=== PATIENT | female | born 1985 | race Caucasian/White ===

== ENCOUNTER 2016-11-16 08:45 | Outpatient (CLI) | payer OTHER | END 2016-11-16 08:46 | disposition home or self-care (01) | DX: Z36 Encounter for antenatal screening of mother (principal) ==

== ENCOUNTER 2016-11-22 14:40 | Outpatient (CLI) | payer OTHER | END 2016-11-22 15:15 | disposition home or self-care (01) | DX: Z34.83 Encounter for supervision of other normal pregnancy, third trimester (principal) ==

== ENCOUNTER 2016-12-05 23:06 | Outpatient (CLI) | payer OTHER ==
[2016-12-05] MEDS ORDERED: NIFEdipine 10 MG CAPSULE PO PRN (23:59)
[2016-12-06] MEDS ORDERED: LACTATED RINGERS 1,000 ML IV ONE (00:34)
[2016-12-06] MEDS ORDERED: SODIUM CHLORIDE FLUSH 0.9% 10 ML SYRINGE IVP ONE (00:57)
[2016-12-06] MEDS ORDERED: ACETAMINOPHEN 325 MG TABLET PO SCH ×2 (03:00→07:00)
[2016-12-06] MEDS ORDERED: LACTATED RINGERS 1,000 ML IV SCH (03:00)
[2016-12-06] MEDS ORDERED: ACETAMINOPHEN 325 MG TABLET PO ONE (07:00)
[2016-12-06] MEDS ORDERED: BETAMETHASONE 30 MG/5 ML VIAL IM ONE (07:30)
[2016-12-06] MEDS ORDERED: BETAMETHASONE 30 MG/5 ML VIAL ONE (08:46)
== END 2016-12-06 09:15 | disposition home or self-care (01) ==
DX: O60.03 Preterm labor without delivery, third trimester (principal); Z3A.31 31 weeks gestation of pregnancy; O34.219 Maternal care for unspecified type scar from previous cesarean delivery; N85.8 Other specified noninflammatory disorders of uterus; Z87.891 Personal history of nicotine dependence
CPT/HCPCS: 76816; 81001; 82731; 96372; 99214; A9270; J7120

== ENCOUNTER 2016-12-07 09:34 | Outpatient (CLI) | payer OTHER ==
[2016-12-07] MEDS ORDERED: BETAMETHASONE 30 MG/5 ML VIAL IM ONE (10:00)
== END 2016-12-07 10:00 | disposition home or self-care (01) ==
DX: O60.03 Preterm labor without delivery, third trimester (principal); Z3A.31 31 weeks gestation of pregnancy

== ENCOUNTER 2016-12-08 13:34 | Outpatient (CLI) | payer OTHER ==
[2016-12-08] MEDS ORDERED: NITROFURANTOIN MACRO 100 MG CAPSULE PO SCH (15:00)
[2016-12-08] MEDS ORDERED: NIFEdipine ER 90 MG TABLET PO SCH (15:00)
== END 2016-12-08 15:09 | disposition home or self-care (01) ==
DX: O23.13 Infections of bladder in pregnancy, third trimester (principal); O34.219 Maternal care for unspecified type scar from previous cesarean delivery; N85.8 Other specified noninflammatory disorders of uterus; Z3A.31 31 weeks gestation of pregnancy
CPT/HCPCS: 81001; 99213; A9270

== ENCOUNTER 2016-12-22 19:10 | Outpatient (CLI) | payer OTHER ==
[2016-12-22] MEDS ORDERED: TERBUTALINE 1 MG/ML VIAL SUBQ ONE (19:55)
[2016-12-22] MEDS ORDERED: TERBUTALINE 1 MG/ML VIAL SUBQ SCH (22:00)
[2016-12-22] MEDS ORDERED: TERBUTALINE 2.5 MG TABLET PO SCH (23:00)
== END 2016-12-22 23:28 | disposition home or self-care (01) ==
DX: O47.03 False labor before 37 completed weeks of gestation, third trimester (principal); Z3A.33 33 weeks gestation of pregnancy
CPT/HCPCS: 76817; 81001; 82731; 87081; 96372; 99214; A9270

== ENCOUNTER 2017-01-05 22:23 | Observation (INO) | payer OTHER ==
[2017-01-05] MEDS ORDERED: TERBUTALINE 1 MG/ML VIAL SUBQ ONE ×2 (22:41→22:45)
[2017-01-05] MEDS: AMOXICILLIN 250 MG CAPSULE PO SCH (23:51)
[2017-01-06] MEDS: TERBUTALINE 2.5 MG TABLET PO SCH ×2 (00:38→06:29)
[2017-01-06] MEDS: AMOXICILLIN 250 MG CAPSULE PO SCH (08:20)
== END 2017-01-06 08:25 | disposition home or self-care (01) ==
DX: O47.1 False labor at or after 37 completed weeks of gestation (principal); O23.93 Unspecified genitourinary tract infection in pregnancy, third trimester; B95.0 Streptococcus, group A, as the cause of diseases classified elsewhere; O34.219 Maternal care for unspecified type scar from previous cesarean delivery; N85.8 Other specified noninflammatory disorders of uterus; Z3A.37 37 weeks gestation of pregnancy
CPT/HCPCS: 81001; 96372; 99212; A9270

== ENCOUNTER 2017-01-30 11:17 | Outpatient (CLI) | payer OTHER | END 2017-01-30 11:18 | disposition home or self-care (01) | DX: Z01.818 Encounter for other preprocedural examination (principal); O34.219 Maternal care for unspecified type scar from previous cesarean delivery ==

== ENCOUNTER 2017-02-01 06:48 | Inpatient (IN) | payer OTHER ==
[~2017-02-01 06:48] MED LIST: LACTATED RINGERS 1,000 ML IV ONE
[2017-02-01] MEDS ORDERED: ceFAZolin 2 GM/50 ML 50 ML IV ONE (09:15)
[2017-02-01] MEDS ORDERED: CITRIC ACID/SODIUM CITRATE 15 ML UDC PO ONE (09:16)
[2017-02-01] MEDS ORDERED: LACTATED RINGERS 1,000 ML IV ONE ×2 (09:33→10:42)
[2017-02-01] MEDS ORDERED: MORPHINE PF 5 MG/10 ML AMP EP ONE (10:20)
[2017-02-01] MEDS ORDERED: ePHEDrine 50 MG/ML AMP IVP ONE (10:20)
[2017-02-01] MEDS ORDERED: ONDANSETRON 4 MG/2 ML VIAL IVP ONE (10:20)
[2017-02-01] MEDS ORDERED: fentaNYL 100 MCG/2 ML VIAL IVP ONE (10:20)
[2017-02-01] MEDS ORDERED: OXYTOCIN 10 UNIT/ML VIAL IV ONE (10:20)
[2017-02-01] MEDS ORDERED: diphenhydrAMINE INJ 50 MG/ML VIAL IVP ONE (10:20)
[2017-02-01] MEDS ORDERED: ACETAMINOPHEN 1,000 MG/100 ML VIAL IV ONE (10:20)
[2017-02-01] MEDS ORDERED: KETOROLAC 30 MG/ML VIAL IVP ONE (10:20)
[2017-02-01] MEDS ORDERED: METOCLOPRAMIDE 10 MG/2 ML VIAL IVP ONE (10:20)
[2017-02-01] MEDS ORDERED: ONDANSETRON 4 MG/2 ML VIAL IVP PRN (11:00)
[2017-02-01] MEDS ORDERED: diphenhydrAMINE 25 MG CAPSULE PO PRN (11:00)
[2017-02-01] MEDS ORDERED: OXYTOCIN/LACTATED RINGERS 250 ML IV ONE ×2 (11:00→22:10)
[2017-02-01] MEDS ORDERED: oxyCOD/ACETAMIN 5 MG/325 MG TABLET PO PRN (11:00)
[2017-02-01] MEDS: KETOROLAC 30 MG/ML VIAL IV SCH ×3 (17:03→23:55)
[2017-02-01] MEDS ORDERED: NALBUPHINE 20 MG/ML AMP IVP PRN (17:12)
[2017-02-01] MEDS: ACETAMINOPHEN 500 MG TABLET PO SCH (18:56)
[2017-02-01] MEDS: SIMETHICONE CHEW 80 MG TABLET PO SCH ×2 (18:56→22:16)
[2017-02-01] MEDS: DOCUSATE SODIUM 100 MG CAPSULE PO SCH (21:16)
[2017-02-01] MEDS ORDERED: SODIUM CHLORIDE FLUSH 0.9% 10 ML SYRINGE IVP ONE (23:16)
[2017-02-01] MEDS: LACTATED RINGERS 1,000 ML IV SCH (23:57)
[2017-02-02] MEDS: ACETAMINOPHEN 500 MG TABLET PO SCH ×4 (00:03→20:10)
[2017-02-02] MEDS: LACTATED RINGERS 1,000 ML IV SCH ×2 (00:04→03:34)
[2017-02-02] MEDS: IBUPROFEN 800 MG TABLET PO SCH ×5 (00:05→16:32)
[2017-02-02] MEDS ORDERED: SODIUM CHLORIDE FLUSH 0.9% 10 ML SYRINGE IVP ONE ×2 (01:54→10:30)
[2017-02-02] MEDS: oxyCODONE 5 MG TABLET PO PRN ×2 (04:21→15:49)
[2017-02-02] MEDS: KETOROLAC 30 MG/ML VIAL IV SCH (05:15)
[2017-02-02] MEDS: SIMETHICONE CHEW 80 MG TABLET PO SCH ×2 (05:30→16:32)
[2017-02-02] MEDS ORDERED: LEVOTHYROXINE 100 MCG TABLET PO SCH (09:00)
[2017-02-02] MEDS: SYNTHROID 150 MCG PO SCH (09:24)
[2017-02-02] MEDS: DOCUSATE SODIUM 100 MG CAPSULE PO SCH ×2 (09:25→20:10)
[2017-02-03] MEDS: SIMETHICONE CHEW 80 MG TABLET PO SCH ×2 (00:20→06:04)
[2017-02-03] MEDS: IBUPROFEN 800 MG TABLET PO SCH ×3 (00:21→12:36)
[2017-02-03] MEDS: oxyCODONE 5 MG TABLET PO PRN ×3 (00:30→12:36)
[2017-02-03] MEDS: ACETAMINOPHEN 500 MG TABLET PO SCH ×2 (03:24→12:36)
[2017-02-03] MEDS: SYNTHROID 150 MCG PO SCH (06:58)
[2017-02-03] MEDS: DOCUSATE SODIUM 100 MG CAPSULE PO SCH (08:33)
== END 2017-02-03 13:00 | disposition home or self-care (01) | DRG 766 ==
PROC: 10D00Z1 Extraction of Products of Conception, Low, Open Approach (ICD-10-PCS; principal; 2017-02-01 09:00)
DX: O34.211 Maternal care for low transverse scar from previous cesarean delivery (principal); N85.8 Other specified noninflammatory disorders of uterus; O99.284 Endocrine, nutritional and metabolic diseases complicating childbirth; E03.9 Hypothyroidism, unspecified; Z3A.38 38 weeks gestation of pregnancy; Z37.0 Single live birth

== ENCOUNTER 2017-02-14 10:39 | Outpatient (CLI) | payer OTHER | END 2017-02-14 10:40 | disposition home or self-care (01) | DX: R00.2 Palpitations (principal) ==

== ENCOUNTER 2017-05-01 08:00 | Outpatient (CLI) | payer OTHER | END 2017-05-01 08:01 | disposition home or self-care (01) | LOC: LAB.R 08:00 | PROVIDERS: ATTEND Obstetrics & Gynecology | DX: Z30.431 Encounter for routine checking of intrauterine contraceptive device (principal) | CPT/HCPCS: 87491; 87591 ==

== ENCOUNTER 2017-06-19 14:31 | Emergency (ER) | payer OTHER ==
[2017-06-19 15:35] LABS: BILIRUBIN,URINE NEGATIVE (NEGATIVE); PH,URINE 7.5 PH (5.0-7.5)
[2017-06-19 15:36] LABS: UA CHARGE (STRIP ONLY) YES; UR CULTURE IF IND NOT INDICATED
[2017-06-19 15:37] LABS: HCG UR QUAL NEGATIVE
[2017-06-19] MEDS ORDERED: HYDROmorphone 1 MG/ML SYRINGE IVP STA ×2 (15:53→19:39)
[2017-06-19] MEDS ORDERED: ONDANSETRON 4 MG/2 ML VIAL IVP STA ×2 (15:53→21:30)
--- NOTE | 2017-06-19 15:55 | ED Physician Documentation ---
PD HPI ABD PAIN - Stated complaint Stated Complaint: ABD PX - Chief complaint Chief Complaint: Abd Pain - History obtained from History obtained from: Patient, Family - History of Present Illness Timing - onset: Other (31-year-old woman, 4 months , had a , IUD in place with persistent bleeding. Starting around 9 AM developed relatively sudden onset right pelvic/right lower quadrant pain with nausea and vomiting but no urinary complaints or changes in bowel movements. No fevers.) Review of Systems Ten Systems: 10 systems reviewed and negative Constitutional: denies: Fever, Chills Throat: denies: Sore throat Cardiac: denies: Chest pain / pressure, Palpitations Respiratory: denies: Dyspnea PD PAST MEDICAL HISTORY - Past Medical History Neuro: Headache/migraine CHILD CAREGIVER: Ovarian cysts - Past Surgical History Past Surgical History: Yes /CHILD CAREGIVER: section - Present Medications Home Medications: Ambulatory Orders Medication Instructions Recorded Confirmed Levothyroxine Sodium [Synthroid] 150 mcg ORAL DAILY 06/19/17 06/19/17 - Allergies Allergies/Adverse Reactions: Allergies Allergy/AdvReac Type Severity Reaction Status Date / Time No Known Drug Allergies Allergy Verified 06/19/17 17:47 - Social History Does the pt smoke?: No Smoking Status: Never smoker Does the pt drink ETOH?: No Does the pt have substance abuse?: No - Family History Family history: reports: Non contributory - Immunizations Immunizations are current?: Yes - POLST Patient has POLST: No PD ED PE NORMAL - Vitals Vital signs reviewed: Yes - General General: Alert and oriented X 3, Other (Uncomfortable) - HEENT HEENT: PERRL, EOMI - Neck Neck: Supple, no meningeal sign, No bony TTP - Cardiac Cardiac: RRR, No murmur - Respiratory Respiratory: No respiratory distress, Clear bilaterally - Abdomen Abdomen: Other (Focally tender inferior to McBurney's point with positive Rovsing sign.) - Back Back: No CVA TTP, No spinal TTP - Derm Derm: Normal color, Warm and dry - Extremities Extremities: No edema, No calf tenderness / cord - Neuro Neuro: Alert and oriented X 3, Normal speech - Psych Psych: Normal mood, Normal affect Results - Vitals Vitals: Vital Signs - 24 hr 06/19/17 06/19/17 06/19/17 14:38 17:03 20:35 Temperature 36.0 C L 36.7 C Heart Rate 63 52 L 62 Respiratory 20 16 17 Rate Blood Pressure 122/73 119/69 124/70 O2 Saturation 98 99 94 Oxygen O2 Source Room air - Labs Labs: Laboratory Tests 06/19/17 06/19/17 06/19/17 15:30 15:30 16:57 WBC 7.8 RBC 5.18 Hgb 13.0 Hct 40.2 MCV 77.7 L MCH 25.1 L MCHC 32.3 RDW 14.3 Plt Count 305 MPV 7.9 Neut # 5.1 Lymph # 2.2 [place] # 0.5 Eos # 0.0 Baso # 0.0 Absolute Nucleated RBC 0.00 Nucleated RBCs 0.0 Sodium Potassium Chloride Carbon Dioxide Anion Gap BUN Creatinine Estimated GFR (MDRD) Glucose Calcium Total Bilirubin AST ALT Alkaline Phosphatase Total Protein Albumin Globulin Albumin/Globulin Ratio Lipase Urine Color YELLOW Urine Clarity CLEAR Urine pH 7.5 Ur Specific [place] 1.015 1.015 Urine Protein NEGATIVE Urine Glucose (UA) NEGATIVE Urine Ketones NEGATIVE Urine Occult Blood NEGATIVE Urine Nitrite NEGATIVE Urine Bilirubin NEGATIVE Urine Urobilinogen 0.2 (NORMAL) Ur Leukocyte Esterase NEGATIVE Ur Microscopic Review NOT INDICATED Urine Culture Comments NOT INDICATED Urine HCG, Qual NEGATIVE 06/19/17 16:57 WBC RBC Hgb Hct MCV MCH MCHC RDW Plt Count MPV Neut # Lymph # [place] # Eos # Baso # Absolute Nucleated RBC Nucleated RBCs Sodium 140 Potassium 4.0 Chloride 106 Carbon Dioxide 25 Anion Gap 9.0 BUN 13 Creatinine 0.7 Estimated GFR (MDRD) 97 Glucose 102 H Calcium 8.9 Total Bilirubin 0.3 AST 24 ALT 35 Alkaline Phosphatase 115 Total Protein 6.8 Albumin 4.1 Globulin 2.7 Albumin/Globulin Ratio 1.5 Lipase 31 Urine Color Urine Clarity Urine pH Ur Specific [place] Urine Protein Urine Glucose (UA) Urine Ketones Urine Occult Blood Urine Nitrite Urine Bilirubin Urine Urobilinogen Ur Leukocyte Esterase Ur Microscopic Review Urine Culture Comments Urine HCG, Qual - Rads (name of study) Pelvic sono Radiology: Prelim report reviewed (Normal, no ovarian cyst, IUD in position.) ct a/p Radiology: EMP read contemporaneously (Diverticulosis without diverticulitis) PD MEDICAL DECISION MAKING - ED course ED course: 31-year-old woman with acute right lower quadrant pain, seems like a history more consistent with ovarian pathology then appendix and her blood work was without leukocytosis or left shift so an ultrasound was initially pursued without any significant findings. Given persistent severe pain this was followed by CT. CT was without acute findings, she does have incidental diverticulosis which was discussed with her. Her pain was somewhat better at that point and she was given appendicitis/close follow-up precautions. Departure - Departure Disposition: Home, Self Care Clinical Impression: Abdominal pain Qualifiers: Abdominal location: right lower quadrant Qualified Code(s): R10.31 - Right lower quadrant pain Condition: Good Record reviewed to determine appropriate education?: Yes Instructions: ED Abdominal Pain Unkn Cause Comments: As discussed based on the workup and imaging there is no clear cause for your abdominal pain tonight. Return anytime if worse or if new symptoms develop, or in 12-24 hours if pain is not gone.
[2017-06-19] MEDS ORDERED: HYDROmorphone 1 MG/ML SYRINGE ONE ×2 (16:12→20:02)
[2017-06-19] MEDS ORDERED: ONDANSETRON 4 MG/2 ML VIAL ONE ×2 (16:12→21:32)
[2017-06-19 17:03] LABS: BASOPHILS % (AUTO) 0.5 %; EOSINOPHILS % (AUTO) 0.5 %; HCT - HEMATOCRIT 40.2 % (37.0-47.0); LYMPHOCYTES # (AUTO) 2.2 10^3/uL (1.5-3.5); LYMPHOCYTES % (AUTO) 27.7 %; MEAN CORPUSCULAR HEMOGLOBIN 25.1 pg (27.0-31.0); MEAN CORPUSCULAR HGB CONC 32.3 g/dL (32.0-36.0); MEAN CORPUSCULAR VOLUME 77.7 fL (81.0-99.0); MEAN PLATELET VOLUME 7.9 fL (7.9-10.8); MONOCYTES # (AUTO) 0.5 10^3/uL (0.0-1.0); MONOCYTES % (AUTO) 6.4 %; NEUTROPHILS # (AUTO) 5.1 10^3/uL (1.5-6.6); NEUTROPHILS % (AUTO) 64.9 %; RED BLOOD COUNT 5.18 10^6/uL (4.20-5.40); RED CELL DISTRIBUTION WIDTH 14.3 % (12.0-15.0); UNCORRECTED WHITE BLOOD COUNT 7.8 x10^3/uL; WHITE BLOOD COUNT 7.8 x10^3/uL (4.8-10.8)
[2017-06-19 17:13] LABS: ALBUMIN/GLOBULIN RATIO 1.5 (1.0-2.2); BILIRUBIN,TOTAL 0.3 mg/dL (0.2-1.0); CALCIUM 8.9 mg/dL (8.5-10.3); CREATININE 0.7 mg/dL (0.4-1.0); TOTAL PROTEIN 6.8 g/dL (6.7-8.2)
[2017-06-19] MEDS ORDERED: KETOROLAC 60 MG/2 ML VIAL IVP STA (17:42)
[2017-06-19] MEDS ORDERED: KETOROLAC 30 MG/ML VIAL ONE (18:05)
--- NOTE | 2017-06-19 19:45 | Ultrasound Preliminary Report ---
Exam: US Pelvic Complete - Non OB IMPRESSION: Normal study. IUD in place. [facility] SITE ID: [id number]
--- NOTE | 2017-06-19 19:47 | Ultrasound Report ---
REVISED: THIS REPORT WAS ORIGINALLY SIGNED ON 06/19/2017 @ 1947. ORDERS LINKED ON 06/22/2017. EXAM: PELVIC ULTRASOUND EXAM DATE: 06/19/2017 07:14 PM. CLINICAL HISTORY: R pelvic pain. COMPARISON: None. TECHNIQUE: Realtime transabdominal pelvic scan performed to identify the uterus and adnexa and as an overview of other pelvic structures, followed by transvaginal scan to provide greater detail of the uterus and adnexa, with static image documentation. FINDINGS: Uterus: 9.2 x 4.1 x 5.5 cm, volume 108 cc. Anteverted position. Normal overall size and echotexture. Masses: None. Endometrium: 5.[address] Cervix: Small nabothian cysts. Right Ovary: 3.5 x 2.1 x 3.3 cm, volume 12.6 cc. Normal echotexture and blood flow. Left Ovary: 3.5 x 1.9 x 2.2 cm, volume 7.6 cc. Normal echotexture and blood flow. Free Fluid: None. Other: None. IMPRESSION: Normal study. IUD in place. [facility] Referring Provider Line: [phone] SITE ID: [id number]
[2017-06-19] MEDS ORDERED: IOPAMIDOL-300 100 ML VIAL IVP ONE (21:27)
--- NOTE | 2017-06-19 22:06 | CT Preliminary Report ---
Exam: CT Abdomen/Pelvis W/ IMPRESSION: 1. Diverticulosis. No active inflammation. 2. IUD noted in the uterus. 3. Normal appendix. [facility] SITE ID: [id number]
--- NOTE | 2017-06-19 22:18 | CT Report ---
EXAM: CT ABDOMEN AND PELVIS EXAM DATE: 06/19/2017 09:31 PM. CLINICAL HISTORY: IV only, right lower quadrant pain. COMPARISONS: 06/19/2017. TECHNIQUE: Routine helical CT imaging was performed through the abdomen and pelvis. IV contrast: 100 mL of Isovue-300. Enteric contrast: No. Reconstructions: Coronal and sagittal. In accordance with CT protocol optimization, one or more of the following dose reduction techniques w ere utilized for this exam: automated exposure control, adjustment of mA and/or KV based on patient s ize, or use of iterative reconstructive technique. FINDINGS: Lung Bases: Unremarkable. Liver: Normal. No masses. Gallbladder/Bile Ducts: Unremarkable. Spleen: Normal. Pancreas: Normal. Adrenal Glands: Normal. Kidneys: Normal. No masses or hydronephrosis. 1.8 cm anterior left renal cyst. Peritoneal Cavity/Bowel: Normal. No free fluid, free air or adenopathy. No masses or acute inflammato ry process. The appendix is well visualized and normal. There are multiple diverticula seen which mos t severely affect the sigmoid colon. No wall thickening or adjacent inflammation seen. No obstructi on noted. Pelvic Organs: IUD is noted in the uterus. The bladder and visualized pelvic organs are within normal limits. Vasculature: No aneurysms or other significant abnormality. Bones: No significant abnormality. Other: Small umbilical hernia noted. No incarcerated bowel. IMPRESSION: 1. Diverticulosis. No active inflammation. 2. IUD noted in the uterus. 3. Normal appendix. [facility] Referring Provider Line: [phone] SITE ID: [id number]
[2017-06-19] MEDS ORDERED: ONDANSETRON ODT 4 MG Prepack 2 TL PRN (22:21)
[2017-06-19] MEDS ORDERED: HYDROcod/ACET 5/325 Prepack 6 PO STA (22:21)
[2017-06-19] MEDS ORDERED: HYDROcod/ACET 5/325 Prepack 6 PO ONE (22:28)
[2017-06-19] MEDS ORDERED: ONDANSETRON ODT 4 MG Prepack 2 TL ONE (22:28)
[2017-06-19 22:31] VITALS: BP 115/74
== END 2017-06-19 22:43 | disposition home or self-care (01) ==
LOC: ED 14:31
DX: R10.2 Pelvic and perineal pain (principal); R10.31 Right lower quadrant pain; Z97.5 Presence of (intrauterine) contraceptive device
CPT/HCPCS: 36415; 74177; 76830; 76856; 80053; 81003; 81025; 83690; 85025; 96374; 96375; 96376; 99283; 99284; J1170; Q9967; 81001; 87086

== ENCOUNTER 2017-06-20 17:19 | Emergency (ER) | payer OTHER ==
[2017-06-20] MEDS ORDERED: HYDROmorphone 1 MG/ML SYRINGE IVP STA (17:39)
[2017-06-20] MEDS ORDERED: ONDANSETRON 4 MG/2 ML VIAL IVP STA (17:39)
--- NOTE | 2017-06-20 17:43 | ED Physician Documentation ---
PD HPI ABD PAIN - Stated complaint Stated Complaint: LOW ABD PX/NAUSEA - Chief complaint Chief Complaint: Abd Pain - History obtained from History obtained from: Patient - History of Present Illness Timing - onset: Other (31-year-old woman, 4 months after , repeat . With IUD in place, with persistent bleeding from the IUD. She was seen last night with abrupt onset right lower quadrant pain. Labs were unremarkable. She had an ultrasound which was normal followed by a CT showing only diverticula. Discharged with instructions to return if not better. Today she has persistent pain, now across the pelvis and down into her groin a little bit but still worse on the right than the left with persistent bleeding, but not increased and nausea but no vomiting. 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 - Past Surgical History Past Surgical History: Yes /CUSTOM STUDIO COORDINATOR: section - Present Medications Home Medications: Ambulatory Orders Medication Instructions Recorded Confirmed Levothyroxine Sodium [Synthroid] 150 mcg ORAL DAILY 06/19/17 06/20/17 - Allergies Allergies/Adverse Reactions: Allergies Allergy/AdvReac Type Severity Reaction Status Date / Time No Known Drug Allergies Allergy Verified 06/19/17 17:47 - Social History Does the pt smoke?: No Smoking Status: Never smoker Does the pt drink ETOH?: No Does the pt have substance abuse?: No - Family History Family history: reports: Non contributory - Immunizations Immunizations are current?: Yes - POLST Patient has POLST: No PD ED PE NORMAL - Vitals Vital signs reviewed: Yes - General General: Alert and oriented X 3, Other (Uncomfortable) - HEENT HEENT: Moist mucous membranes, Pharynx benign - Neck Neck: Supple, no meningeal sign, No bony TTP - Cardiac Cardiac: RRR, No murmur - Respiratory Respiratory: No respiratory distress, Clear bilaterally - Abdomen Abdomen: Other (Tender in the pelvic area, right greater than left without surgical signs) - Female Female : Radiologic Technician present (Jayla CRAIG), Other (Moderate old appearing blood with low riding IUD which was removed with her wishes. No CMT, Mild L adnexal TTP.) - Back Back: No CVA TTP, No spinal TTP - Derm Derm: Normal color, Warm and dry - Extremities Extremities: No edema, No calf tenderness / cord - Neuro Neuro: Alert and oriented X 3, Normal speech - Psych Psych: Normal mood, Normal affect Results - Vitals Vitals: Vital Signs - 24 hr 06/20/17 06/20/17 06/20/17 17:24 18:38 19:25 Temperature 36.3 C L 36.8 C Heart Rate 61 52 L 56 L Respiratory 17 16 15 Rate Blood Pressure 132/84 H 126/75 111/67 O2 Saturation 98 95 96 06/20/17 21:15 Temperature 36.3 C L Heart Rate 57 L Respiratory 16 Rate Blood Pressure 118/65 O2 Saturation 99 Oxygen O2 Source Room air - Labs Labs: Laboratory Tests 06/20/17 06/20/17 18:04 18:04 WBC 6.8 RBC 5.19 Hgb 13.1 Hct 40.7 MCV 78.5 L MCH 25.3 L MCHC 32.3 RDW 14.6 Plt Count 306 MPV 8.0 Neut # 3.5 Lymph # 2.7 [place] # 0.5 Eos # 0.0 Baso # 0.1 Absolute Nucleated RBC 0.00 Nucleated RBCs 0.0 Sodium 140 Potassium 3.5 Chloride 108 Carbon Dioxide 25 Anion Gap 7.0 BUN 13 Creatinine 0.9 Estimated GFR (MDRD) 73 L Glucose 128 H Calcium 8.7 Total Bilirubin 0.6 AST 25 ALT 32 Alkaline Phosphatase 104 Total Protein 6.1 L Albumin 3.9 Globulin 2.2 Albumin/Globulin Ratio 1.8 Lipase 25 PD MEDICAL DECISION MAKING - ED course ED course: 31-year-old woman with now about 30 hours of lower abdominal pain, moving across the bottom. Imaging, both sonogram and a CT was negative yesterday except for diverticula. Pelvic exam was done today with really no pelvic tenderness, per her request the IUD was removed and then we waited about an hour to see if her pain was getting better which was not, it was worsening. At that point I called the on-call surgeon, Dr. Yon Doherty who will come and consult. See his note, but briefly he felt that maybe she had some right sided constipation, but there was no surgical or other urgent need given her negative findings. Recommended trialing some mag citrate and outpatient follow-up. Departure - Departure Disposition: 01 Home, Self Care Clinical Impression: Abdominal pain, Pelvic pain Condition: Good Record reviewed to determine appropriate education?: Yes Instructions: Abdominal Pain Follow-Up: Yon Doherty MD [Provider Admit Priv/Credential] - Within 1 week Comments: Return anytime if worsening or for new symptoms, especially fever. Discharge Date/Time: 06/20/17 21:17
[2017-06-20] MEDS ORDERED: ONDANSETRON 4 MG/2 ML VIAL ONE (17:54)
[2017-06-20] MEDS ORDERED: HYDROmorphone 1 MG/ML SYRINGE ONE (17:54)
[2017-06-20] MEDS ORDERED: SODIUM CHLORIDE FLUSH 0.9% 10 ML SYRINGE IVP ONE (17:55)
[2017-06-20 18:12] LABS: BASOPHILS # (AUTO) 0.1 10^3/uL (0.0-0.1); BASOPHILS % (AUTO) 0.8 %; EOSINOPHILS % (AUTO) 0.7 %; HCT - HEMATOCRIT 40.7 % (37.0-47.0); HGB - HEMOGLOBIN 13.1 g/dL (12.0-16.0); LYMPHOCYTES # (AUTO) 2.7 10^3/uL (1.5-3.5); LYMPHOCYTES % (AUTO) 39.9 %; MEAN CORPUSCULAR HEMOGLOBIN 25.3 pg (27.0-31.0); MEAN CORPUSCULAR HGB CONC 32.3 g/dL (32.0-36.0); MEAN CORPUSCULAR VOLUME 78.5 fL (81.0-99.0); MONOCYTES # (AUTO) 0.5 10^3/uL (0.0-1.0); MONOCYTES % (AUTO) 6.8 %; NEUTROPHILS # (AUTO) 3.5 10^3/uL (1.5-6.6); NEUTROPHILS % (AUTO) 51.8 %; RED BLOOD COUNT 5.19 10^6/uL (4.20-5.40); RED CELL DISTRIBUTION WIDTH 14.6 % (12.0-15.0); UNCORRECTED WHITE BLOOD COUNT 6.8 x10^3/uL; WHITE BLOOD COUNT 6.8 x10^3/uL (4.8-10.8)
[2017-06-20 18:25] LABS: ALBUMIN/GLOBULIN RATIO 1.8 (1.0-2.2); BILIRUBIN,TOTAL 0.6 mg/dL (0.2-1.0); CALCIUM 8.7 mg/dL (8.5-10.3); CREATININE 0.9 mg/dL (0.4-1.0); POTASSIUM 3.5 mmol/L (3.5-5.0); TOTAL PROTEIN 6.1 g/dL (6.7-8.2)
[2017-06-20] MEDS ORDERED: PROMETHAZINE INJ 12.5 MG in SODIUM CHLORIDE 0.9% 50 ML IV STA (19:00)
[2017-06-20] MEDS ORDERED: PROMETHAZINE 25 MG/1 ML VIAL ONE (19:28)
[2017-06-20] MEDS ORDERED: oxyCODONE/ACET 5/325 Prepack 4 PO STA (21:02)
[2017-06-20] MEDS ORDERED: MAGNESIUM CITRATE 296 ML BOTTLE PO STA (21:02)
[2017-06-20] MEDS ORDERED: oxyCODONE/ACET 5/325 Prepack 4 PO ONE (21:11)
[2017-06-20] MEDS ORDERED: MAGNESIUM CITRATE 296 ML BOTTLE ONE (21:12)
[2017-06-20 21:17] VITALS: BP 118/65
== END 2017-06-20 21:17 | disposition home or self-care (01) ==
LOC: ED 17:19
DX: R10.2 Pelvic and perineal pain (principal); Z30.432 Encounter for removal of intrauterine contraceptive device
CPT/HCPCS: 36415; 80053; 83690; 85025; 87491; 87591; 96365; 96375; 99283; 99284; A9270; J1170; J7040

== ENCOUNTER 2017-10-31 22:35 | Emergency (ER) | payer OTHER ==
--- NOTE | 2017-10-31 22:46 | ED Physician Documentation ---
PD HPI ABD PAIN - Stated complaint Stated Complaint: ABD PX - Chief complaint Chief Complaint: Abd Pain - History obtained from History obtained from: Patient - History of Present Illness Timing - onset: Enter time (17:00), Today Timing - duration: Hours Timing - details: Abrupt onset, Waxing and waning Pain level now: 6 Quality: Sharp, Pain Location: RLQ Radiation: Other (pain does not radiate) Improved by: Laying still, Position Worsened by: Moving, Position Associated symptoms: No: Fever, Nausea, Vomiting, Diarrhea, Constipation Similar symptoms before: Has not had sx before Recently seen: Not recently seen - Additional information Additional information: c/o right lower quadrant pain, sharp, since 5 PM , waxing and waning. Review of Systems Constitutional: denies: Fever, Chills, Sweats Cardiac: reports: Reviewed and negative Respiratory: reports: Reviewed and negative GI: reports: Abdominal Pain. denies: Nausea, Vomiting, Constipation, Diarrhea : reports: LMP (yesterday (4-5 days late)). 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 - Past Surgical History Past Surgical History: Yes /NURSERY ATTENDANT: section - Present Medications Home Medications: Ambulatory Orders Medication Instructions Recorded Confirmed Levothyroxine Sodium [Synthroid] 150 mcg ORAL DAILY 06/19/17 10/31/17 oxyCODONE/ACET 5/325 [Percocet 5 1 - 2 each PO Q6H PRN #10 tablet 11/01/17 mg/325 mg] - Allergies Allergies/Adverse Reactions: Allergies Allergy/AdvReac Type Severity Reaction Status Date / Time No Known Drug Allergies Allergy Verified 10/31/17 22:40 - Social History Does the pt smoke?: No Smoking Status: Never smoker Does the pt drink ETOH?: No Does the pt have substance abuse?: No - Immunizations Immunizations are current?: Yes - POLST Patient has POLST: No PD ED PE NORMAL - Vitals Vital signs reviewed: Yes - General General: Alert and oriented X 3, Well developed/nourished, Other (appears to be in waxing and waning degree of pain during H+P) - HEENT HEENT: Moist mucous membranes - Neck Neck: Supple, no meningeal sign - Cardiac Cardiac: RRR, No murmur - Respiratory Respiratory: No respiratory distress, Clear bilaterally - Abdomen Abdomen: Soft, Non distended - Back Back: No CVA TTP - Derm Derm: Normal color, Warm and dry - Extremities Extremities: No edema - Neuro Neuro: Alert and oriented X 3 PD ED PE EXPANDED - Abdomen Abdomen: Tender to palpation (RLQ), Other ((+) Rovsing's sign (with palpation LLQ)). No: Rebound, Guarding Results - Vitals Vitals: Vital Signs - 24 hr 10/31/17 10/31/17 10/31/17 22:38 23:36 23:55 Temperature 36.7 C Heart Rate 82 60 64 Respiratory 18 14 16 Rate Blood Pressure 156/110 H 142/95 H 142/95 H O2 Saturation 98 97 98 11/01/17 01:10 Temperature 36.4 C L Heart Rate 68 Respiratory 16 Rate Blood Pressure 142/90 H O2 Saturation 100 Oxygen O2 Source Room air - Labs Labs: Laboratory Tests 10/31/17 10/31/17 10/31/17 22:45 22:47 22:47 WBC 14.8 H RBC 5.93 H Hgb 14.7 Hct 45.6 MCV 77.0 L MCH 24.9 L MCHC 32.3 RDW 14.2 Plt Count 363 MPV 7.7 L Neut # 8.5 H Lymph # 5.2 H [place] # 0.9 Eos # 0.1 Baso # 0.1 Absolute Nucleated RBC 0.00 Band Neuts % (Manual) Not Reportable Abnorm Lymph % (Manual) Not Reportable Nucleated RBC % 0.0 Neutrophils # (Manual) Not Reportable Lymphocytes # (Manual) Not Reportable Monocytes # (Manual) Not Reportable Eosinophils # (Manual) Not Reportable Basophils # (Manual) Not Reportable Differential Comment MANUAL=AUTO DIFF Manual Slide Review Indicated Platelet Estimate NORMAL (130-450,000) RBC Morph Micro Appear NORMAL APPEARANCE Sodium 137 Potassium 3.7 Chloride 103 Carbon Dioxide 19 L Anion Gap 15.0 H BUN 14 Creatinine 0.8 Estimated GFR (MDRD) 83 L Glucose 100 Calcium 9.9 Total Bilirubin 0.3 AST 26 ALT 35 Alkaline Phosphatase 101 Total Protein 8.0 Albumin 4.7 Globulin 3.3 Albumin/Globulin Ratio 1.4 Lipase 45 Urine Color YELLOW Urine Clarity CLEAR Urine pH 6.0 Ur Specific [place] 1.025 Urine Protein NEGATIVE Urine Glucose (UA) NEGATIVE Urine Ketones NEGATIVE Urine Occult Blood SMALL H Urine Nitrite NEGATIVE Urine Bilirubin NEGATIVE Urine Urobilinogen 0.2 (NORMAL) Ur Leukocyte Esterase NEGATIVE Urine RBC 0-5 Urine WBC 0-3 Ur Squamous Epith Cells MANY Squamous H Urine Bacteria None Seen Ur Microscopic Review INDICATED Urine Culture Comments NOT INDICATED Urine HCG, Qual NEGATIVE - Rads (name of study) CT A/P Radiology: Prelim report reviewed, See rad report PD MEDICAL DECISION MAKING - ED course Complexity details: reviewed old records, reviewed results, re-evaluated patient , considered differential, d/w patient Departure - Departure Disposition: Home, Self Care Clinical Impression: Abdominal pain Condition: Good Instructions: ED Abdominal Pain Unkn Cause Follow-Up: ZELDA Moy [Provider Group] Prescriptions: oxyCODONE/ACET 5/325 [Percocet 5 mg/325 mg] 1 - 2 each PO Q6H PRN #10 tablet PRN Reason: Pain Discharge Date/Time: 11/01/17 01:12
[2017-10-31 22:53] LABS: BILIRUBIN,URINE NEGATIVE (NEGATIVE); GLUCOSE, URINE (UA) NEGATIVE (NEGATIVE); KETONES,URINE (UA) NEGATIVE (NEGATIVE); LEUKOCYTE ESTERASE, URINE NEGATIVE (NEGATIVE); NITRITE,URINE NEGATIVE (NEGATIVE); OCCULT BLOOD,URINE SMALL (NEGATIVE); PROTEIN,URINE NEGATIVE (NEGATIVE); UROBILINOGEN,URINE 0.2 (NORMAL) E.U./dL (NORMAL)
[2017-10-31 22:54] LABS: BASOPHILS # (AUTO) 0.1 10^3/uL (0.0-0.1); BASOPHILS % (AUTO) 0.8 %; EOSINOPHILS # (AUTO) 0.1 10^3/uL (0.0-0.7); EOSINOPHILS % (AUTO) 0.8 %; HGB - HEMOGLOBIN 14.7 g/dL (12.0-16.0); LYMPHOCYTES # (AUTO) 5.2 10^3/uL (1.5-3.5); MEAN CORPUSCULAR HEMOGLOBIN 24.9 pg (27.0-31.0); MEAN CORPUSCULAR HGB CONC 32.3 g/dL (32.0-36.0); MEAN PLATELET VOLUME 7.7 fL (7.9-10.8); MONOCYTES # (AUTO) 0.9 10^3/uL (0.0-1.0); MONOCYTES % (AUTO) 6.1 %; NEUTROPHILS # (AUTO) 8.5 10^3/uL (1.5-6.6); NEUTROPHILS % (AUTO) 57.3 %; PLT - PLATELET COUNT 363 10^3/uL (130-450); RED BLOOD COUNT 5.93 10^6/uL (4.20-5.40); RED CELL DISTRIBUTION WIDTH 14.2 % (12.0-15.0); WHITE BLOOD COUNT 14.8 x10^3/uL (4.8-10.8)
[2017-10-31 22:54] LABS: CLARITY,URINE CLEAR (CLEAR)
[2017-10-31 22:55] LABS: HCG UR QUAL NEGATIVE
[2017-10-31 23:02] LABS: RBC,URINE 0-5 /HPF (0-5)
[2017-10-31] MEDS ORDERED: SODIUM CHLORIDE 0.9% 1,000 ML IV STA (23:02)
[2017-10-31] MEDS ORDERED: MORPHINE 2 MG/ML SYRINGE IVP STA (23:02)
[2017-10-31 23:03] LABS: BACTERIA,URINE None Seen /HPF (None Seen); SQUAMOUS EPITHELIAL CELL,UR MANY Squamous (<= Few)
[2017-10-31 23:05] LABS: ALBUMIN 4.7 g/dL (3.2-5.5); ALBUMIN/GLOBULIN RATIO 1.4 (1.0-2.2); BILIRUBIN,TOTAL 0.3 mg/dL (0.2-1.0); CALCIUM 9.9 mg/dL (8.5-10.3); CREATININE 0.8 mg/dL (0.4-1.0)
[2017-10-31] MEDS ORDERED: IOPAMIDOL-300 100 ML VIAL ONE (23:18)
[2017-10-31 23:37] LABS: DIFFERENTIAL COMMENT MANUAL=AUTO DIFF; PLATELET ESTIMATE, MANUAL NORMAL (130-450,000) (NORMAL); RBC MORPHOLOGY (MULTIPLE) NORMAL APPEARANCE (NORMAL)
[2017-10-31] MEDS ORDERED: IOPAMIDOL-300 100 ML VIAL IVP ONE (23:38)
--- NOTE | 2017-11-01 00:03 | CT Report ---
EXAM: CT ABDOMEN AND PELVIS EXAM DATE: 10/31/2017 11:42 PM. CLINICAL HISTORY: RLQ pain, tenderness. COMPARISONS: 06/19/2017. TECHNIQUE: Routine helical CT imaging was performed through the abdomen and pelvis. IV contrast: 100M L ISOVUE 300. Enteric contrast: No. Reconstructions: Coronal and sagittal. In accordance with CT protocol optimization, one or more of the following dose reduction techniques w ere utilized for this exam: automated exposure control, adjustment of mA and/or KV based on patient s ize, or use of iterative reconstructive technique. FINDINGS: Lung Bases: Unremarkable. Liver: No focal lesion identified. Gallbladder/Bile Ducts: Unremarkable. Spleen: Mildly enlarged at 13.2 cm. Pancreas: Normal. Adrenal Glands: Normal. Kidneys: Left renal cyst is unchanged. No masses or hydronephrosis. Peritoneal Cavity/Bowel: No bowel obstruction seen. No diverticulitis. Normal-sized mesenteric lymph nodes. No free air or free fluid. Appendix appears normal. Pelvic Organs: Normal. The bladder and visualized pelvic organs are within normal limits. Vasculature: No aneurysms or other significant abnormality. Bones: No significant abnormality. Other: Small umbilical and periumbilical hernias containing fat. IMPRESSION: 1. Appendix appears normal. 2. Mild splenomegaly. 3. No acute abnormality seen. [facility] Referring Provider Line: [phone] SITE ID: [id number]
--- NOTE | 2017-11-01 00:03 | CT Preliminary Report ---
Exam: CT ABDOMEN/PELVIS W/ IMPRESSION: 1. Appendix appears normal. 2. Mild splenomegaly. 3. No acute abnormality seen. [facility] SITE ID: [id number]
[2017-11-01] MEDS ORDERED: KETOROLAC 60 MG/2 ML VIAL IVP STA (00:44)
[2017-11-01] MEDS ORDERED: oxyCODONE/ACET 5/325 Prepack 4 PO STA (00:44)
[2017-11-01 01:12] VITALS: BP 142/90
== END 2017-11-01 01:12 | disposition home or self-care (01) ==
LOC: ED 22:35
DX: R10.31 Right lower quadrant pain (principal); R10.32 Left lower quadrant pain
CPT/HCPCS: 36415; 74177; 80053; 81001; 81025; 83690; 85025; 96361; 96374; 96375; 99284; J2270; Q9967; 81003; 87086

== ENCOUNTER 2018-03-04 10:29 | Emergency (ER) | payer OTHER ==
[2018-03-04 11:03] LABS: BILIRUBIN,URINE NEGATIVE (NEGATIVE); GLUCOSE, URINE (UA) NEGATIVE (NEGATIVE); KETONES,URINE (UA) NEGATIVE (NEGATIVE); LEUKOCYTE ESTERASE, URINE NEGATIVE (NEGATIVE); NITRITE,URINE NEGATIVE (NEGATIVE); OCCULT BLOOD,URINE TRACE-LYSE (NEGATIVE); PROTEIN,URINE NEGATIVE (NEGATIVE); UROBILINOGEN,URINE 0.2 (NORMAL) E.U./dL (NORMAL)
[2018-03-04 11:04] LABS: BASOPHILS # (AUTO) 0.1 10^3/uL (0.0-0.1); BASOPHILS % (AUTO) 0.7 %; EOSINOPHILS % (AUTO) 0.3 %; HGB - HEMOGLOBIN 14.7 g/dL (12.0-16.0); LYMPHOCYTES # (AUTO) 2.4 10^3/uL (1.5-3.5); LYMPHOCYTES % (AUTO) 19.9 %; MEAN CORPUSCULAR HEMOGLOBIN 25.4 pg (27.0-31.0); MEAN CORPUSCULAR HGB CONC 32.9 g/dL (32.0-36.0); MEAN CORPUSCULAR VOLUME 77.3 fL (81.0-99.0); MEAN PLATELET VOLUME 8.2 fL (7.9-10.8); MONOCYTES # (AUTO) 0.5 10^3/uL (0.0-1.0); NEUTROPHILS # (AUTO) 9.1 10^3/uL (1.5-6.6); NEUTROPHILS % (AUTO) 75.1 %; PLT - PLATELET COUNT 288 10^3/uL (130-450); RED BLOOD COUNT 5.78 10^6/uL (4.20-5.40); RED CELL DISTRIBUTION WIDTH 14.2 % (12.0-15.0); WHITE BLOOD COUNT 12.1 x10^3/uL (4.8-10.8)
[2018-03-04 11:06] LABS: CLARITY,URINE SL. CLOUDY (CLEAR)
[2018-03-04 11:18] LABS: ALBUMIN 3.8 g/dL (3.2-5.5); ALBUMIN/GLOBULIN RATIO 1.2 (1.0-2.2); BILIRUBIN,TOTAL 0.6 mg/dL (0.2-1.0); CALCIUM 9.4 mg/dL (8.5-10.3); CREATININE 0.6 mg/dL (0.4-1.0); TOTAL PROTEIN 7.1 g/dL (6.7-8.2)
[2018-03-04 11:25] LABS: AMORPHOUS SEDIMENT,UR Moderate /LPF; BACTERIA,URINE Moderate /HPF (None Seen); SQUAMOUS EPITHELIAL CELL,UR MOD Squamous (<= Few)
--- NOTE | 2018-03-04 11:29 | ED Physician Documentation ---
PD HPI HEADACHE - Stated complaint Stated Complaint: HERNÁNDEZ/CRAMPING FEMALE / 9 WKS PREG - Chief complaint Chief Complaint: Abd Pain - History obtained from History obtained from: Patient, Family - History of Present Illness Timing - onset: How many days ago (3) Timing - onset during: Rest Timing - duration: Days (3) Timing - details: Gradual onset, Still present Worst headache ever?: No: Worst headache ever? Location: Front Quality: Throbbing Associated symptoms: Nausea, Vomiting. No: Fever, Stiff neck, Weakness, Numbness, Syncope, Seizure, Eye pain, Vision changes Improved by: Rest, Dark room, Quiet Worsened by: Light, Noise, Moving Contributing factors: No: Anticoagulated Similar symptoms before: Diagnosis (migraine) Recently seen: Other - Additional information Additional information: 32-year-old female with a history of migraine headaches has recently gone through in vitro fertilization and is with twins. She is approximately 9 weeks along. She has a history of migraines and is usually treated with Botox. She had her last Botox treatment 3 months ago and now she has a frontal headache. This is similar to what she usually gets with her headaches and she has had luck in the past with use of ibuprofen and Excedrin migraine. She has had some vomiting with this she has some nausea now and her headache is typical for her migraines. Review of Systems Constitutional: denies: Fever Eyes: reports: Photophobia. denies: Decreased vision Ears: denies: Ear pain Nose: denies: Rhinorrhea / runny nose, Congestion Throat: denies: Sore throat Cardiac: denies: Chest pain / pressure, Palpitations Respiratory: denies: Dyspnea, Cough GI: reports: Nausea, Vomiting. denies: Abdominal Pain : denies: Dysuria, Frequency Skin: denies: Rash Musculoskeletal: denies: Neck pain, Back pain, Extremity pain Neurologic: reports: Headache. denies: Generalized weakness, Focal weakness, Numbness, Head injury, LOC PD PAST MEDICAL HISTORY - Past Medical History Endocrine/Autoimmune: HyPOthyroidism COPY READER: Ovarian cysts - Past Surgical History Past Surgical History: Yes /COPY READER: section - Present Medications Home Medications: Ambulatory Orders Medication Instructions Recorded Confirmed Levothyroxine Sodium [Synthroid] 175 mcg ORAL DAILY 06/19/17 10/31/17 Progesterone,Micronized 100 mg PO BID 03/04/18 03/04/18 [Progesterone] - Allergies Allergies/Adverse Reactions: Allergies Allergy/AdvReac Type Severity Reaction Status Date / Time No Known Drug Allergies Allergy Verified 03/04/18 10:35 - Social History Does the pt smoke?: No Smoking Status: Never smoker Does the pt drink ETOH?: No Does the pt have substance abuse?: No - Immunizations Immunizations are current?: Yes - POLST Patient has POLST: No PD ED PE NORMAL - Vitals Vital signs reviewed: Yes (hypertensive ) - General General: Alert and oriented X 3, No acute distress, Well developed/nourished - HEENT HEENT: Atraumatic, PERRL, EOMI, Ears normal, Moist mucous membranes, Pharynx benign, Dentition benign - Neck Neck: Supple, no meningeal sign, No bony TTP, No JVD - Cardiac Cardiac: RRR, No murmur - Respiratory Respiratory: No respiratory distress, Clear bilaterally - Abdomen Abdomen: Soft, Non tender - Back Back: No CVA TTP, No spinal TTP - Derm Derm: Normal color, Warm and dry, No rash - Extremities Extremities: No deformity, No edema - Neuro Neuro: No motor deficit, No sensory deficit Eye Opening: Spontaneous Motor: Obeys Commands Verbal: Oriented GCS Score: 15 - Psych Psych: Normal mood, Normal affect Results - Vitals Vitals: Vital Signs - 24 hr 03/04/18 03/04/18 10:32 12:57 Temperature 36.7 C Heart Rate 75 62 Respiratory 18 14 Rate Blood Pressure 135/77 H 107/64 O2 Saturation 98 97 Oxygen O2 Source Room air - Labs Labs: Laboratory Tests 03/04/18 03/04/18 03/04/18 10:53 10:53 10:53 WBC 12.1 H RBC 5.78 H Hgb 14.7 Hct 44.6 MCV 77.3 L MCH 25.4 L MCHC 32.9 RDW 14.2 Plt Count 288 MPV 8.2 Neut # 9.1 H Lymph # 2.4 Spink # 0.5 Eos # 0.0 Baso # 0.1 Absolute Nucleated RBC 0.00 Nucleated RBC % 0.0 Sodium 135 Potassium 3.5 Chloride 104 Carbon Dioxide 22 Anion Gap 9.0 BUN 8 Creatinine 0.6 Estimated GFR (MDRD) 115 Glucose 115 H Calcium 9.4 Total Bilirubin 0.6 AST 20 ALT 28 Alkaline Phosphatase 71 Total Protein 7.1 Albumin 3.8 Globulin 3.3 Albumin/Globulin Ratio 1.2 Lipase 31 HCG, Quant 539746.00 Urine Color Urine Clarity Urine pH Ur Specific [place] Urine Protein Urine Glucose (UA) Urine Ketones Urine Occult Blood Urine Nitrite Urine Bilirubin Urine Urobilinogen Ur Leukocyte Esterase Urine RBC Urine WBC Ur Squamous Epith Cells Amorphous Sediment Urine Bacteria Ur Microscopic Review Urine Culture Comments 03/04/18 10:53 WBC RBC Hgb Hct MCV MCH MCHC RDW Plt Count MPV Neut # Lymph # Spink # Eos # Baso # Absolute Nucleated RBC Nucleated RBC % Sodium Potassium Chloride Carbon Dioxide Anion Gap BUN Creatinine Estimated GFR (MDRD) Glucose Calcium Total Bilirubin AST ALT Alkaline Phosphatase Total Protein Albumin Globulin Albumin/Globulin Ratio Lipase HCG, Quant Urine Color YELLOW Urine Clarity SL. CLOUDY Urine pH 6.0 Ur Specific [place] >=1.030 H Urine Protein NEGATIVE Urine Glucose (UA) NEGATIVE Urine Ketones NEGATIVE Urine Occult Blood TRACE-LYSE Urine Nitrite NEGATIVE Urine Bilirubin NEGATIVE Urine Urobilinogen 0.2 (NORMAL) Ur Leukocyte Esterase NEGATIVE Urine RBC 6-10 H Urine WBC 0-3 Ur Squamous Epith Cells MOD Squamous H Amorphous Sediment Moderate Urine Bacteria Moderate H Ur Microscopic Review INDICATED Urine Culture Comments NOT INDICATED Procedures - Bedside sono Bedside sono by EMP: With use of bedside ultrasound the pelvis is imaged demonstrating 2 separate fetuses with 2 separate sacs both of these fetuses have flickering heart tones. - IVC sono (time) 1140 Bedside IVC sono: IVC measures (cm) (1.51), Euvolemia PD MEDICAL DECISION MAKING - ED course Complexity details: reviewed old records, reviewed results, re-evaluated patient , considered differential, d/w patient, d/w family ED course: 32-year-old female with twins has developed a headache and her twins appear viable today she does not appear to be significantly dehydrated and she has a history of migraines. Her migraines are typically treated with ibuprofen migraine or Excedrin Migraine. Here in the emergency department she is given Toradol intravenously as well as Zofran. She has resolution of the nausea and only mild improvement in the headache and she is given fentanyl 100micrograms IV. Departure - Departure Disposition: 01 Home, Self Care Clinical Impression: Migraine Qualifiers: Migraine type: without aura Status migrainosus presence: without status migrainosus Intractability: not intractable Qualified Code(s): G43.009 - Migraine without aura, not intractable, without status migrainosus Condition: Stable Instructions: ED Headache Migraine Follow-Up: WILLIAM POTTER [Primary Care Provider] -
[2018-03-04] MEDS ORDERED: KETOROLAC 60 MG/2 ML VIAL IVP STA (11:43)
[2018-03-04] MEDS ORDERED: ONDANSETRON 4 MG/2 ML VIAL IVP STA (11:43)
[2018-03-04] MEDS ORDERED: fentaNYL 100 MCG/2 ML VIAL IVP STA (13:26)
[2018-03-04 14:07] VITALS: BP 110/67
== END 2018-03-04 14:09 | disposition home or self-care (01) ==
LOC: ED 10:29
DX: O99.351 Diseases of the nervous system complicating pregnancy, first trimester (principal); G43.009 Migraine without aura, not intractable, without status migrainosus; O30.091 Twin pregnancy, unable to determine number of placenta and number of amniotic sacs, first trimester; O99.281 Endocrine, nutritional and metabolic diseases complicating pregnancy, first trimester; E03.9 Hypothyroidism, unspecified; Z3A.09 9 weeks gestation of pregnancy
CPT/HCPCS: 36415; 80053; 81001; 81003; 83690; 84702; 85025; 86900; 86901; 87086; 96374; 96375; 99283; 99284

== ENCOUNTER 2018-04-07 14:48 | Emergency (ER) | payer OTHER ==
[2018-04-07 15:00] VITALS: BP 136/84
[2018-04-07] MEDS ORDERED: SODIUM CHLORIDE 0.9% 1,000 ML IV ONE ×2 (15:07→15:35)
[2018-04-07 15:20] LABS: BASOPHILS % (AUTO) 0.3 %; EOSINOPHILS # (AUTO) 0.1 10^3/uL (0.0-0.7); EOSINOPHILS % (AUTO) 1.1 %; HGB - HEMOGLOBIN 13.8 g/dL (12.0-16.0); LYMPHOCYTES # (AUTO) 2.3 10^3/uL (1.5-3.5); LYMPHOCYTES % (AUTO) 22.6 %; MEAN CORPUSCULAR HEMOGLOBIN 26.1 pg (27.0-31.0); MEAN CORPUSCULAR HGB CONC 33.3 g/dL (32.0-36.0); MEAN CORPUSCULAR VOLUME 78.6 fL (81.0-99.0); MEAN PLATELET VOLUME 7.9 fL (7.9-10.8); MONOCYTES # (AUTO) 0.6 10^3/uL (0.0-1.0); MONOCYTES % (AUTO) 6.3 %; NEUTROPHILS # (AUTO) 7.2 10^3/uL (1.5-6.6); NEUTROPHILS % (AUTO) 69.7 %; PLT - PLATELET COUNT 267 10^3/uL (130-450); RED BLOOD COUNT 5.29 10^6/uL (4.20-5.40); WHITE BLOOD COUNT 10.3 x10^3/uL (4.8-10.8)
[2018-04-07 15:33] LABS: ALBUMIN 3.2 g/dL (3.2-5.5); ALBUMIN/GLOBULIN RATIO 0.8 (1.0-2.2); BILIRUBIN,TOTAL 0.4 mg/dL (0.2-1.0); CALCIUM 8.9 mg/dL (8.5-10.3); CREATININE 0.5 mg/dL (0.4-1.0)
[2018-04-07] MEDS ORDERED: MECLIZINE 12.5 MG TABLET PO STA (15:35)
--- NOTE | 2018-04-07 15:39 | ED Physician Documentation ---
History of Present Illness - Stated complaint Stated Complaint: BLACKOUT/LIGHTHEADED 14 WEEKS - Chief complaint Chief Complaint: Neuro - Additonal information Additional information: hx from pt 32 f now 14 weeks with twins this has been complicated by vag bleeding - now resolved - she has had sono documenting IUPs she has been ill recently with a productive cough, no fever, no leg swelling, no travel today she lay down to rest and felt severe vertigo and like she was going to black out multiple time cj when she laid on her back felt overheated but no fever no abd pain or bleeding now has not had much fluids today nauseated 2/2 vertigo has tinnitus but that is not new Review of Systems Constitutional: denies: Fever, Chills, Sweats Respiratory: reports: Cough GI: reports: Nausea. denies: Abdominal Pain : reports: Now EGA Neurologic: reports: Generalized weakness, Other (vertigo). 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 - Past Surgical History Past Surgical History: Yes /FUNERAL ATTENDANT: section - Present Medications Home Medications: Ambulatory Orders Medication Instructions Recorded Confirmed Levothyroxine Sodium [Synthroid] 175 mcg ORAL DAILY 06/19/17 10/31/17 Meclizine [Antivert] 25 mg PO Q6H PRN #20 tablet 04/07/18 - Allergies Allergies/Adverse Reactions: Allergies Allergy/AdvReac Type Severity Reaction Status Date / Time No Known Drug Allergies Allergy Verified 03/04/18 10:35 - Social History Does the pt smoke?: No Smoking Status: Never smoker Does the pt drink ETOH?: No Does the pt have substance abuse?: No - Immunizations Immunizations are current?: Yes - POLST Patient has POLST: No PD ED PE NORMAL - Vitals Vital signs reviewed: Yes - General General: Alert and oriented X 3 - HEENT HEENT: PERRL, EOMI, Ears normal - Neck Neck: Supple, no meningeal sign - Cardiac Cardiac: RRR - Respiratory Respiratory: No respiratory distress, Clear bilaterally, Other (no rales on ronchi) - Abdomen Abdomen: Soft, Non tender - Derm Derm: Normal color - Extremities Extremities: No edema, No calf tenderness / cord - Neuro Neuro: Alert and oriented X 3 Results - Vitals Vitals: Vital Signs - 24 hr 04/07/18 14:55 Temperature 36.0 C L Heart Rate 67 Respiratory 17 Rate Blood Pressure 136/84 H O2 Saturation 98 Oxygen O2 Source Room air - EKG (time done) 1523 Rate: Rate (enter#) Rhythm: NSR [place]: Normal Intervals: Normal [place] Ischemia: Normal ST segments - Labs Labs: Laboratory Tests 04/07/18 04/07/18 04/07/18 15:16 15:16 16:23 WBC 10.3 RBC 5.29 Hgb 13.8 Hct 41.5 MCV 78.6 L MCH 26.1 L MCHC 33.3 RDW 14.0 Plt Count 267 MPV 7.9 Neut # (Auto) 7.2 H Lymph # (Auto) 2.3 [place] # (Auto) 0.6 Eos # (Auto) 0.1 Baso # (Auto) 0.0 Absolute Nucleated RBC 0.00 Nucleated RBC % 0.0 Sodium 135 Potassium 3.9 Chloride 105 Carbon Dioxide 24 Anion Gap 6.0 BUN 8 Creatinine 0.5 Estimated GFR (MDRD) 142 Glucose 89 Calcium 8.9 Total Bilirubin 0.4 AST 15 ALT 18 Alkaline Phosphatase 83 Total Protein 7.0 Albumin 3.2 Globulin 3.8 Albumin/Globulin Ratio 0.8 L Lipase 35 Urine Color YELLOW Urine Clarity CLEAR Urine pH 6.5 Ur Specific [place] 1.015 Urine Protein NEGATIVE Urine Glucose (UA) NEGATIVE Urine Ketones 15 H Urine Occult Blood NEGATIVE Urine Nitrite NEGATIVE Urine Bilirubin NEGATIVE Urine Urobilinogen 1 (NORMAL) Ur Leukocyte Esterase NEGATIVE Ur Microscopic Review NOT INDICATED Urine Culture Comments NOT INDICATED PD MEDICAL DECISION MAKING - ED course ED course: pt feeling much better after IVF and meclizine dizziness resolved no nausea ambulated to bathroom s assistance - Sepsis Event Vital Signs: Vital Signs - 24 hr 04/07/18 14:55 Temperature 36.0 C L Heart Rate 67 Respiratory 17 Rate Blood Pressure 136/84 H O2 Saturation 98 Oxygen O2 Source Room air Departure - Departure Disposition: 01 Home, Self Care Clinical Impression: Vertigo, URI, acute, Dehydration, and not yet delivered in second trimester Condition: Good Instructions: ED Dehydration, ED Near Syncope Unkn, ED Vertigo Unspecified Follow-Up: Ángel Monk MD [Provider Admit Priv/Credential] - Prescriptions: Meclizine [Antivert] 25 mg PO Q6H PRN #20 tablet PRN Reason: Dizziness Forms: Activity restrictions
[2018-04-07 16:40] LABS: BILIRUBIN,URINE NEGATIVE (NEGATIVE); GLUCOSE, URINE (UA) NEGATIVE (NEGATIVE); KETONES,URINE (UA) 15 mg/dL (NEGATIVE); LEUKOCYTE ESTERASE, URINE NEGATIVE (NEGATIVE); NITRITE,URINE NEGATIVE (NEGATIVE); OCCULT BLOOD,URINE NEGATIVE (NEGATIVE); PH,URINE 6.5 PH (5.0-7.5); PROTEIN,URINE NEGATIVE (NEGATIVE); UROBILINOGEN,URINE 1 (NORMAL) E.U./dL (NORMAL)
[2018-04-07 16:42] LABS: CLARITY,URINE CLEAR (CLEAR)
== END 2018-04-07 17:21 | disposition home or self-care (01) ==
LOC: ED 14:48
DX: O30.002 Twin pregnancy, unspecified number of placenta and unspecified number of amniotic sacs, second trimester (principal); R42 Dizziness and giddiness; J06.9 Acute upper respiratory infection, unspecified; E86.0 Dehydration
CPT/HCPCS: 36415; 80053; 81003; 83690; 85025; 93005; 96360; 96361; 99283; 99284; A9270; 81001; 87086

== ENCOUNTER 2018-04-10 16:32 | Outpatient (CLI) | payer OTHER ==
[2018-04-10 18:19] LABS: MUDS CUTOFF CONCENTRATIONS CUTOFF CONC BELOW:
[2018-04-10 19:08] LABS: AMPHETAMINE SCREEN,URINE NEGATIVE (NEGATIVE); BENZODIAZEPINES SCREEN, URINE NEGATIVE (NEGATIVE); COCAINE SCREEN URINE NEGATIVE (NEGATIVE); METHADONE SCREEN, URINE NEGATIVE (NEGATIVE); METHAMPHETAMINES SCREEN, URINE NEGATIVE (NEGATIVE); OPIATE SCREEN, URINE NEGATIVE (NEGATIVE); OXYCODONE SCREEN, URINE NEGATIVE (NEGATIVE); PROPOXYPHENE SCREEN, URINE NEGATIVE (NEGATIVE); TRICYCLIC ANTIDEPRESSANT,URINE NEGATIVE (NEGATIVE)
== END 2018-04-10 16:33 | disposition home or self-care (01) ==
LOC: LAB.R 16:32
PROVIDERS: ATTEND Obstetrics & Gynecology
DX: Z36.9 Encounter for antenatal screening, unspecified (principal); Z11.3 Encounter for screening for infections with a predominantly sexual mode of transmission
CPT/HCPCS: 80306; 87491; 87591

== ENCOUNTER 2018-05-08 14:52 | Outpatient (CLI) | payer OTHER ==
[2018-05-08 15:30] LABS: T4 (THYROXINE) 11.77 ug/dL (6.09-12.23)
[2018-05-08 15:34] LABS: THYROID STIMULATING HORMONE 0.46 uIU/mL (0.34-5.60)
[2018-05-08 15:36] LABS: FREE T4 (FREE THYROXINE) 0.79 ng/dL (0.58-1.64)
== END 2018-05-08 14:53 | disposition home or self-care (01) ==
LOC: LAB 14:52
PROVIDERS: ATTEND Obstetrics & Gynecology
DX: Z13.29 Encounter for screening for other suspected endocrine disorder (principal)
CPT/HCPCS: 36415; 84436; 84439; 84443

== ENCOUNTER 2018-05-26 17:52 | Outpatient (CLI) | payer OTHER ==
[2018-05-26 19:02] VITALS: BP 126/84
--- NOTE | 2018-05-26 20:07 | PROVIDER PROGRESS NOTE ---
Subjective - Prog Note Date Prog Note Date: 05/26/18 Prog Note Time: 20:00 - Subjective Subjective: Deja Moyer is a 32-year-old 3 para 2001 woman who achieved w IVF and has started her care at the [facility] women[facility] clinic t 16 weeks gestation. Her current ultrasound EDC is 10/03/2018, thereby, yielding a estimated gestational age of 21 weeks 4 days.She is a known twin (dichorionic/diamniotic) and is scheduled for an M evaluation on 19 June. Earlier in this she was noted to have spotting and bleeding episodes. Initial ultrasound confirmed placenta previa. Last week she was on a family vacation to [place] and noted increasing pelvic pain that has steadily progressed during her week at home. In [place] she used a wheelchair to minimize walking. Today she notes grade 3/10 aching pain in the mid pelvis constantly and grade 8/10 sharp pain on walking. She notes no contractions, leakage of fluid, or bloody show. She does report pelvic pressure. Additionally she notes that the left fetus has not moved as much as the right fetus today. She has no fevers chills dysuria or malaise. She denies recent illness or infectious exposure. She reports no lower leg cramps or calf pain. Objective - Vital Signs/Intake & Output Vital Signs: Vital Signs x48h Temp Pulse Resp BP 05/26/18 18:32 98.2 F 87 16 126/84 H Physical Exam - Physical Exam General: positive: Anxious, Alert HEENT: positive: Moist mucous membranes Neck: positive: Supple w/out meningeal sx Abdomen: positive: Normal Bowel sounds, Other (No organomegaly or abdominal tenderness; no flank tenderness) Female : positive: Normal external (Internal examination not performed due to known placenta previa; no blood or discharge on gualberto-pad), Enlarged uterus ( Uterus appropriate size approximately 24 cm, normal resting tone and no tenderness. No palpable contractions. Ultrasound reveals a dye amniotic with normal full movement and heart tones in fetus A and B) Extremities: positive: Non tender (No calf tenderness or Homans sign), Other ( Marked tenderness along the entire suprapubic symphysis. No palpable hernia) Neurologic: positive: Alert and Oriented X 3, Normal motor/no weakness, Normal reflexes, Normal Sensation, Normal Speech, Other (Able to tall toe walk but difficulty heel walking; straight leg raise negative bilaterally) Assessment/Plan - Assessment/Plan Assessment: Mrs. thorne is a 29-year-old woman with a known dichorionic diamniotic and placenta previa. She is at increased risk by virtue of being IVF . Her must she reports pelvic pain that seems to be mostly muscular skeletal. The pain is in the symphysis pubis and is fairly debilitating. Cannot determine if the symphysis pubis is without an MRI. There is no clinical symptoms of disk disease. Patient will require physical training and rehabilitation to remedy this pain. Tylenol is safe at this point for analgesia. Would like MFM evaluation prior to using any other nonsteroidals. Studies have shown narcotics are not effective for this type of pain. Essentially labor is been ruled out and the risk is very low given her cervical length of 4.6 cm. Plan: Patient to remain at pelvic rest due to placenta previa. Explained the nature of her muscular skeletal pain, its origins and current treatment. If the pain continues MRI of the symphysis and pelvic girdle would be useful. Tylenol will be used for pain relief. Patient is encouraged to walk on a limited basis and to back down on activity if pain, contractions or pelvic pressure occur. Patient should be seen in 1 week at our clinic for follow-up. 40 minutes was spent in direct patient contact most of which was counseling and education.
--- NOTE | 2018-05-26 22:29 | Ultrasound Report ---
Procedure Date: 05/26/2018 Accession Number: [id number] / [id number] Procedure: US - OB Limited CPT Code: FULL RESULT: EXAM: OB LIMITED EXAM DATE: 05/26/2018 08:02 PM. CLINICAL HISTORY: 21 week gestation, vaginal pain, placenta previa, decreased movements. COMPARISON: None. TECHNIQUE: Transabdominal sonographic evaluation performed. Static images obtained and reviewed. FINDINGS: Twin established gestational age 21 weeks, 3 days with JUSTINA 10/03/2018. Twin A is in variable position with heart rate 148 bpm. The placenta is posterior and extends over the internal cervical os. Amniotic fluid MVP 4.9 cm. Twin B is in variable position with heart rate 142 bpm. The placenta is anterior also extending to the internal cervical os. Amniotic fluid MVP 4.6 cm. The maternal cervix measures 4.6 cm in length and is closed. IMPRESSION: 1. 21 week 3 day twin gestation with UJSTINA 10/03/2018 based on established dates. 2. Both placentas extend inferiorly to and cover the internal cervical os. 3. The maternal cervix is long and closed measuring 4.6 cm in length. RADIA
== END 2018-05-26 20:30 | disposition home or self-care (01) ==
LOC: WFO 17:52 → FBP 17:55 → WFO 20:30
PROVIDERS: ATTEND Obstetrics & Gynecology
DX: O36.8120 Decreased fetal movements, second trimester, not applicable or unspecified (principal); O30.042 Twin pregnancy, dichorionic/diamniotic, second trimester; Z3A.21 21 weeks gestation of pregnancy; O09.812 Supervision of pregnancy resulting from assisted reproductive technology, second trimester; O44.02 Complete placenta previa NOS or without hemorrhage, second trimester; O99.89 Other specified diseases and conditions complicating pregnancy, childbirth and the puerperium; R10.2 Pelvic and perineal pain; M79.1 Myalgia
CPT/HCPCS: 76815; 99213

== ENCOUNTER 2018-06-19 10:51 | Outpatient (CLI) | payer OTHER | END 2018-06-19 10:52 | disposition home or self-care (01) | LOC: LAB 10:51 | PROVIDERS: ATTEND Obstetrics & Gynecology | DX: Z36.9 Encounter for antenatal screening, unspecified (principal) | CPT/HCPCS: 36415; 82950; 85018; 86850 ==

== ENCOUNTER 2018-06-26 12:02 | Outpatient (CLI) | payer OTHER ==
[2018-06-26 13:15] LABS: THYROID STIMULATING HORMONE 0.53 uIU/mL (0.34-5.60)
[2018-06-26 13:18] LABS: FREE T4 (FREE THYROXINE) 0.7 ng/dL (0.58-1.64)
== END 2018-06-26 12:03 | disposition home or self-care (01) ==
LOC: LAB 12:02
PROVIDERS: ATTEND Obstetrics & Gynecology
DX: E03.9 Hypothyroidism, unspecified (principal)
CPT/HCPCS: 36415; 84439; 84443; 84481

== ENCOUNTER 2018-06-30 20:47 | Outpatient (CLI) | payer OTHER ==
[2018-06-30 21:26] LABS: BILIRUBIN,URINE NEGATIVE (NEGATIVE); GLUCOSE, URINE (UA) NEGATIVE (NEGATIVE); KETONES,URINE (UA) NEGATIVE (NEGATIVE); LEUKOCYTE ESTERASE, URINE NEGATIVE (NEGATIVE); NITRITE,URINE NEGATIVE (NEGATIVE); OCCULT BLOOD,URINE NEGATIVE (NEGATIVE); PROTEIN,URINE NEGATIVE (NEGATIVE); UROBILINOGEN,URINE 0.2 (NORMAL) E.U./dL (NORMAL)
[2018-06-30 21:31] VITALS: BP 120/59
[2018-06-30 21:31] LABS: CLARITY,URINE CLEAR (CLEAR)
[2018-06-30] MEDS ORDERED: SODIUM CHLORIDE FLUSH 0.9% 10 ML SYRINGE ONE (21:42)
--- NOTE | 2018-06-30 23:57 | Ultrasound Report ---
Reason: Vaginal spotting Procedure Date: 06/30/2018 Accession Number: [id number] / [id number] Procedure: US - OB Transvaginal CPT Code: FULL RESULT: EXAM: OB TRANSVAGINAL, LIMITED EXAM DATE: 06/30/2018 11:13 PM. CLINICAL HISTORY: Vaginal spotting. Twin gestation. History of previa. Evaluate cervical length, previa. COMPARISONS: OB TRANSVAGINAL 12/22/2016. TECHNIQUE: Transvaginal ultrasound examination with static image documentation. IMPRESSION: 1. Cervix closed at 5.5 cm transvaginally. 2. No placenta previa seen. RADIA
== END 2018-07-01 00:09 | disposition home or self-care (01) ==
LOC: WFO 20:47 → FBP 20:51 → WFO 07-01 00:09
PROVIDERS: ATTEND Obstetrics & Gynecology
DX: O46.92 Antepartum hemorrhage, unspecified, second trimester (principal); O47.02 False labor before 37 completed weeks of gestation, second trimester; O30.002 Twin pregnancy, unspecified number of placenta and unspecified number of amniotic sacs, second trimester; Z3A.26 26 weeks gestation of pregnancy
CPT/HCPCS: 76817; 81001; 81003; 82731; 87086; 87210; 87491; 87591; 99214

== ENCOUNTER 2018-07-23 16:18 | Outpatient (CLI) | payer OTHER ==
[2018-07-23 17:19] LABS: HGB - HEMOGLOBIN 11.9 g/dL (12.0-16.0); MEAN CORPUSCULAR HEMOGLOBIN 24.9 pg (27.0-31.0); MEAN CORPUSCULAR HGB CONC 33.1 g/dL (32.0-36.0); MEAN CORPUSCULAR VOLUME 75.1 fL (81.0-99.0); MEAN PLATELET VOLUME 8.4 fL (7.9-10.8); RED BLOOD COUNT 4.76 10^6/uL (4.20-5.40); RED CELL DISTRIBUTION WIDTH 14.1 % (12.0-15.0); WHITE BLOOD COUNT 10.5 x10^3/uL (4.8-10.8)
[2018-07-23 17:29] LABS: ALBUMIN 2.8 g/dL (3.2-5.5); ALBUMIN/GLOBULIN RATIO 0.8 (1.0-2.2); BILIRUBIN,TOTAL 0.7 mg/dL (0.2-1.0); CALCIUM 8.8 mg/dL (8.5-10.3); CREATININE 0.5 mg/dL (0.4-1.0); TOTAL PROTEIN 6.4 g/dL (6.7-8.2); URIC ACID 4.8 mg/dL (2.6-7.2)
[2018-07-23 18:39] LABS: THYROID STIMULATING HORMONE 0.48 uIU/mL (0.34-5.60)
[2018-07-23 18:41] LABS: FREE T4 (FREE THYROXINE) 0.58 ng/dL (0.58-1.64)
== END 2018-07-23 16:19 | disposition home or self-care (01) ==
LOC: LAB 16:18
PROVIDERS: ATTEND Obstetrics & Gynecology
DX: Z34.90 Encounter for supervision of normal pregnancy, unspecified, unspecified trimester (principal); E03.9 Hypothyroidism, unspecified
CPT/HCPCS: 36415; 80053; 83615; 84439; 84443; 84481; 84550; 85027; 86850

== ENCOUNTER 2018-08-01 11:04 | Outpatient (CLI) | payer OTHER ==
[2018-08-01 12:00] LABS: BILIRUBIN,URINE NEGATIVE (NEGATIVE); GLUCOSE, URINE (UA) NEGATIVE (NEGATIVE); KETONES,URINE (UA) NEGATIVE (NEGATIVE); LEUKOCYTE ESTERASE, URINE NEGATIVE (NEGATIVE); NITRITE,URINE NEGATIVE (NEGATIVE); OCCULT BLOOD,URINE NEGATIVE (NEGATIVE); PROTEIN,URINE NEGATIVE (NEGATIVE); UROBILINOGEN,URINE 0.2 (NORMAL) E.U./dL (NORMAL)
[2018-08-01 12:01] LABS: CLARITY,URINE CLEAR (CLEAR)
[2018-08-01 12:09] LABS: BACTERIA,URINE Rare /HPF (None Seen); RBC,URINE 0-5 /HPF (0-5); SQUAMOUS EPITHELIAL CELL,UR FEW Squamous (<= Few)
[2018-08-01 12:18] LABS: RUPTURE OF MEMBRANES PLUS NEGATIVE (NEGATIVE)
[2018-08-01 12:19] VITALS: BP 136/84
--- NOTE | 2018-08-01 16:00 | PROVIDER PROGRESS NOTE ---
Subjective - Prog Note Date Prog Note Date: 08/01/18 Prog Note Time: 13:00 - Subjective Subjective: Suspected leaking fluid Di Di twins Placenta previa IVF Deaj keller is a 32-year-old 3 para 2002 woman at 30 weeks and 0 days by early ultrasound who reports leakage of clear fluid from the vagina. She is uncertain of the source because of irregular bouts of urinary incontinence. The fluid has no foul smell or blood. She does not report any contractions. She is a known placenta previa and is currently been referred to maternal for medicine and is under the care of Dr. Colvin. She has 2 prior sections. Currently she has no abdominal pain, nausea vomiting, diarrhea, fever or dysuria. Does admit to a mild URI with post nasal drip and sinus pressure. Objective - Vital Signs/Intake & Output Vital Signs: Vital Signs x48h Temp Pulse Resp BP Pulse Ox 08/01/18 12:12 98.1 F 99 18 136/84 H 98 08/01/18 11:24 98.1 F 109 H 20 134/86 H 98 - Lab Results Other Labs: Lab Results x24hrs 08/01/18 08/01/18 Range/Units 11:40 11:40 Urine Color YELLOW Urine Clarity CLEAR (CLEAR) Urine pH 6.0 (5.0-7.5) PH Ur Specific [place] 1.010 (1.002-1.030) Urine Protein NEGATIVE (NEGATIVE) mg/dL Urine Glucose (UA) NEGATIVE (NEGATIVE) mg/dL Urine Ketones NEGATIVE (NEGATIVE) mg/dL Urine Occult Blood NEGATIVE (NEGATIVE) Urine Nitrite NEGATIVE (NEGATIVE) Urine Bilirubin NEGATIVE (NEGATIVE) Urine Urobilinogen 0.2 (NORMAL) (NORMAL) E.U./dL Ur Leukocyte Esterase NEGATIVE (NEGATIVE) Urine RBC 0-5 (0-5) /HPF Urine WBC 0-3 (0-5) /HPF Ur Squamous Epith Cells FEW Squamous (<= Few) Urine Bacteria Rare (None Seen) /HPF Urine Culture Comments NOT INDICATED Membranes Rupture NEGATIVE (NEGATIVE) Exam - Exam Vital Signs: Vital Signs (72 hours) 08/01/18 08/01/18 11:24 12:12 Temperature 98.1 F 98.1 F Heart Rate [ 109 H 99 Apical] Respiratory 20 18 Rate Blood Pressure 134/86 H 136/84 H [Left Brachial artery] O2 Saturation 98 98 General: Alert, Oriented x3, No acute distress HEENT: Mucous membr. moist/pink Lungs: Clear to auscultation Cardiovascular: Regular rate, Normal S1, Normal S2, No murmurs Abdomen: Normal bowel sounds, No tenderness, No hepatospenomegaly, Other (Pelvic exam not done due to history of previa. Our OM plus swab taken from the lower portion of the vagina. Uterus accontractile, flaccid normal resting tone) Extremities: No edema Assessment/Plan - Assessment/Plan Assessment: This is a 31-week di-di-twin with known placental previa but no symptoms of labor or bleeding. Physical examination and NST showed no significant uterine activity. Our OM plus shows no evidence of leaking. Reviewed the results with the patient and gave her reassurance. Also gave her instructions to report back and to call Dr. Colvin's office ([facility]) if she begins to leak again or notes contractions. Plan: Patient discharged home with warning sign and callback instructions for labor or vaginal bleeding. She will see Dr. Colvin at the [facility] clinic in [place] on the .
== END 2018-08-01 12:27 | disposition home or self-care (01) ==
LOC: WFO 11:04 → FBP 11:07 → WFO 12:27
PROVIDERS: ATTEND Obstetrics & Gynecology
DX: O30.043 Twin pregnancy, dichorionic/diamniotic, third trimester (principal); O44.03 Complete placenta previa NOS or without hemorrhage, third trimester; O09.813 Supervision of pregnancy resulting from assisted reproductive technology, third trimester; Z3A.30 30 weeks gestation of pregnancy; O34.219 Maternal care for unspecified type scar from previous cesarean delivery
CPT/HCPCS: 81001; 84112; 87086; 99213

== ENCOUNTER 2019-04-07 01:50 | Emergency (ER) | payer OTHER ==
[2019-04-07 01:59] VITALS: BP 146/108
--- NOTE | 2019-04-07 02:44 | ED Physician Documentation ---
PD HPI URI - Stated complaint Stated Complaint: SORE THROAT/BILAT EAR PX - Chief complaint Chief Complaint: Heent - History obtained from History obtained from: Patient - History of Present Illness Timing - onset: How many days ago (2-3) Timing duration: Days Timing details: Gradual onset Pain level now: 6 Associated symptoms: Ear pain, Sore throat. 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 Other Past Medical History: ZAKIA'S - Past Surgical History Past Surgical History: Yes /RAILWAY YARD ASSISTANT: section - Present Medications Home Medications: Ambulatory Orders Medication Instructions Recorded Confirmed Levothyroxine Sodium [Synthroid] 175 mcg ORAL DAILY 06/19/17 10/31/17 Meclizine [Antivert] 25 mg PO Q6H PRN #20 tablet 04/07/18 oxyCODONE [Roxicodone] 5 - 10 mg PO Q6H PRN #14 tablet 04/07/19 - Allergies Allergies/Adverse Reactions: Allergies Allergy/AdvReac Type Severity Reaction Status Date / Time No Known Drug Allergies Allergy Verified 03/04/18 10:35 - Social History Does the pt smoke?: No Smoking Status: Never smoker Does the pt drink ETOH?: No Does the pt have substance abuse?: No - Immunizations Immunizations are current?: Yes - POLST Patient has POLST: No PD ED PE NORMAL - Vitals Vital signs reviewed: Yes - General General: Alert and oriented X 3, No acute distress, Well developed/nourished - HEENT HEENT: Ears normal, Moist mucous membranes, Pharynx benign - Neck Neck: Supple, no meningeal sign - Respiratory Respiratory: No respiratory distress, Clear bilaterally Results - Vitals Vitals: Vital Signs - 24 hr 04/07/19 01:56 Temperature 37.1 C Heart Rate 73 Respiratory 20 Rate Blood Pressure 146/108 H O2 Saturation 97 Oxygen O2 Source Room air - Labs Labs: Microbiology 04/07/19 02:00 Group A Strep Throat Culture - Preliminary Throat CULTURE IN PROGRESS. RESULTS TO FOLLOW. Laboratory Tests 04/07/19 02:00 Group A Strep Rapid Negative PD MEDICAL DECISION MAKING - ED course Complexity details: reviewed results, considered differential, d/w patient Departure - Departure Disposition: 01 Home, Self Care Clinical Impression: Pharyngitis Qualifiers: Pharyngitis/tonsillitis etiology: unspecified etiology Qualified Code(s): J02.9 - Acute pharyngitis, unspecified Condition: Good Instructions: ED Pharyngitis Viral Report Pending Follow-Up: WILLIAM POTTER [Primary Care Provider] - Prescriptions: oxyCODONE [Roxicodone] 5 - 10 mg PO Q6H PRN #14 tablet PRN Reason: Pain Discharge Date/Time: 04/07/19 03:24
[2019-04-07] MEDS ORDERED: oxyCODONE 5 MG TABLET PO STA (03:15)
[2019-04-07] MEDS ORDERED: IBUPROFEN 600 MG TABLET PO STA (03:15)
== END 2019-04-07 03:24 | disposition home or self-care (01) ==
LOC: ED 01:50
DX: J02.9 Acute pharyngitis, unspecified (principal)
CPT/HCPCS: 87070; 87430; 99283; A9270

== ENCOUNTER 2019-07-21 14:02 | Emergency (ER) | payer OTHER ==
--- NOTE | 2019-07-21 14:16 | ED Physician Documentation ---
PD HPI HEADACHE - Stated complaint Stated Complaint: MIGRAINE/CHEST AND ARM PX - Chief complaint Chief Complaint: Neuro - History obtained from History obtained from: Patient - History of Present Illness Timing - onset: Yesterday Timing - details: Abrupt onset (Symptoms at onset felt consistent with her typical migraine. She took Imitrex which usually works but it did not respond well to it. She has since continued with typical migraine type symptoms associated with some nausea and some vomiting. Prior to that for a day she had been having some intermittent upper abdominal to chest pain radiating to her mid back and some to the lower abdomen. She still has that symptoms.), Still present Worst headache ever?: No: Worst headache ever? (Similar to other migraines) Location: Front, Right Quality: Throbbing, Aching Associated symptoms: Nausea, Other (chest to upper/mid abd pain, radiating to mid back). No: Fever, Stiff neck, Vomiting, Weakness, Numbness Improved by: No: Meds (tried Imitrex without improvement) Worsened by: Light, Noise Contributing factors: Other (chest and abd pain for a day, with some nausea prior to headache onset). 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 denies: Loss of vision Nose: denies: Rhinorrhea / runny nose, Congestion Throat: denies: Sore throat Cardiac: reports: Chest pain / pressure Respiratory: denies: Cough GI: reports: Abdominal Pain, Nausea, Vomiting. denies: Constipation, Diarrhea : denies: Dysuria, Frequency Neurologic: reports: Headache. denies: Focal weakness, Numbness, Near syncope Endocrine: denies: Easy bruising / bleeding Immunocompromised: denies: Immunocompromised PD PAST MEDICAL HISTORY - Past Medical History Neuro: Migraines Endocrine/Autoimmune: HyPOthyroidism GI: None TEAROOM HOST/HOSTESS: Ovarian cysts - Past Surgical History Past Surgical History: Yes /TEAROOM HOST/HOSTESS: section - Present Medications Home Medications: Ambulatory Orders Medication Instructions Recorded Confirmed Levothyroxine Sodium [Synthroid] 175 mcg ORAL DAILY 06/19/17 10/31/17 Oxycodone HCl/Acetaminophen 1 - 2 each PO Q6H PRN #14 tablet 07/21/19 [Percocet 5-325 mg Tablet] Promethazine [Phenergan] 25 mg PO Q6H PRN #15 tab 07/21/19 dexAMETHasone [Decadron] 4 mg PO DAILY #5 tablet 07/21/19 - Allergies Allergies/Adverse Reactions: Allergies Allergy/AdvReac Type Severity Reaction Status Date / Time No Known Drug Allergies Allergy Verified 03/04/18 10:35 - Social History Does the pt smoke?: No Smoking Status: Never smoker Does the pt drink ETOH?: No Does the pt have substance abuse?: No - Family History Family history: reports: CAD, Sudden - Immunizations Immunizations are current?: Yes - POLST Patient has POLST: No PD ED PE NORMAL - Vitals Vital signs reviewed: Yes - General General: Alert and oriented X 3, Well developed/nourished, Other (Appears uncomfortable related to the headache and prefers a dark room.) - HEENT HEENT: Atraumatic, Moist mucous membranes, Pharynx benign - Neck Neck: Supple, no meningeal sign, No adenopathy - Cardiac Cardiac: RRR, No murmur - Respiratory Respiratory: Clear bilaterally - Abdomen Abdomen: Normal bowel sounds, Soft, Non distended (there is an umbilical hernia felt which is soft and reducible. ), No organomegaly, Other (There is some t enderness actually in the right lower quadrant and periumbilical area. Upper abdomen is not tender. There is no chest wall tenderness.) - Back Back: No CVA TTP - Derm Derm: Normal color, Warm and dry - Extremities Extremities: No tenderness to palpate, Normal ROM s pain, No edema, No calf tenderness / cord - Neuro Neuro: Alert and oriented X 3, water manager 2-12 intact, No motor deficit, No sensory deficit, Normal speech, Other Eye Opening: Spontaneous Motor: Obeys Commands Verbal: Oriented GCS Score: 15 Results - Vitals Vitals: Vital Signs - 24 hr 07/21/19 07/21/19 07/21/19 14:05 14:09 15:21 Temperature 36.3 C L 36.6 C Heart Rate 70 64 63 Respiratory 18 6 L 16 Rate Blood Pressure 144/91 H 134/92 H 146/106 H O2 Saturation 97 96 100 07/21/19 07/21/19 07/21/19 16:08 16:15 17:30 Temperature Heart Rate 49 L 65 62 Respiratory 16 16 16 Rate Blood Pressure 121/77 128/83 H 140/96 H O2 Saturation 100 99 98 07/21/19 07/21/19 18:09 19:03 Temperature 36.1 C L Heart Rate 67 56 L Respiratory 18 16 Rate Blood Pressure 137/95 H 146/85 H O2 Saturation 97 100 Oxygen O2 Source Room air - Labs Labs: Laboratory Tests 07/21/19 07/21/19 07/21/19 14:50 16:00 16:00 WBC 5.7 RBC 4.80 Hgb 12.2 Hct 38.5 MCV 80.2 L MCH 25.4 L MCHC 31.7 L RDW 14.4 Plt Count 230 MPV 10.0 Neut # (Auto) 4.1 Lymph # (Auto) 1.2 L [place] # (Auto) 0.4 Eos # (Auto) 0.0 Baso # (Auto) 0.0 Absolute Nucleated RBC 0.00 Nucleated RBC % 0.0 D-Dimer < 200.0 L Sodium Potassium Chloride Carbon Dioxide Anion Gap BUN Creatinine Estimated GFR (MDRD) Glucose Calcium Total Bilirubin AST ALT Alkaline Phosphatase Troponin I High Sens Total Protein Albumin Globulin Albumin/Globulin Ratio Lipase Urine Color YELLOW Urine Clarity CLEAR Urine pH 5.5 Ur Specific [place] 1.025 Urine Protein NEGATIVE Urine Glucose (UA) NEGATIVE Urine Ketones NEGATIVE Urine Occult Blood TRACE-LYSE Urine Nitrite NEGATIVE Urine Bilirubin NEGATIVE Urine Urobilinogen 0.2 (NORMAL) Ur Leukocyte Esterase NEGATIVE Ur Microscopic Review NOT INDICATED Urine Culture Comments NOT INDICATED Urine HCG, Qual NEGATIVE 07/21/19 07/21/19 16:15 16:15 WBC RBC Hgb Hct MCV MCH MCHC RDW Plt Count MPV Neut # (Auto) Lymph # (Auto) [place] # (Auto) Eos # (Auto) Baso # (Auto) Absolute Nucleated RBC Nucleated RBC % D-Dimer Sodium 139 Potassium 3.7 Chloride 107 Carbon Dioxide 27 Anion Gap 5.0 L BUN 6 Creatinine 0.8 Estimated GFR (MDRD) 82 L Glucose 111 H Calcium 8.0 L Total Bilirubin 0.5 AST 18 ALT 31 Alkaline Phosphatase 80 Troponin I High Sens < 2.3 L Total Protein 6.1 L Albumin 3.3 Globulin 2.8 Albumin/Globulin Ratio 1.2 Lipase 29 Urine Color Urine Clarity Urine pH Ur Specific [place] Urine Protein Urine Glucose (UA) Urine Ketones Urine Occult Blood Urine Nitrite Urine Bilirubin Urine Urobilinogen Ur Leukocyte Esterase Ur Microscopic Review Urine Culture Comments Urine HCG, Qual - Rads (name of study) head CT Radiology: Prelim report reviewed, See rad report (no acute process) chest/abd/pelvis CT Radiology: Prelim report reviewed (no acute process. Umbilical hernia with some dark fat - correlate clinically for incarceration (it is not tender and is easily reducible on exam). ), See rad report PD MEDICAL DECISION MAKING - ED course Complexity details: reviewed old records, re-evaluated patient, considered differential (The patient does not have recurrent visits for migraine. She states this is not unusual for her to have a loss as long not respond to the Imitrex. There is no focal neurologic deficits or red flags such as fever or injury. She has had some chest and belly pain to without much tenderness except in the lower abdomen. She was given IV fluids and the typical medicines for migraine with only slight improvement in the headache. She was then given doses of pain medicine along with other antiemetic with improvement in the headache. However did start coming back a bit an hour or so later. She is given some haloperidol along with hydromorphone with reasonable improvement of the headache but still had some. Reevaluation after the CT scan showed still some moderate headache. We will give her another dose of Reglan and hydromorphone and have her go home and rest. Presume it will be improved after that time we will give some starter doses for home of Percocet and Zofran. She should follow-up if not improved into tomorrow and return if needs.), d/w patient Departure - Departure Disposition: 01 Home, Self Care Clinical Impression: Chest pain at rest Migraine Qualifiers: Migraine type: without aura Status migrainosus presence: with status migrainosus Intractability: not intractable Qualified Code(s): G43.001 - Migraine without aura, not intractable, with status migrainosus Condition: Stable Record reviewed to determine appropriate education?: Yes Instructions: ED Chest Pain Atypical Unkn Cause, ED Headache Migraine Follow-Up: WILLIAM POTTER [Primary Care Provider] - Prescriptions: dexAMETHasone [Decadron] 4 mg PO DAILY #5 tablet Oxycodone HCl/Acetaminophen [Percocet 5-325 mg Tablet] 1 - 2 each PO Q6H PRN #14 tablet PRN Reason: pain Promethazine [Phenergan] 25 mg PO Q6H PRN #15 tab PRN Reason: Nausea / Vomiting Comments: Stay well-hydrated and rest at home. Use the ondansetron if needed for nausea and oxycodone if needed for headache. We did give some steroid Decadron which commonly will also help decrease migraine over several hours and into tomorrow. Recheck if not improved well into tomorrow with the headache gone. Return if needed. Your CT of the head did not show any acute structural problems. Therefore it does sound like just an intractable migraine and presume the above medications will help. I would presume your Imitrex will help with the next headache as it usually has. Your CT scan of the chest and belly did not show any acute process to account for the chest/abdomen/back pain. It may be musculoskeletal. It could be some pain in the stomach itself which may not show up on the CT scan. You could use an acid reducing medicine for the next week or so. You do have a small umbilical hernia which is not part of the problem right now. You do have a small ovarian cyst about [address] scan which I do not think is part of your problem right now either. Discharge Date/Time: 07/21/19 19:30
[2019-07-21] MEDS ORDERED: diphenhydrAMINE INJ 50 MG/ML VIAL IVP STA (14:34)
[2019-07-21] MEDS ORDERED: SODIUM CHLORIDE 0.9% 1,000 ML IV ONE (14:34)
[2019-07-21] MEDS ORDERED: KETOROLAC 30 MG/ML VIAL IVP STA (14:34)
[2019-07-21] MEDS ORDERED: METOCLOPRAMIDE 10 MG/2 ML VIAL IVP STA ×2 (14:34→18:56)
[2019-07-21 15:32] LABS: BILIRUBIN,URINE NEGATIVE (NEGATIVE); GLUCOSE, URINE (UA) NEGATIVE (NEGATIVE); KETONES,URINE (UA) NEGATIVE (NEGATIVE); LEUKOCYTE ESTERASE, URINE NEGATIVE (NEGATIVE); NITRITE,URINE NEGATIVE (NEGATIVE); OCCULT BLOOD,URINE TRACE-LYSE (NEGATIVE); PH,URINE 5.5 PH (5.0-7.5); PROTEIN,URINE NEGATIVE (NEGATIVE); UROBILINOGEN,URINE 0.2 (NORMAL) E.U./dL (NORMAL)
[2019-07-21 15:35] LABS: CLARITY,URINE CLEAR (CLEAR); HCG UR QUAL NEGATIVE
[2019-07-21] MEDS ORDERED: DEXAMETHASONE 10 MG/ML VIAL IVP STA (15:59)
[2019-07-21] MEDS ORDERED: HYDROmorphone 1 MG/ML CARPUJECT IVP STA ×2 (15:59→18:57)
[2019-07-21 16:11] LABS: BASOPHILS % (AUTO) 0.4 %; EOSINOPHILS % (AUTO) 0.5 %; HGB - HEMOGLOBIN 12.2 g/dL (12.0-16.0); LYMPHOCYTES # (AUTO) 1.2 10^3/uL (1.5-3.5); LYMPHOCYTES % (AUTO) 20.3 %; MEAN CORPUSCULAR HEMOGLOBIN 25.4 pg (27.0-31.0); MEAN CORPUSCULAR HGB CONC 31.7 g/dL (32.0-36.0); MEAN CORPUSCULAR VOLUME 80.2 fL (81.0-99.0); MONOCYTES # (AUTO) 0.4 10^3/uL (0.0-1.0); MONOCYTES % (AUTO) 6.2 %; NEUTROPHILS # (AUTO) 4.1 10^3/uL (1.5-6.6); NEUTROPHILS % (AUTO) 72.4 %; PLT - PLATELET COUNT 230 10^3/uL (130-450); RED CELL DISTRIBUTION WIDTH 14.4 % (12.0-15.0); WHITE BLOOD COUNT 5.7 x10^3/uL (4.8-10.8)
[2019-07-21 16:39] LABS: ALBUMIN 3.3 g/dL (3.2-5.5); ALBUMIN/GLOBULIN RATIO 1.2 (1.0-2.2); BILIRUBIN,TOTAL 0.5 mg/dL (0.2-1.0); CREATININE 0.8 mg/dL (0.4-1.0); TOTAL PROTEIN 6.1 g/dL (6.7-8.2)
[2019-07-21] MEDS ORDERED: IOVERSOL 320 100 ML VIAL IVP ONE (17:29)
[2019-07-21] MEDS ORDERED: HALOPERIDOL 5 MG/ML VIAL IVP ONE (17:54)
[2019-07-21] MEDS ORDERED: HYDROmorphone 2 MG/ML VIAL IVP STA (17:54)
--- NOTE | 2019-07-21 18:23 | CT Report ---
Reason: headache for 2 days Procedure Date: 07/21/2019 Accession Number: [id number] / [id number] Procedure: CT - HEAD WO CPT Code: FULL RESULT: EXAM: CT HEAD EXAM DATE: 07/21/2019 05:38 PM. CLINICAL HISTORY: Headache for 2 days. COMPARISON: MRI 01/08/2014. TECHNIQUE: Multiaxial CT images were obtained from the foramen magnum to the vertex. Reformats: Sagittal and coronal. IV contrast: None. In accordance with CT protocol optimization, one or more of the following dose reduction techniques were utilized for this exam: automated exposure control, adjustment of mA and/or KV based on patient size, or use of iterative reconstructive technique. FINDINGS: Parenchyma: No intraparenchymal hemorrhage. No evidence of mass, midline shift, or CT findings of infarction. Dawn-white differentiation is distinct. Extraaxial Spaces: Normal for age. No subdural or epidural collections identified. Ventricles: Normal in size and position. Sinuses and Orbits: Imaged paranasal sinuses, orbits, and mastoids show no significant abnormality. Bones: No evidence of fracture or calvarial defect. Other: None. IMPRESSION: 1. Negative for acute or focal abnormality by noncontrast CT RADIA
--- NOTE | 2019-07-21 18:32 | CT Report ---
Reason: chest and abd pain Procedure Date: 07/21/2019 Accession Number: [id number] / [id number] Procedure: CT - Abdomen/Pelvis W CPT Code: FULL RESULT: EXAM: CT ABDOMEN AND PELVIS WITH CONTRAST. EXAM DATE: 07/21/2019 05:54 PM. CLINICAL HISTORY: Chest and abdominal pain. COMPARISONS: ABDOMEN/PELVIS W/ 07/21/2019 5:41 PM. ABDOMEN/PELVIS W/ 10/31/2017 11:31 PM. TECHNIQUE: Routine helical CT imaging was performed through the abdomen and pelvis. IV contrast: 90 mL Optiray 320. Enteric contrast: No. Reconstructions: Coronal and sagittal. In accordance with CT protocol optimization, one or more of the following dose reduction techniques were utilized for this exam: automated exposure control, adjustment of mA and/or KV based on patient size, or use of iterative reconstructive technique. FINDINGS: Lung Bases: Unremarkable. Liver: Normal. No masses. Gallbladder/Bile Ducts: Unremarkable. Spleen: Measures 14.5 cm longitudinally, previously 12.8 cm. Pancreas: Normal. Adrenal Glands: Normal. Kidneys: There is a 2.5 cm cyst with a thin peripheral septation of the lower pole of the left kidney previously measuring 2.1 cm. The kidneys are otherwise unremarkable. Peritoneal Cavity/Bowel: Normal. No free fluid, free air or adenopathy. No masses or acute inflammatory process. The appendix is well visualized and normal. Pelvic Organs: The bladder is unremarkable. There is a 2.3 cm cyst within the left ovary. Vasculature: No aneurysms or other significant abnormality. Bones: No significant abnormality. Other: There is a small fat-containing umbilical hernia. IMPRESSION: 1. No bowel obstruction, fluid collection or acute inflammatory process. 2. There is a 2.3 cm cyst within the left ovary. 3. Prominent spleen and slightly increased in size since the comparison exam. RAD[facility]
--- NOTE | 2019-07-21 18:41 | CT Report ---
Reason: chest and abd pain Procedure Date: 07/21/2019 Accession Number: [id number] / [id number] Procedure: CT - CHEST W CPT Code: FULL RESULT: EXAM: CT CHEST, ABDOMEN AND PELVIS EXAM DATE: 07/21/2019 05:54 PM. CLINICAL HISTORY: Chest and abdominal pain COMPARISONS: ABDOMEN/PELVIS W/ 10/31/2017 11:31 PM. TECHNIQUE: Routine helical CT imaging was performed through the chest, abdomen, and pelvis. IV contrast: 90 cc Optiray 320. Enteric contrast: No. Reconstructions: Coronal and sagittal. In accordance with CT protocol optimization, one or more of the following dose reduction techniques were utilized for this exam: automated exposure control, adjustment of mA and/or KV based on patient size, or use of iterative reconstructive technique. FINDINGS: Imaged neck: Unremarkable. Central Airways: Unremarkable. Lungs: Unremarkable. Pleura: No pleural effusion. No pneumothorax. Heart: Unremarkable. Thoracic aorta: Unremarkable. Pulmonary Arteries: Enlarged main pulmonary artery. Esophagus: Grossly unremarkable. Liver: There is a 2 cm vague focus of hypoattenuation near the gallbladder fossa within the left lobe likely represents focal fat. The liver is otherwise unremarkable. Gallbladder: Unremarkable. Biliary: Unremarkable. Pancreas: Unremarkable. Spleen: Unremarkable. Adrenal glands: Unremarkable. Kidneys: Left renal cyst. Otherwise unremarkable. Urinary bladder: Unremarkable. Reproductive organs: Unremarkable. Bowel: Unremarkable. Stomach: Unremarkable. Appendix: Unremarkable. Miscellaneous: No free fluid. No extraluminal gas. Abdominal aorta: Normal in caliber. No significant aortic atherosclerosis. Lymph nodes: No pathologically enlarged lymph nodes. Bones: No acute fracture. No suspicious osseous lesions. Sidewalls: Small umbilical hernia containing omental fat which is slightly increased in size from prior study with increased duskiness in the omental fat in this region which can be seen in fat ischemia. Correlate clinically for incarceration. IMPRESSION: 1. Small umbilical hernia containing omental fat which is slightly increased in size from prior study with increased duskiness in the omental fat in this region which can be seen in fat ischemia. Correlate clinically for incarceration. 2. Enlarged main pulmonary artery which is nonspecific but can be seen in pulmonary hypertension. RADIA
[2019-07-21] MEDS ORDERED: oxyCODONE/ACET 5/325 Prepack 4 PO STA (18:57)
[2019-07-21] MEDS ORDERED: ONDANSETRON ODT 4 MG Prepack 2 TL PRN (18:57)
[2019-07-21] MEDS ORDERED: FAMOTIDINE 20 MG/2 ML VIAL IVP STA (18:57)
[2019-07-21 19:06] VITALS: BP 146/85
== END 2019-07-21 19:30 | disposition home or self-care (01) ==
LOC: ED 14:02
DX: G43.001 Migraine without aura, not intractable, with status migrainosus (principal); R07.9 Chest pain, unspecified
CPT/HCPCS: 36415; 70450; 71260; 74177; 80053; 81003; 81025; 83690; 84484; 85025; 85379; 93005; 96361; 96374; 96375; 99285; J1170; J1200; J2765; Q9967; 81001; 87086

== ENCOUNTER 2019-10-13 18:41 | Emergency (ER) | payer OTHER ==
--- NOTE | 2019-10-13 19:36 | ED Physician Documentation ---
PD HPI CHEST PAIN - Stated complaint Stated Complaint: CP - Chief complaint Chief Complaint: Cardiac - History obtained from History obtained from: Patient - History of Present Illness Timing - onset: Other (For the last week she has had on and off anterior sternal chest pain worse with deep breathing. It is nonexertional. Before a week ago she had never had this before. No recent travel, leg pain, pedal edema. No control. No possibility of . She is not short of breath. No nausea or sweats.) Review of Systems Constitutional: denies: Fever, Chills, Sweats Nose: denies: Rhinorrhea / runny nose, Congestion Cardiac: reports: Chest pain / pressure. 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: Ovarian cysts - Past Surgical History Past Surgical History: Yes /HAND II CUTTER: section - Present Medications Home Medications: Ambulatory Orders Medication Instructions Recorded Confirmed Levothyroxine Sodium [Synthroid] 175 mcg ORAL DAILY 06/19/17 10/31/17 Oxycodone HCl/Acetaminophen 1 - 2 each PO Q6H PRN #14 tablet 07/21/19 [Percocet 5-325 mg Tablet] Promethazine [Phenergan] 25 mg PO Q6H PRN #15 tab 07/21/19 dexAMETHasone [Decadron] 4 mg PO DAILY #5 tablet 07/21/19 - Allergies Allergies/Adverse Reactions: Allergies Allergy/AdvReac Type Severity Reaction Status Date / Time No Known Drug Allergies Allergy Verified 10/13/19 18:46 - Social History Does the pt smoke?: No Smoking Status: Never smoker Does the pt drink ETOH?: No Does the pt have substance abuse?: No - Immunizations Immunizations are current?: Yes - POLST Patient has POLST: No PD ED PE NORMAL - Vitals Vital signs reviewed: Yes - General General: Alert and oriented X 3, No acute distress - HEENT HEENT: PERRL, EOMI - Neck Neck: Supple, no meningeal sign, No bony TTP - Cardiac Cardiac: RRR, No murmur, Other (Focally tender over the costochondral joints) - Respiratory Respiratory: No respiratory distress, Clear bilaterally - Abdomen Abdomen: Non tender - Extremities Extremities: No edema, No calf tenderness / cord - Neuro Neuro: Alert and oriented X 3, Normal speech Results - Vitals Vitals: Vital Signs - 24 hr 10/13/19 10/13/19 18:46 20:11 Temperature 36.5 C 36.8 C Heart Rate 65 51 L Respiratory 14 16 Rate Blood Pressure 153/79 H 134/91 H O2 Saturation 98 97 Oxygen O2 Source Room air - EKG (time done) 1846 Rate: Rate (enter#) (63) Rhythm: NSR [place]: Normal Intervals: Normal [place] QRS: Normal Ischemia: Normal ST segments Computer interpretation: Agree with computer - Labs Labs: Laboratory Tests 10/13/19 19:44 Troponin I High Sens < 2.3 L - Rads (name of study) 2v chest Radiology: EMP read contemporaneously (Normal) PD MEDICAL DECISION MAKING - ED course ED course: 34-year-old woman with clinical costochondritis, PE RC negative. Heart score 1 (FHx) Departure - Departure Disposition: 01 Home, Self Care Clinical Impression: Costochondritis, acute Condition: Good Record reviewed to determine appropriate education?: Yes Instructions: ED Chest Pain Costochondritis Comments: As discussed, clinically it was called costochondritis which is a benign illness, unfortunately it actually usually lasts a little bit, return for new or worsening symptoms but take ibuprofen as needed for the symptoms.
--- NOTE | 2019-10-13 20:16 | XRAY Report ---
Reason: chest pain Procedure Date: 10/13/2019 Accession Number: [id number] / [id number] Procedure: XR - Chest 2 View X-Ray CPT Code: 39499 Final Report FULL RESULT: EXAM: CHEST RADIOGRAPHY EXAM DATE: 10/13/2019 07:53 PM. CLINICAL HISTORY: Chest pain. COMPARISON: 06/21/2011 12:42 AM. TECHNIQUE: 2 views. FINDINGS: Lungs/Pleura: No focal opacities evident. No pleural effusion. No pneumothorax. Normal volumes. Mediastinum: Heart and mediastinal contours are unremarkable. Other: None. IMPRESSION: Negative chest RADIA
[2019-10-13 20:31] VITALS: BP 145/96
== END 2019-10-13 20:29 | disposition home or self-care (01) ==
LOC: ED 18:41
DX: M94.0 Chondrocostal junction syndrome [Tietze] (principal); E03.9 Hypothyroidism, unspecified
CPT/HCPCS: 36415; 71046; 84484; 93005; 99284

== ENCOUNTER 2020-04-12 17:38 | Emergency (ER) | payer OTHER ==
[2020-04-12 18:07] LABS: BASOPHILS # (AUTO) 0.1 10^3/uL (0.0-0.1); BASOPHILS % (AUTO) 0.5 %; EOSINOPHILS # (AUTO) 0.1 10^3/uL (0.0-0.7); EOSINOPHILS % (AUTO) 0.7 %; HGB - HEMOGLOBIN 14.5 g/dL (12.0-16.0); LYMPHOCYTES # (AUTO) 3.1 10^3/uL (1.5-3.5); LYMPHOCYTES % (AUTO) 30.2 %; MEAN CORPUSCULAR HEMOGLOBIN 24.7 pg (27.0-31.0); MEAN CORPUSCULAR HGB CONC 31.6 g/dL (32.0-36.0); MEAN CORPUSCULAR VOLUME 78.3 fL (81.0-99.0); MEAN PLATELET VOLUME 9.5 fL (7.9-10.8); MONOCYTES # (AUTO) 0.6 10^3/uL (0.0-1.0); NEUTROPHILS # (AUTO) 6.4 10^3/uL (1.5-6.6); NEUTROPHILS % (AUTO) 62.3 %; PLT - PLATELET COUNT 339 10^3/uL (130-450); RED BLOOD COUNT 5.86 10^6/uL (4.20-5.40); WHITE BLOOD COUNT 10.3 x10^3/uL (4.8-10.8)
[2020-04-12 18:14] LABS: INR 1.2 (0.8-1.2); PT - PROTHROMBIN TIME 13.5 secs (9.9-12.6)
[2020-04-12 18:21] LABS: PARTIAL THROMBOPLASTIN TIME 35.9 secs (24.9-33.3)
[2020-04-12 18:23] LABS: ALBUMIN 4.4 g/dL (3.2-5.5); ALBUMIN/GLOBULIN RATIO 1.5 (1.0-2.2); BILIRUBIN,TOTAL 0.4 mg/dL (0.2-1.0); CALCIUM 9.3 mg/dL (8.5-10.3); CREATININE 0.8 mg/dL (0.4-1.0); TOTAL PROTEIN 7.4 g/dL (6.7-8.2)
[2020-04-12] MEDS ORDERED: HYOSCYAMINE SL 0.125 MG TABLET SL STA (18:38)
--- NOTE | 2020-04-12 18:40 | ED Physician Documentation ---
PD HPI ABD PAIN - Stated complaint Stated Complaint: BLOODY STOOL - Chief complaint Chief Complaint: Abd Pain - History obtained from History obtained from: Patient - History of Present Illness Pain level max: 6 Pain level now: 4 Quality: Cramping, Aching Location: RLQ, Suprapubic, LLQ Associated symptoms: Nausea, Hematochezia. No: Fever, Vomiting, Hematemesis, Diarrhea, Constipation, Melena, Dysuria, Hematuria, Chest pain, Dizzy, Vaginal dc Similar symptoms before: Has not had sx before - Additional information Additional information: 34-year-old female presents to the emergency department with Blood in her stool for the past month or 2. She made an appointment to see her doctor, but they never called on the telehealth visit. She states that it is normally bright red, occasionally mixed with stool and occasionally with clots. Over the past few days she has developed lower abdominal pain and cramping as well. Nothing makes it better or worse. No recent antibiotics. No recent travel. No family history of irritable bowel syndrome, inflammatory bowel disease or celiac disease. She was recently treated with hormonal therapy for IVF in December. 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: Ovarian cysts - Past Surgical History Past Surgical History: Yes /CHIPPER OPERATOR: section - Present Medications Home Medications: Ambulatory Orders Medication Instructions Recorded Confirmed Levothyroxine Sodium [Synthroid] 175 mcg ORAL DAILY 06/19/17 04/12/20 predniSONE [Deltasone] 10 mg PO [id number] #42 tab 04/12/20 - Allergies Allergies/Adverse Reactions: Allergies Allergy/AdvReac Type Severity Reaction Status Date / Time No Known Drug Allergies Allergy Verified 04/12/20 17:47 - Social History Does the pt smoke?: No Smoking Status: Never smoker Does the pt drink ETOH?: No Does the pt have substance abuse?: No - Immunizations Immunizations are current?: Yes - POLST Patient has POLST: No PD ED PE NORMAL - Vitals Vital signs reviewed: Yes - General General: Alert and oriented X 3, No acute distress, Well developed/nourished - HEENT HEENT: PERRL, Moist mucous membranes - Neck Neck: Supple, no meningeal sign - Cardiac Cardiac: RRR, Strong equal pulses - Respiratory Respiratory: No respiratory distress, Clear bilaterally - Abdomen Abdomen: Soft, Non distended, Other (Tender to palpation along the lower abdomen. No peritoneal signs) - Rectal Rectal: Other (Normal rectal exam. No bleeding. No stool in the vault. No tenderness. No hemorrhoids.) - Derm Derm: Warm and dry - Extremities Extremities: No edema - Neuro Neuro: Alert and oriented X 3 - Psych Psych: Normal mood, Normal affect Results - Vitals Vitals: Vital Signs - 24 hr 04/12/20 04/12/20 04/12/20 17:45 19:30 20:20 Temperature 36.7 C 37.1 C Heart Rate 96 83 68 Respiratory 16 16 16 Rate Blood Pressure 138/101 H 147/68 H 144/85 H O2 Saturation 98 98 98 Oxygen O2 Source Room air - Labs Labs: Laboratory Tests 04/12/20 04/12/20 04/12/20 18:00 18:00 18:00 WBC 10.3 RBC 5.86 H Hgb 14.5 Hct 45.9 MCV 78.3 L MCH 24.7 L MCHC 31.6 L RDW 14.0 Plt Count 339 MPV 9.5 Neut # (Auto) 6.4 Lymph # (Auto) 3.1 [place] # (Auto) 0.6 Eos # (Auto) 0.1 Baso # (Auto) 0.1 Absolute Nucleated RBC 0.00 Nucleated RBC % 0.0 PT 13.5 H INR 1.2 APTT 35.9 H Sodium 138 Potassium 3.5 Chloride 103 Carbon Dioxide 23 Anion Gap 12.0 BUN 17 Creatinine 0.8 Estimated GFR (MDRD) 82 L Glucose 115 H Calcium 9.3 Total Bilirubin 0.4 AST 20 ALT 27 Alkaline Phosphatase 94 Total Protein 7.4 Albumin 4.4 Globulin 3.0 Albumin/Globulin Ratio 1.5 Lipase 43 Urine Color Urine Clarity Urine pH Ur Specific [place] Urine Protein Urine Glucose (UA) Urine Ketones Urine Occult Blood Urine Nitrite Urine Bilirubin Urine Urobilinogen Ur Leukocyte Esterase Urine RBC Urine WBC Ur Squamous Epith Cells Urine Bacteria Urine Casts Ur Microscopic Review Urine Culture Comments Urine HCG, Qual Blood Type Antibody Screen 04/12/20 04/12/20 04/12/20 18:00 18:35 18:35 WBC RBC Hgb Hct MCV MCH MCHC RDW Plt Count MPV Neut # (Auto) Lymph # (Auto) [place] # (Auto) Eos # (Auto) Baso # (Auto) Absolute Nucleated RBC Nucleated RBC % PT INR APTT Sodium Potassium Chloride Carbon Dioxide Anion Gap BUN Creatinine Estimated GFR (MDRD) Glucose Calcium Total Bilirubin AST ALT Alkaline Phosphatase Total Protein Albumin Globulin Albumin/Globulin Ratio Lipase Urine Color YELLOW Urine Clarity CLEAR Urine pH 5.5 Ur Specific [place] >=1.030 H >=1.030 H Urine Protein NEGATIVE Urine Glucose (UA) NEGATIVE Urine Ketones NEGATIVE Urine Occult Blood SMALL H Urine Nitrite NEGATIVE Urine Bilirubin NEGATIVE Urine Urobilinogen 0.2 (NORMAL) Ur Leukocyte Esterase NEGATIVE Urine RBC 0-5 Urine WBC 0-3 Ur Squamous Epith Cells FEW Squamous Urine Bacteria None Seen Urine Casts 0-2 Hyaline Casts Ur Microscopic Review INDICATED Urine Culture Comments NOT INDICATED Urine HCG, Qual NEGATIVE Blood Type B POSITIVE Antibody Screen NEGATIVE - Rads (name of study) CT abd/pelvis Radiology: Prelim report reviewed, EMP read contemporaneously, See rad report (1. No acute intra-abdominal or pelvic process. 2. A cause for lower abdominal pain and bloody stool is not identified. 3. A 1.5 x 1.0 cm right adrenal nodule. Adrenal protocol CT or MRI is suggested for follow-up. 4. Simple left renal cyst. 5. Small umbilical hernia. There is mild stranding in the h) PD MEDICAL DECISION MAKING - ED course Complexity details: reviewed results, re-evaluated patient, considered differential, d/w patient ED course: 34-year-old female presents the emergency department with hematochezia for the past 2 months. No acute findings on blood work or CT scan. We will trial her on steroids, possible inflammatory bowel disease? Recommend that she have a follow-up colonoscopy and likely GI consult. Patient also counseled that she needs to follow-up regarding the right adrenal nodule. Copy of the CT read was placed on her discharge papers. This document was made in part using voice recognition software. While efforts are made to proofread this document, sound alike and grammatical errors may occur. Patient has had no palpitations, hot flashes, sweating. Departure - Departure Disposition: Home, Self Care Clinical Impression: Hematochezia Condition: Good Instructions: ED Hematochezia Stable Follow-Up: WILLIAM POTTER [Primary Care Provider] - Within 1 week Prescriptions: predniSONE [Deltasone] 10 mg PO [id number] #42 tab Comments: We are going to trial you on steroids and see if this improves your symptoms. You do need a colonoscopy. But you may be having colitis or inflammatory bowel disease. Your doctor will likely want to refer you for an urgent colonoscopy. Your blood counts are normal today. Return if you worsen 1. No acute intra-abdominal or pelvic process. 2. A cause for lower abdominal pain and bloody stool is not identified. 3. A 1.5 x 1.0 cm right adrenal nodule. Adrenal protocol CT or MRI is suggested for follow-up. 4. Simple left renal cyst. 5. Small umbilical hernia. There is mild stranding in the hernia sac. Discharge Date/Time: 04/12/20 20:24
[2020-04-12] MEDS ORDERED: IOVERSOL 320 100 ML VIAL IVP ONE ×2 (18:42→19:35)
[2020-04-12 18:51] LABS: BILIRUBIN,URINE NEGATIVE (NEGATIVE); GLUCOSE, URINE (UA) NEGATIVE (NEGATIVE); KETONES,URINE (UA) NEGATIVE (NEGATIVE); LEUKOCYTE ESTERASE, URINE NEGATIVE (NEGATIVE); NITRITE,URINE NEGATIVE (NEGATIVE); OCCULT BLOOD,URINE SMALL (NEGATIVE); PH,URINE 5.5 PH (5.0-7.5); PROTEIN,URINE NEGATIVE (NEGATIVE); UROBILINOGEN,URINE 0.2 (NORMAL) E.U./dL (NORMAL)
[2020-04-12 18:55] LABS: CLARITY,URINE CLEAR (CLEAR)
[2020-04-12 18:56] LABS: HCG UR QUAL NEGATIVE
[2020-04-12 19:14] LABS: RBC,URINE 0-5 /HPF (0-5)
[2020-04-12 19:15] LABS: BACTERIA,URINE None Seen /HPF (None Seen); CASTS, URINE 0-2 Hyaline Casts /LPF; SQUAMOUS EPITHELIAL CELL,UR FEW Squamous (<= Few)
[2020-04-12] MEDS ORDERED: MORPHINE 2 MG/ML CARPUJECT IVP STA (19:23)
--- NOTE | 2020-04-12 20:07 | CT Report ---
PROCEDURE: Abdomen/Pelvis W INDICATIONS: lower abd pain, blood in stool CONTRAST: IV CONTRAST: Optiray 320 ml: 100 PO CONTRAST: *NO PO CONTRAST TECHNIQUE: After the administration of oral and intravenous contrast, 5 mm thick sections acquired from the diap hragms to the symphysis. 5 mm thick coronal and sagittal reformats were acquired. For radiation dos e reduction, the following was used: automated exposure control, adjustment of mA and/or kV accordin g to patient size. COMPARISON: CT abdomen and pelvis, 07/21/2019. FINDINGS: Image quality: Excellent. ABDOMEN: Lung bases: Lung bases are clear. Heart size is normal. Solid organs: Liver and spleen are normal in size and enhancement. Subtle hyperdensity adjacent to the falciform ligament in liver is most likely secondary to focal fat. Gallbladder is normal Biliary system is non dilated. Pancreas enhances normally. There is a 1.5 x 1.0 cm right adrenal nodule. K idneys demonstrate normal size and enhancement, without hydronephrosis. There is a 2.7 cm simple ayanna earing cortical cyst left kidney. Peritoneum and bowel: Bowel loops demonstrate normal wall thickness and caliber. No free fluid or a ir. Nodes and vessels: No retroperitoneal or mesenteric adenopathy by size criteria. Aorta and inferior vena cava are normal in size. Miscellaneous: There is a small fat-containing umbilical hernia. Mild stranding in the hernia sac. PELVIS: Genitourinary: Bladder wall thickness is normal. Uterus is normal. Bilateral small ovarian cysts. N o free fluid in pelvis. Miscellaneous: No inguinal hernias or adenopathy. Bones: No suspicious bony lesions. No vertebral body compression fractures. IMPRESSION: 1. No acute intra-abdominal or pelvic process. 2. A cause for lower abdominal pain and bloody stool is not identified. 3. A 1.5 x 1.0 cm right adrenal nodule. Adrenal protocol CT or MRI is suggested for follow-up. 4. Simple left renal cyst. 5. Small umbilical hernia. There is mild stranding in the hernia sac. Reviewed by: Olayinka Wallace MD on 04/12/2020 8:06 PM PDT Approved by: Olayinka Wallace MD on 04/12/2020 8:06 PM PDT Station ID: [id number]
[2020-04-12] MEDS ORDERED: methylPREDNISolone SUCCINATE 125 MG/2 ML VIAL IVP STA (20:10)
[2020-04-12 20:21] VITALS: BP 144/85
== END 2020-04-12 20:24 | disposition home or self-care (01) ==
LOC: ED 17:38
DX: K92.1 Melena (principal); R10.31 Right lower quadrant pain; R10.32 Left lower quadrant pain; R11.0 Nausea; I10 Essential (primary) hypertension
CPT/HCPCS: 36415; 74177; 80053; 81001; 81025; 83690; 85025; 85610; 85730; 86850; 86900; 86901; 96374; 96375; 99284; A9270; Q9967; 81003; 87086

== ENCOUNTER 2020-06-05 07:52 | Outpatient (CLI) | payer OTHER ==
--- NOTE | 2020-06-05 10:43 | Ultrasound Report ---
PROCEDURE: OB First Trimester INDICATIONS: TEST POSITIVE OUTSIDE/PRIOR DATING DATA: Last menstrual period (LMP): 03/15/2020. LMP-based estimated date of delivery (JUSTINA): 12/20/2020. First dating scan (date and location): 06/05/2020. Estimated date of delivery (JUSTINA) from first dating scan: 12/22/2020. TECHNIQUE: Real-time scanning was performed of the fetus and maternal pelvic organs, with image documentation. COMPARISON: No prior OB ultrasound for this is available for review. FINDINGS: Embryo: There is a single living intrauterine gestation, with crown-rump length 4.5 cm correlating w ith a gestational age of 11 weeks 3 days, +/- 5 days. cardiac activity is observed at 159 beats per minutes. Note is made of a small subchorionic hemorrhage adjacent to the gestational sac inferio rly measuring up to 1.2 x 1.3 x 2.2 cm. Measurement variability in dating: +/- 4 weeks by LMP, +/- 7 days by mean sac diameter (use before 6 weeks gestation if crown-rump length not able to be measured), +/- 5 days by crown-rump length (6-12 weeks gestation). Maternal organs: Ovaries normal considering gestational status, apparent right ovarian corpus luteum cyst.. Limited images through the kidneys demonstrate no hydronephrosis. IMPRESSION: Single living intrauterine gestation with small adjacent subchorionic hemorrhage. heart rate is observed, right-sided corpus luteum cyst noted at the ovary. The delivery date is projected to be ce ntered on 12/22/2020, +/- 5 days. Follow-up anatomic survey at approximately 20 weeks gestation i s recommended. Reviewed by: Arcenio Patten MD on 06/05/2020 10:42 AM PDT Approved by: Arcenio Patten MD on 06/05/2020 10:42 AM PDT Station ID: [id number]
== END 2020-06-05 07:53 | disposition home or self-care (01) ==
LOC: DI 07:52
PROVIDERS: ATTEND Obstetrics & Gynecology
DX: O34.81 Maternal care for other abnormalities of pelvic organs, first trimester (principal); N83.11 Corpus luteum cyst of right ovary; Z3A.11 11 weeks gestation of pregnancy; Z32.01 Encounter for pregnancy test, result positive
CPT/HCPCS: 76801

== ENCOUNTER 2020-06-09 07:00 | Outpatient (CLI) | payer OTHER ==
[2020-06-09 16:13] LABS: BILIRUBIN,URINE NEGATIVE (NEGATIVE); GLUCOSE, URINE (UA) NEGATIVE (NEGATIVE); KETONES,URINE (UA) NEGATIVE (NEGATIVE); LEUKOCYTE ESTERASE, URINE SMALL (NEGATIVE); NITRITE,URINE NEGATIVE (NEGATIVE); OCCULT BLOOD,URINE SMALL (NEGATIVE); PH,URINE 5.5 PH (5.0-7.5); PROTEIN,URINE NEGATIVE (NEGATIVE); UROBILINOGEN,URINE 0.2 (NORMAL) E.U./dL (NORMAL)
[2020-06-09 16:38] LABS: CLARITY,URINE CLOUDY (CLEAR)
[2020-06-09 16:39] LABS: AMORPHOUS SEDIMENT,UR Marked /LPF; BACTERIA,URINE Rare /HPF (None Seen); RBC,URINE 0-5 /HPF (0-5); SQUAMOUS EPITHELIAL CELL,UR FEW Squamous (<= Few)
== END 2020-06-09 23:59 | disposition home or self-care (01) ==
LOC: LAB.R 07:00
PROVIDERS: ATTEND Obstetrics & Gynecology
DX: O09.529 Supervision of elderly multigravida, unspecified trimester (principal)
CPT/HCPCS: 81001; 87086

== ENCOUNTER 2020-06-17 15:43 | Emergency (ER) | payer OTHER ==
[2020-06-17 16:22] LABS: BASOPHILS % (AUTO) 0.3 %; EOSINOPHILS % (AUTO) 0.1 %; HGB - HEMOGLOBIN 14.9 g/dL (12.0-16.0); LYMPHOCYTES # (AUTO) 2.1 10^3/uL (1.5-3.5); LYMPHOCYTES % (AUTO) 17.7 %; MEAN CORPUSCULAR HEMOGLOBIN 25.5 pg (27.0-31.0); MEAN CORPUSCULAR HGB CONC 33.1 g/dL (32.0-36.0); MEAN CORPUSCULAR VOLUME 77.1 fL (81.0-99.0); MEAN PLATELET VOLUME 9.5 fL (7.9-10.8); MONOCYTES # (AUTO) 0.5 10^3/uL (0.0-1.0); MONOCYTES % (AUTO) 4.1 %; NEUTROPHILS # (AUTO) 9.2 10^3/uL (1.5-6.6); NEUTROPHILS % (AUTO) 77.3 %; PLT - PLATELET COUNT 296 10^3/uL (130-450); RED BLOOD COUNT 5.84 10^6/uL (4.20-5.40); RED CELL DISTRIBUTION WIDTH 14.3 % (12.0-15.0); WHITE BLOOD COUNT 11.8 x10^3/uL (4.8-10.8)
[2020-06-17] MEDS ORDERED: ONDANSETRON 4 MG/2 ML VIAL ONE (16:26)
[2020-06-17] MEDS ORDERED: ONDANSETRON 4 MG/2 ML VIAL IM STA (16:31)
[2020-06-17 16:33] LABS: ALBUMIN 3.9 g/dL (3.2-5.5); ALBUMIN/GLOBULIN RATIO 1.1 (1.0-2.2); BILIRUBIN,TOTAL 0.7 mg/dL (0.2-1.0); CALCIUM 9.4 mg/dL (8.5-10.3); CREATININE 0.5 mg/dL (0.4-1.0); TOTAL PROTEIN 7.5 g/dL (6.7-8.2)
[2020-06-17] MEDS ORDERED: ONDANSETRON 4 MG/2 ML VIAL IVP STA ×2 (16:35→17:41)
[2020-06-17 17:00] LABS: BILIRUBIN,URINE NEGATIVE (NEGATIVE); GLUCOSE, URINE (UA) NEGATIVE (NEGATIVE); KETONES,URINE (UA) >=80 mg/dL (NEGATIVE); LEUKOCYTE ESTERASE, URINE NEGATIVE (NEGATIVE); NITRITE,URINE NEGATIVE (NEGATIVE); OCCULT BLOOD,URINE NEGATIVE (NEGATIVE); PROTEIN,URINE NEGATIVE (NEGATIVE); UROBILINOGEN,URINE 0.2 (NORMAL) E.U./dL (NORMAL)
[2020-06-17 17:02] LABS: CLARITY,URINE CLEAR (CLEAR)
--- NOTE | 2020-06-17 17:06 | ED Physician Documentation ---
PD HPI NVD - Stated complaint Stated Complaint: NV/LIGHT HEADED - Chief complaint Chief Complaint: Abd Pain - History obtained from History obtained from: Patient - History of Present Illness Timing - onset: Today Timing - duration: Hours Timing - details: Gradual onset, Still present Associated symptoms: Near syncope / syncope Contributing factors: Other () Improved by: Vomiting Similar symptoms before: Diagnosis (morning sickness) Recently seen: Clinic - Additonal information Additional information: 4 para 4 with 1 set of twins is 13 weeks and this morning at work she developed some nausea vomiting and lightheadedness. She eventually had to go home and was not able to orally hydrate with Zofran. She is come to the emergency department today with lightheadedness and dizziness nausea and vomiting 13 weeks Review of Systems Constitutional: denies: Fever Eyes: denies: Decreased vision Ears: denies: Ear pain Nose: denies: Congestion Throat: denies: Sore throat Cardiac: denies: Chest pain / pressure, Palpitations Respiratory: denies: Dyspnea, Cough GI: reports: Nausea, Vomiting : denies: Dysuria, Frequency Skin: denies: Rash Musculoskeletal: denies: Neck pain, Back pain, Extremity pain Neurologic: reports: Generalized weakness. 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: Ovarian cysts - Past Surgical History Past Surgical History: Yes /BUNDLE PERSON: section - Present Medications Home Medications: Ambulatory Orders Medication Instructions Recorded Confirmed Levothyroxine Sodium [Synthroid] 175 mcg ORAL DAILY 06/19/17 04/12/20 predniSONE [Deltasone] 10 mg PO [id number] #42 tab 04/12/20 - Allergies Allergies/Adverse Reactions: Allergies Allergy/AdvReac Type Severity Reaction Status Date / Time No Known Drug Allergies Allergy Verified 06/17/20 16:00 - Social History Does the pt smoke?: No Smoking Status: Never smoker Does the pt drink ETOH?: No Does the pt have substance abuse?: No - Immunizations Immunizations are current?: Yes - POLST Patient has POLST: No PD ED PE NORMAL - Vitals Vital signs reviewed: Yes (hypertensive ) - General General: Alert and oriented X 3, No acute distress, Well developed/nourished - HEENT HEENT: Atraumatic, PERRL, EOMI - Neck Neck: Supple, no meningeal sign, No bony TTP - Cardiac Cardiac: RRR, No murmur - Respiratory Respiratory: No respiratory distress, Clear bilaterally - Abdomen Abdomen: Normal bowel sounds, Soft, Non tender, Non distended, No organomegaly - Back Back: No CVA TTP, No spinal TTP - Derm Derm: Normal color, Warm and dry, No rash - Extremities Extremities: No deformity, No edema, No calf tenderness / cord - Neuro Neuro: Alert and oriented X 3, director learning 2-12 intact Eye Opening: Spontaneous Motor: Obeys Commands Verbal: Oriented GCS Score: 15 - Psych Psych: Normal mood, Normal affect Results - Vitals Vitals: Vital Signs - 24 hr 06/17/20 15:55 Temperature 36.5 C Heart Rate 71 Respiratory 16 Rate Blood Pressure 143/89 H O2 Saturation 97 Oxygen O2 Source Room air - Labs Labs: Laboratory Tests 06/17/20 06/17/20 06/17/20 16:15 16:15 16:55 WBC 11.8 H RBC 5.84 H Hgb 14.9 Hct 45.0 MCV 77.1 L MCH 25.5 L MCHC 33.1 RDW 14.3 Plt Count 296 MPV 9.5 Neut # (Auto) 9.2 H Lymph # (Auto) 2.1 [place] # (Auto) 0.5 Eos # (Auto) 0.0 Baso # (Auto) 0.0 Absolute Nucleated RBC 0.00 Nucleated RBC % 0.0 Sodium 135 Potassium 3.7 Chloride 101 Carbon Dioxide 25 Anion Gap 9.0 BUN 7 Creatinine 0.5 Estimated GFR (MDRD) 140 Glucose 98 Calcium 9.4 Total Bilirubin 0.7 AST 14 ALT 19 Alkaline Phosphatase 66 Total Protein 7.5 Albumin 3.9 Globulin 3.6 Albumin/Globulin Ratio 1.1 Lipase 35 Urine Color YELLOW Urine Clarity CLEAR Urine pH 7.0 Ur Specific [place] 1.020 Urine Protein NEGATIVE Urine Glucose (UA) NEGATIVE Urine Ketones >=80 H Urine Occult Blood NEGATIVE Urine Nitrite NEGATIVE Urine Bilirubin NEGATIVE Urine Urobilinogen 0.2 (NORMAL) Ur Leukocyte Esterase NEGATIVE Ur Microscopic Review NOT INDICATED Urine Culture Comments NOT INDICATED Procedures - Bedside sono Bedside sono by EMP: With use of bedside ultrasound the fetus is imaged there is heart rate of 144 and the crown-rump length gives a gestational age of 12 weeks 6 days. - IVC sono (time) 1714 Bedside IVC sono: IVC measures (cm) (0.98), IVC collapsed c insp (cm) (complete), Dehydration (est 2 liter deficit) PD MEDICAL DECISION MAKING - ED course Complexity details: reviewed old records, reviewed results, re-evaluated patient, considered differential, d/w patient, d/w family ED course: 34-year-old female 13 weeks with nausea and vomiting has not been able to hold fluids down with Zofran given orally. An IV is begun she is given saline intravenously and has improvement with Zofran. Departure - Departure Disposition: 01 Home, Self Care Clinical Impression: Morning sickness, Dehydration Condition: Stable Instructions: ED Dehydration, ED Preg Morning Sickness Follow-Up: Yon Kumari MD [Emergency Provider] -
[2020-06-17] MEDS ORDERED: SODIUM CHLORIDE 0.9% 1,000 ML IV STA (17:19)
[2020-06-17 19:39] VITALS: BP 138/78
== END 2020-06-17 19:30 | disposition home or self-care (01) ==
LOC: ED 15:43
DX: O21.1 Hyperemesis gravidarum with metabolic disturbance (principal); E86.0 Dehydration; O10.911 Unspecified pre-existing hypertension complicating pregnancy, first trimester; Z3A.13 13 weeks gestation of pregnancy
CPT/HCPCS: 36415; 80053; 81001; 81003; 81025; 83690; 85025; 87086; 96361; 96374; 96376; 99284

== ENCOUNTER 2020-07-09 11:52 | Outpatient (CLI) | payer OTHER ==
[2020-07-09 12:22] LABS: BASOPHILS # (AUTO) 0.1 10^3/uL (0.0-0.1); BASOPHILS % (AUTO) 0.4 %; EOSINOPHILS % (AUTO) 0.2 %; HGB - HEMOGLOBIN 13.8 g/dL (12.0-16.0); LYMPHOCYTES # (AUTO) 2.2 10^3/uL (1.5-3.5); LYMPHOCYTES % (AUTO) 17.6 %; MEAN CORPUSCULAR HGB CONC 32.2 g/dL (32.0-36.0); MEAN CORPUSCULAR VOLUME 77.7 fL (81.0-99.0); MEAN PLATELET VOLUME 9.9 fL (7.9-10.8); MONOCYTES # (AUTO) 0.5 10^3/uL (0.0-1.0); MONOCYTES % (AUTO) 4.3 %; NEUTROPHILS # (AUTO) 9.4 10^3/uL (1.5-6.6); NEUTROPHILS % (AUTO) 76.9 %; PLT - PLATELET COUNT 289 10^3/uL (130-450); RED BLOOD COUNT 5.51 10^6/uL (4.20-5.40); RED CELL DISTRIBUTION WIDTH 13.8 % (12.0-15.0); WHITE BLOOD COUNT 12.3 x10^3/uL (4.8-10.8)
[2020-07-09 12:51] LABS: THYROID STIMULATING HORMONE 0.19 uIU/mL (0.34-5.60)
[2020-07-09 12:52] LABS: FREE T4 (FREE THYROXINE) 1.07 ng/dL (0.58-1.64)
[2020-07-10 12:21] LABS: HIV AG/AB 4TH GEN NON-REACTIVE (NON-REACTIVE)
[2020-07-10 13:22] LABS: HEPATITIS B SURFACE ANTIGEN NON-REACTIVE (NON-REACTIVE); HEPATITIS C ANTIBODY NON-REACTIVE (NON-REACTIVE)
== END 2020-07-09 11:53 | disposition home or self-care (01) ==
LOC: LAB 11:52
PROVIDERS: ATTEND Obstetrics & Gynecology
DX: Z36.8A Encounter for antenatal screening for other genetic defects (principal); O09.529 Supervision of elderly multigravida, unspecified trimester; O99.280 Endocrine, nutritional and metabolic diseases complicating pregnancy, unspecified trimester; E03.9 Hypothyroidism, unspecified; Z3A.00 Weeks of gestation of pregnancy not specified
CPT/HCPCS: 36415; 81511; 81599; 84439; 84443; 85025; 86762; 86803; 86850; 86900; 86901; 87340; 87389; 87491; 87591; 87661

== ENCOUNTER 2020-07-28 08:00 | Outpatient (CLI) | payer OTHER ==
[2020-07-28 15:51] LABS: BILIRUBIN,URINE NEGATIVE (NEGATIVE); GLUCOSE, URINE (UA) NEGATIVE (NEGATIVE); KETONES,URINE (UA) NEGATIVE (NEGATIVE); LEUKOCYTE ESTERASE, URINE TRACE (NEGATIVE); NITRITE,URINE NEGATIVE (NEGATIVE); OCCULT BLOOD,URINE TRACE-INTA (NEGATIVE); PH,URINE 5.5 PH (5.0-7.5); PROTEIN,URINE NEGATIVE (NEGATIVE); UROBILINOGEN,URINE 0.2 (NORMAL) E.U./dL (NORMAL)
[2020-07-28 16:04] LABS: BACTERIA,URINE None Seen /HPF (None Seen); CLARITY,URINE CLOUDY (CLEAR); RBC,URINE 0-5 /HPF (0-5); SQUAMOUS EPITHELIAL CELL,UR MOD Squamous (<= Few)
== END 2020-07-28 23:59 | disposition home or self-care (01) ==
LOC: LAB.R 08:00
PROVIDERS: ATTEND Nurse Practitioner Obstetrics & Gynecology
DX: N30.01 Acute cystitis with hematuria (principal)
CPT/HCPCS: 81001; 87086

== ENCOUNTER 2020-08-03 06:51 | Outpatient (CLI) | payer OTHER ==
--- NOTE | 2020-08-03 16:20 | Ultrasound Report ---
PROCEDURE: OB Detailed Eval INDICATIONS: ATENATAL SCREENING FOR OTHER GENETIC DEFECTS OUTSIDE/PRIOR DATING DATA: Last menstrual period (LMP): 03/15/20. LMP-based estimated date of delivery (JUSTINA): 12/20/20. First dating scan (date and location): 06/05/20. Estimated date of delivery (JUSTINA) from first dating scan: 12/22/20. TECHNIQUE: Real-time scanning was performed of the fetus, with image documentation and biometric measurements. COMPARISON: 06/05/20 FINDINGS: General: A single living intrauterine gestation is present. Presentation: Variable Placenta: Placental position is anterior, without previa. Amniotic fluid index: 10.8 cm, 13.3rd percentile for gestational age. Largest pocket 3.2 cm. heart rate: 132 beats per minute. Maternal cervical canal: 5.5 cm long; normal length is 2.5 cm or more. biometrics: Biparietal diameter: 4.8 cm 20 weeks 3 day Head circumference: 17.3 cm 19 weeks 6 days Abdominal circumference: 16.2 cm 21 weeks 2 days Femur length: 3.0 cm 19 weeks 3 days Estimated gestational age from initial scan: 19 weeks 6 days Composite gestational age from present scan: 20 weeks 0 days Estimated weight and percentile: 348 grams 74th percentile Measurement variability in biometric dating: +/- 10 days from 12-20 weeks gestation, +/- 2 weeks from 20-30 weeks gestation, +/- 3 weeks at 30 weeks gestation or later. Anatomic survey: Neuro: Ventricles are normal at less than 10 mm. Cisterna magna is normal at 3-11 mm. Cerebellum i s normal in size and morphology. Nuchal skin fold: Normal at less than 6 mm between 14 and 20 weeks gestational age. Face: Nose and lips, facial profile are normal. Spine: No evidence for spina bifida. Heart: 4-chambered heart is present, with normal ventricular outflow tracts. Diaphragm: Diaphragm is intact. Stomach: Left-sided stomach is present. Kidneys: No hydronephrosis. Normal is less than 5 mm in 2nd trimester, less than 7 mm in 3rd trimester. Cord: 3 vessel cord has orthotopic insertion. Bladder: Normal in size. Extremities: All 4 extremities are visualized. IMPRESSION: 1. Single live intrauterine with ultrasound gestational age of 20 weeks 0 days, compared to 19 weeks 6 days from initial ultrasound. Ultrasound JUSTINA is unchanged at 12/22/2020. 2. Anatomy is within normal limits. Reviewed by: Keke Torres MD on 08/03/2020 12:55 PM PDT Approved by: Keke Torres MD on 08/03/2020 12:55 PM PDT Station ID: [id number]
== END 2020-08-03 06:52 | disposition home or self-care (01) ==
LOC: DI 06:51
PROVIDERS: ATTEND Obstetrics & Gynecology
DX: Z36.8A Encounter for antenatal screening for other genetic defects (principal)
CPT/HCPCS: 76811

== ENCOUNTER 2020-08-06 10:59 | Outpatient (CLI) | payer OTHER | END 2020-08-06 11:00 | disposition home or self-care (01) | LOC: LAB 10:59 | PROVIDERS: ATTEND Obstetrics & Gynecology | DX: O09.529 Supervision of elderly multigravida, unspecified trimester (principal); Z36.8A Encounter for antenatal screening for other genetic defects; Z3A.00 Weeks of gestation of pregnancy not specified | CPT/HCPCS: 36415; 81599; 86592 ==

== ENCOUNTER 2020-08-17 16:21 | Outpatient (CLI) | payer OTHER ==
[2020-08-17 17:19] LABS: BILIRUBIN,URINE NEGATIVE (NEGATIVE); GLUCOSE, URINE (UA) NEGATIVE (NEGATIVE); KETONES,URINE (UA) NEGATIVE (NEGATIVE); LEUKOCYTE ESTERASE, URINE NEGATIVE (NEGATIVE); NITRITE,URINE NEGATIVE (NEGATIVE); OCCULT BLOOD,URINE TRACE-LYSE (NEGATIVE); PROTEIN,URINE NEGATIVE (NEGATIVE); UROBILINOGEN,URINE 0.2 (NORMAL) E.U./dL (NORMAL)
[2020-08-17 17:20] LABS: CLARITY,URINE CLEAR (CLEAR)
[2020-08-17] MEDS ORDERED: TERBUTALINE 1 MG/ML VIAL SUBQ ONE ×2 (17:21→17:29)
[2020-08-17 17:26] VITALS: BP 124/67
[2020-08-17 17:28] LABS: BACTERIA,URINE Few /HPF (None Seen); RBC,URINE 0-5 /HPF (0-5); SQUAMOUS EPITHELIAL CELL,UR MOD Squamous (<= Few)
[2020-08-17] MEDS ORDERED: SODIUM CHLORIDE 0.9% 1,000 ML IV ONE ×2 (17:35→17:38)
--- NOTE | 2020-08-17 19:24 | PROVIDER PROGRESS NOTE ---
- HPI Chief Complaint: Other (Patient is a 34 yo at 22+1 wga here with contractions. Reports that she has had contractions for her prior . She has had been having regular painful contractions. No LOF or VB. Endorses FM.) Current : Current EDU 12/20/20 Gestation 22 Weeks and 1 Days 4 Para 3 Vital Signs Temperature 98.1 F 08/17/20 17:06 Heart Rate 73 08/17/20 17:06 Respiratory Rate 18 08/17/20 17:06 Blood Pressure 124/67 08/17/20 17:06 O2 Saturation 98 08/17/20 17:06 Temperature 98.1 F 08/17/20 17:06 Heart Rate 73 08/17/20 17:06 Respiratory Rate 18 08/17/20 17:06 Blood Pressure 124/67 08/17/20 17:06 O2 Saturation 98 08/17/20 17:06 - Exam GEN: NAD HEENT: NCAT CV: RR RESP: nl effort ABD: gravid, S&NT NEURO: A&O PSYCH: appropriate affect SVE: Closed/long/high per RN exam EFM 135 mod anita 10x10 accels no decels--> AGA TOCO: Q8 min TACL 5.6 cm FFN neg UA wnl - Procedures Service Date of procedure: 08/17/20 - Plan Plan: 34 yo at 22+2 wga here with contractions -Received terbutaline 25 mcg SCx1 -Received 1L fluid bolus -FFN neg -TACL 5.6 cm Reassuring exam for PTL CTX decreased with IVF and terb Has hx of ctx through prior DC to home Warning sings reviewed.
--- NOTE | 2020-08-17 19:39 | Ultrasound Report ---
PROCEDURE: OB Limited INDICATIONS: contractions. JUSTINA 12/20/2020 OUTSIDE/PRIOR DATING DATA: Last menstrual period (LMP): 03/15/2020. LMP-based estimated date of delivery (JUSTINA): 12/20/2020. First dating scan (date and location): 06/05/2020. Estimated date of delivery (JUSTINA) from first dating scan: 12/22/2020. TECHNIQUE: Real-time scanning was performed of the fetus, with image documentation. Endovaginal scanning: Not performed. COMPARISON: Ultrasound 08/03/2020 FINDINGS: A single living intrauterine gestation is present. Presentation: Variable Placenta: Placental position is anterior, without previa. Placental linares is noted towards the fundus . Amniotic fluid index: 20.5 cm cm, within normal limits for gestational age. heart rate: 136 beats per minutes. Maternal cervical canal: 5.7 cm long and closed; normal length is 2.5 cm or more. Estimated gestational age from initial scan: Not evaluated. IMPRESSION: 1. Single live intrauterine . heart rate 136 bpm. 2. Cervical length 5.7 cm. Internal cervical os appears closed. Reviewed by: Asad Fernández MD on 08/17/2020 7:38 PM PDT Approved by: Asad Fernández MD on 08/17/2020 7:38 PM PDT Station ID: [id number]
[2020-08-17 22:37] LABS: TRICHOMONAS VAGINALIS DNA NEGATIVE (NEGATIVE)
== END 2020-08-17 19:40 | disposition home or self-care (01) ==
LOC: WFO 16:21 → FBP 16:23 → WFO 19:40
PROVIDERS: ATTEND Obstetrics & Gynecology
DX: O60.02 Preterm labor without delivery, second trimester (principal); Z3A.22 22 weeks gestation of pregnancy
CPT/HCPCS: 76815; 81001; 82731; 87086; 87491; 87591; 87661; 87797; 96372; 99214

== ENCOUNTER 2020-09-03 08:00 | Outpatient (CLI) | payer OTHER | END 2020-09-03 08:01 | disposition home or self-care (01) | LOC: LAB.R 08:00 | PROVIDERS: ATTEND Obstetrics & Gynecology | DX: O26.03 Excessive weight gain in pregnancy, third trimester (principal) | CPT/HCPCS: 82731 ==

== ENCOUNTER 2020-09-15 09:09 | Outpatient (CLI) | payer OTHER ==
[2020-09-15 10:39] LABS: HGB - HEMOGLOBIN 12.6 g/dL (12.0-16.0); MEAN CORPUSCULAR HEMOGLOBIN 24.8 pg (27.0-31.0); MEAN CORPUSCULAR VOLUME 77.6 fL (81.0-99.0); MEAN PLATELET VOLUME 10.2 fL (7.9-10.8); RED BLOOD COUNT 5.08 10^6/uL (4.20-5.40); WHITE BLOOD COUNT 10.2 x10^3/uL (4.8-10.8)
== END 2020-09-15 09:10 | disposition home or self-care (01) ==
LOC: LAB 09:09
PROVIDERS: ATTEND Obstetrics & Gynecology
DX: O09.529 Supervision of elderly multigravida, unspecified trimester (principal); O34.211 Maternal care for low transverse scar from previous cesarean delivery; Z3A.00 Weeks of gestation of pregnancy not specified
CPT/HCPCS: 36415; 81599; 82731; 82950; 85027; 86592

== ENCOUNTER 2020-09-22 07:36 | Outpatient (CLI) | payer OTHER ==
[2020-09-22 08:44] LABS: THYROID STIMULATING HORMONE 2.47 uIU/mL (0.34-5.60)
[2020-09-22 08:46] LABS: FREE T4 (FREE THYROXINE) 0.58 ng/dL (0.58-1.64)
== END 2020-09-22 07:37 | disposition home or self-care (01) ==
LOC: LAB 07:36
PROVIDERS: ATTEND Obstetrics & Gynecology
DX: O09.529 Supervision of elderly multigravida, unspecified trimester (principal); E03.9 Hypothyroidism, unspecified
CPT/HCPCS: 36415; 82951; 82952; 84439; 84443

== ENCOUNTER 2020-09-24 14:35 | Outpatient (CLI) | payer OTHER ==
[2020-09-24 15:15] LABS: BASOPHILS % (AUTO) 0.3 %; EOSINOPHILS # (AUTO) 0.1 10^3/uL (0.0-0.7); EOSINOPHILS % (AUTO) 0.5 %; HGB - HEMOGLOBIN 12.2 g/dL (12.0-16.0); LYMPHOCYTES # (AUTO) 2.1 10^3/uL (1.5-3.5); LYMPHOCYTES % (AUTO) 18.9 %; MEAN CORPUSCULAR HEMOGLOBIN 24.7 pg (27.0-31.0); MEAN CORPUSCULAR HGB CONC 32.3 g/dL (32.0-36.0); MEAN CORPUSCULAR VOLUME 76.5 fL (81.0-99.0); MEAN PLATELET VOLUME 10.1 fL (7.9-10.8); MONOCYTES # (AUTO) 0.7 10^3/uL (0.0-1.0); MONOCYTES % (AUTO) 6.7 %; PLT - PLATELET COUNT 305 10^3/uL (130-450); RED BLOOD COUNT 4.94 10^6/uL (4.20-5.40); RED CELL DISTRIBUTION WIDTH 14.2 % (12.0-15.0); WHITE BLOOD COUNT 10.9 x10^3/uL (4.8-10.8)
[2020-09-24 15:28] VITALS: BP 117/65
[2020-09-24 15:28] LABS: ALBUMIN 2.9 g/dL (3.2-5.5); ALBUMIN/GLOBULIN RATIO 0.9 (1.0-2.2); BILIRUBIN,TOTAL 0.3 mg/dL (0.2-1.0); CALCIUM 8.8 mg/dL (8.5-10.3); CREATININE 0.5 mg/dL (0.4-1.0); TOTAL PROTEIN 6.2 g/dL (6.7-8.2); URIC ACID 4.6 mg/dL (2.6-7.2)
[2020-09-24 16:35] LABS: CREATININE,URINE 101.5 mg/dL; PROTEIN/CREATININE RATIO,URINE 0.1 (<=0.2)
--- NOTE | 2020-09-24 16:38 | PROVIDER PROGRESS NOTE ---
- HPI Current : Current EDU 12/20/20 Gestation 27 Weeks and 4 Days Vital Signs Temperature 98.4 F 09/24/20 14:51 Heart Rate 77 09/24/20 14:51 Respiratory Rate 17 09/24/20 14:51 Blood Pressure 118/62 09/24/20 14:51 O2 Saturation 99 09/24/20 14:51 Temperature 98.4 F 09/24/20 14:51 Heart Rate 80 09/24/20 15:03 Respiratory Rate 17 09/24/20 14:51 Blood Pressure 117/65 09/24/20 15:20 O2 Saturation 99 09/24/20 14:51 - Exam CC: sent from clinic due to hx of elevated BP HPI: this weekend had swelling in her right hand that was unusual for her. Took her BPs and was getting 160/90s even at rest. Usually with her home cuff she gets 110-120s/60-80. Elevated BP persisted for about 24h and then spontaneously improved. No HERNÁNDEZ, visual changes, or upper abd pain. No worsening of edema other than noted above. O: BPs all normal here 110s/70s average Alert, smiling, NAD Abd soft, nt/nd Fundus nontender Trace LE edema 2+ DTR Category 1 NST [place] neg Normal plts, AST, ALT, Cr. P:C 0.1 A/P: 34yo at 27w4d with elevated BP at home and normal BP in clinic and here on triage. Dx = elevated BP without hypertension. No preeclampsia. History of preeclampsia requiring delivery at 34w with her di/di twins but no preeclampsia with her two singletons. Pt has a BP cuff at home that typically runs normal so I suspect that it is working accurately. Did not have sx. PIH labs are normal. --Discussed preeclampsia symptoms and RTC immediately PRN sx --RTC PRN persistent BP 140/90s. Immediately PRN 160/110. --Log BP daily at home. - Procedures NST Procedure: NST Procedure Start Date 09/24/20 Start Time 15:20 Stop Time 15:42 Vibroacoustic Stimulation Used No
== END 2020-09-24 17:00 | disposition home or self-care (01) ==
LOC: WFO 14:35 → FBP 14:37 → WFO 17:00
PROVIDERS: ATTEND Obstetrics & Gynecology
DX: O16.2 Unspecified maternal hypertension, second trimester (principal); Z3A.27 27 weeks gestation of pregnancy
CPT/HCPCS: 36415; 59025; 80053; 82570; 84156; 84550; 85025

== ENCOUNTER 2020-10-27 08:00 | Outpatient (CLI) | payer OTHER | END 2020-10-27 23:59 | disposition home or self-care (01) | LOC: LAB.R 08:00 | PROVIDERS: ATTEND Obstetrics & Gynecology | DX: O09.529 Supervision of elderly multigravida, unspecified trimester (principal); Z87.59 Personal history of other complications of pregnancy, childbirth and the puerperium | CPT/HCPCS: 82731 ==

== ENCOUNTER 2020-11-12 15:13 | Outpatient (CLI) | payer OTHER ==
--- NOTE | 2020-11-13 11:22 | Ultrasound Report ---
PROCEDURE: OB F/U or Repeat INDICATIONS: EXCESSIVE WEIGHT GAIN IN OUTSIDE/PRIOR DATING DATA: Last menstrual period (LMP): 03/15/2020. LMP-based estimated date of delivery (JUSTINA): 12/20/2020. First dating scan (date and location): 06/05/2020. Estimated date of delivery (JUSTINA) from first dating scan: 12/22/2020. Provider's dated JUSTINA 12/20/2020. TECHNIQUE: Real-time scanning was performed of the fetus, with image documentation and biometric measurements. Endovaginal scanning: Not performed. COMPARISON: OB ultrasound 08/17/2020. FINDINGS: General: A single living intrauterine gestation is present. Presentation: Breech. Placenta: Placental position is anterior, without previa. Amniotic fluid index: 18.8 cm, 76 percentile and within normal limits for gestational age. (Largest pocket 7.3 cm) heart rate: 160 beats per minute. Maternal cervical canal: 5.1 cm long; normal length is 2.5 cm or more. biometrics: Biparietal diameter: 9.5 cm, 39 weeks 0 days Head circumference: 33.98 cm, 39 weeks 1 day Abdominal circumference: 34.98 cm, 38 weeks 6 days Femur length: 6.5 cm, 33 weeks 5 days Estimated gestational age from initial scan: 34 weeks 4 days Composite gestational age from present scan: 37 weeks 5 days Estimated weight and percentile: 3290 g, 99.3 percentile. Measurement variability in biometric dating: +/- 10 days from 12-20 weeks gestation, +/- 2 weeks from 20-30 weeks gestation, +/- 3 weeks at 30 weeks gestation or more. IMPRESSION: 1. Rothman living intrauterine at 37 weeks 5 days based on today's ultrasound. This is di scordant with the prior dating +/- 3 weeks, by 1 day. Estimated weight 3290 g and 99th percenti le. Fetus is in the breech position. 2. Normal placenta. Amniotic fluid is within normal limits.. Reviewed by: Sourav Crow MD on 11/13/2020 11:21 AM [facility] Approved by: Sourav Crow MD on 11/13/2020 11:21 AM PST Station ID: [id number]
== END 2020-11-12 15:14 | disposition home or self-care (01) ==
LOC: DI 15:13
PROVIDERS: ATTEND Obstetrics & Gynecology
DX: O26.03 Excessive weight gain in pregnancy, third trimester (principal); O09.523 Supervision of elderly multigravida, third trimester; Z3A.37 37 weeks gestation of pregnancy

== ENCOUNTER 2020-11-24 10:20 | Outpatient (CLI) | payer OTHER ==
[2020-11-24 10:38] LABS: BASOPHILS % (AUTO) 0.3 %; EOSINOPHILS # (AUTO) 0.1 10^3/uL (0.0-0.7); EOSINOPHILS % (AUTO) 0.6 %; HGB - HEMOGLOBIN 11.8 g/dL (12.0-16.0); LYMPHOCYTES # (AUTO) 2.1 10^3/uL (1.5-3.5); LYMPHOCYTES % (AUTO) 19.8 %; MEAN CORPUSCULAR HGB CONC 30.7 g/dL (32.0-36.0); MONOCYTES # (AUTO) 0.8 10^3/uL (0.0-1.0); MONOCYTES % (AUTO) 7.1 %; NEUTROPHILS # (AUTO) 7.6 10^3/uL (1.5-6.6); NEUTROPHILS % (AUTO) 71.2 %; PLT - PLATELET COUNT 290 10^3/uL (130-450); RED BLOOD COUNT 5.12 10^6/uL (4.20-5.40); RED CELL DISTRIBUTION WIDTH 14.6 % (12.0-15.0); WHITE BLOOD COUNT 10.6 x10^3/uL (4.8-10.8)
[2020-11-24 11:03] LABS: URIC ACID 4.9 mg/dL (2.6-7.2)
[2020-11-24 11:27] LABS: CREATININE 0.6 mg/dL (0.4-1.0)
[2020-11-24 11:36] LABS: CREATININE,URINE 112.2 mg/dL; PROTEIN/CREATININE RATIO,URINE 0.1 (<=0.2)
[2020-11-24 12:04] LABS: ALBUMIN 2.8 g/dL (3.2-5.5); ALBUMIN/GLOBULIN RATIO 0.8 (1.0-2.2); ALKALINE PHOSPHATASE 133 IU/L (42-121); ALT ALANINE AMINOTRANSFERASE 14 IU/L (10-60); AST ASPARTATE AMINOTRANSFERASE 14 IU/L (10-42); BILIRUBIN,TOTAL < 0.2 mg/dL (0.2-1.0); BUN - BLOOD UREA NITROGEN 6 mg/dL (6-20); CALCIUM 9.6 mg/dL (8.5-10.3); CARBON DIOXIDE - CO2 26 mmol/L (21-32); CHLORIDE 101 mmol/L (101-111); CREATININE 0.5 mg/dL (0.4-1.0); GLUCOSE 83 mg/dL (70-100); TOTAL PROTEIN 6.5 g/dL (6.7-8.2)
[2020-11-24 13:08] VITALS: BP 142/79
--- NOTE | 2020-11-29 22:41 | PROVIDER PROGRESS NOTE ---
- HPI Chief Complaint: Other (Patient is a 35 yo at 36+2 here for PIH evaluation. Patient was seen in clinic and had mild range BPS. No symptoms. Sent to triage for assessment and pre-eclampsia evaluation. +FM. Denies LOF/VB/CTX) Current : Current EDU 12/20/20 Gestation 36 Weeks and 2 Days 4 Para 3 Vital Signs Temperature 98.2 F 11/24/20 10:36 Heart Rate 96 11/24/20 10:36 Respiratory Rate 18 11/24/20 10:36 Blood Pressure 147/93 H 11/24/20 10:36 O2 Saturation 99 11/24/20 10:36 Temperature 98.2 F 11/24/20 10:36 Heart Rate 96 11/24/20 10:36 Respiratory Rate 18 11/24/20 10:36 Blood Pressure 142/79 H 11/24/20 13:08 O2 Saturation 99 11/24/20 10:36 - Exam Patient was seen in clinic by Dr. Monk Per his assessment: GEN: NAD CV: RR RESP: nl effort ABD: gravid, S&NT/ND.No RUQ tenderness PSYCH: Appopriate affect NEURO: A&O - Procedures OB Procedure Performed: NST Diagnosis/Indication for NST: Gestational Hypertension NST Procedure: NST Procedure Start Date 11/24/20 Start Time 10:32 Stop Time 10:56 Vibroacoustic Stimulation Used No Patient States Movement Yes EFM: 130 mod anita 15x15 accels no decels TOCO: Quiet Service Date of procedure: 11/24/20 Procedure Details: Cat I tracing Findings: P:C 0.1 HCT 38.4 PLT 290 Cr 0.5 ALT 14 AST 14 Uric acid 4.9 GBS pending Lab studies do not support dx of pre-eclampsia Review of records shows an elevated BP in mild range in the first trimester Technically, CHTN vs new dx of GHTN - Plan Plan: Patient was discharged to home with warning signs Will defer to Dr. Monk for management Recommend twice weekly NST and weekly MAGGIE Delivery upon presentation of severe range BPs on 2 occasionas measured 4 hrs apart or persistently elevated and poorly responsive to meds If GHTN, delivered at 37 weeks or with onset of proteiuria/symptoms If CHTN, deliver at 39 weeks in absence of severe features FINAL DX: Hypertension in without pre-eclampsia
== END 2020-11-24 13:30 | disposition home or self-care (01) ==
LOC: WFO 10:20 → FBP 10:22 → WFO 13:30
PROVIDERS: ATTEND Obstetrics & Gynecology
DX: O13.3 Gestational [pregnancy-induced] hypertension without significant proteinuria, third trimester (principal); Z3A.36 36 weeks gestation of pregnancy
CPT/HCPCS: 59025; 80053; 82565; 82570; 83615; 84156; 84450; 84550; 85025; 87081; 87797

== ENCOUNTER 2020-11-26 11:56 | Outpatient (CLI) | payer OTHER ==
[2020-11-26 12:27] LABS: BASOPHILS % (AUTO) 0.2 %; EOSINOPHILS # (AUTO) 0.1 10^3/uL (0.0-0.7); EOSINOPHILS % (AUTO) 0.5 %; HGB - HEMOGLOBIN 11.8 g/dL (12.0-16.0); LYMPHOCYTES # (AUTO) 2.4 10^3/uL (1.5-3.5); MEAN CORPUSCULAR HEMOGLOBIN 23.2 pg (27.0-31.0); MEAN CORPUSCULAR HGB CONC 31.1 g/dL (32.0-36.0); MEAN CORPUSCULAR VOLUME 74.7 fL (81.0-99.0); MEAN PLATELET VOLUME 10.2 fL (7.9-10.8); MONOCYTES # (AUTO) 0.9 10^3/uL (0.0-1.0); MONOCYTES % (AUTO) 7.8 %; NEUTROPHILS # (AUTO) 7.4 10^3/uL (1.5-6.6); NEUTROPHILS % (AUTO) 68.4 %; PLT - PLATELET COUNT 285 10^3/uL (130-450); RED BLOOD COUNT 5.09 10^6/uL (4.20-5.40); RED CELL DISTRIBUTION WIDTH 14.7 % (12.0-15.0); WHITE BLOOD COUNT 10.8 x10^3/uL (4.8-10.8)
[2020-11-26 12:56] LABS: ALBUMIN 2.7 g/dL (3.2-5.5); ALBUMIN/GLOBULIN RATIO 0.9 (1.0-2.2); BILIRUBIN,TOTAL 0.5 mg/dL (0.2-1.0); CALCIUM 9.9 mg/dL (8.5-10.3); CREATININE 0.6 mg/dL (0.4-1.0); TOTAL PROTEIN 5.7 g/dL (6.7-8.2)
[2020-11-26 13:00] VITALS: BP 135/86
[2020-11-26 13:29] LABS: CREATININE,URINE 77.6 mg/dL; PROTEIN/CREATININE RATIO,URINE 0.1 (<=0.2)
--- NOTE | 2020-11-26 14:13 | PROCEDURE REPORT ---
- HPI Diagnosis/Indication for NST: Gestational Hypertension Current EDU 12/20/20 Gestation 36 Weeks and 4 Days 4 Para 3 Vital Signs Temperature 97.9 F 11/26/20 12:14 Heart Rate 90 11/26/20 12:14 Respiratory Rate 17 11/26/20 12:14 Blood Pressure 149/94 H 11/26/20 12:14 O2 Saturation 98 11/26/20 12:14 Temperature 97.9 F 11/26/20 12:14 Heart Rate 91 11/26/20 12:31 Respiratory Rate 17 11/26/20 12:14 Blood Pressure 135/86 H 11/26/20 12:59 O2 Saturation 98 11/26/20 12:14 - NST Procedure NST Procedure Start Date 11/26/20 Start Time 12:10 Stop Time 13:00 Vibroacoustic Stimulation Used No Patient States Movement Yes - Results and Plan Findings/Impression: Baseline: 120 BPM Variability: Moderate Accelerations: Present Decelerations: Absent Trends in FHR over time: no changes [place] contractions in 10 minutes: 0 Impression: reactive Category 1 NST S: Presented with elevated BP at home, up to 160/110 on one occasion. Started taking BP more frequently, waited for on-call doc to respond to her, but there was an issue on on-call communication and she didn't hear back. By then BP were back to normal to mild. Had scintillation and moderate HERNÁNDEZ when she had the elevated BP. Scintillation lasted for 20min. HERNÁNDEZ improved with tylenol but didn't go away completely. Has a hx of chronic migraines improved during the . For the past week has felt HERNÁNDEZ different than her usual migraines--mild to moderate--bilateral frontal + occiptal. Current HERNÁNDEZ is mild. Has upper abd pain when she has heartburn and this is immediately improved with tums. No increase in edema. O: Initial BP 149/94, remainder normal including 109/86 Alert, appears well, NAD Abd soft, gravid, NT Trace LE ankle edema bilat. DTR2+ bilat patellar a/P: 35yo at 36w4d with gestational hypertension, currently without severe features. Labs and P:C normal, BP low mild to normal range, only sx is a mild chronic HERNÁNDEZ. Rescheduled to 37w1d, discussed preop protocols and covid swab done. In the meantime, pt will come to triage IMMEDIATELY PRN sx or severe -range BP and will be NPO on her way in.
== END 2020-11-26 14:18 | disposition home or self-care (01) ==
LOC: WFO 11:56 → FBP 11:57 → WFO 14:18
PROVIDERS: ATTEND Obstetrics & Gynecology
DX: O13.3 Gestational [pregnancy-induced] hypertension without significant proteinuria, third trimester (principal); Z3A.36 36 weeks gestation of pregnancy; Z20.822 Contact with and (suspected) exposure to COVID-19
CPT/HCPCS: 80053; 82570; 84156; 85025; 99213

== ENCOUNTER 2020-11-30 07:52 | Inpatient (IN) | payer OTHER ==
[2020-11-30] MEDS ORDERED: LACTATED RINGERS 1,000 ML IV ONE ×2 (09:06→13:11)
[2020-11-30] MEDS ORDERED: MORPHINE 2 MG/ML CARPUJECT IVP PRN (09:13)
[2020-11-30] MEDS ORDERED: ONDANSETRON 4 MG/2 ML VIAL IVP PRN (09:13)
[2020-11-30] MEDS ORDERED: METOCLOPRAMIDE 10 MG/2 ML VIAL IVP PRN (09:13)
[2020-11-30] MEDS ORDERED: NALOXONE 0.4 MG/ML VIAL IVP PRN (09:13)
[2020-11-30] MEDS ORDERED: HYDROmorphone 0.5 MG/0.5 ML SYRINGE IVP PRN (09:13)
[2020-11-30] MEDS ORDERED: ePHEDrine 50 MG/ML VIAL IVP PRN (09:13)
[2020-11-30] MEDS ORDERED: ATROPINE ABBOJECT 1 MG/10 ML SYRINGE IVP PRN (09:13)
--- NOTE | 2020-11-30 09:13 | ANESTHESIA ---
Pre-Anesthesia VS, & Labs - Diagnosis Repeat section - Procedure section with bilateral tubal ligation Vital Signs: Temp Pulse Resp BP Pulse Ox 36.9 C 86 20 133/82 H 11/30/20 08:52 11/30/20 08:52 11/30/20 08:52 11/30/20 08:52 Height: 5 ft 6 in - NPO >8 hours - Is Patient ?: Yes - Lab Results Lab results reviewed: Yes Home Medications and Allergies Levothyroxine Sodium [Synthroid] 175 mcg ORAL DAILY 06/19/17 Allergies/Adverse Reactions: Allergies Allergy/AdvReac Type Severity Reaction Status Date / Time No Known Drug Allergies Allergy Verified 06/17/20 16:00 Anes History & Medical History - Anesthetic History Anesthesia Complications: reports: No previous complications Family history of Anesthesia Complications: Denies Family history of Malignant Hyperthermia: Denies - Medical History Cardiovascular: reports: Hypertension Gastrointestinal: reports: None Neuro: reports: Migraines Endocrine/Autoimmune: reports: HyPOthyroidism Smoking Status: Never smoker - Surgical History Gynecologic: section (x3) Exam General: Alert, Oriented x3, Cooperative, No acute distress Dental: WNL Mouth Openin Fingerbreadth Neck Mobility: Normal Mallampati classification: II Respiratory: Lungs clear, Normal breath sounds, No respiratory distress, No accessory muscle use Cardiovascular: Regular rate, Normal S1, Normal S2, No murmurs Plan Anesthesia Type: Spinal, Transverse Abdominis Plane (TAP) Block Regional Block: Per Surgeon's request for Post Op pain control Consent for Procedure(s) Verified and Reviewed: Yes Code Status: Attempt Resuscitation ASA classification: 3-Severe systemic disease Is this case an emergency?: No
[2020-11-30] MEDS ORDERED: ceFAZolin 3 GM in SODIUM CHLORIDE 0.9% 100ML 100 ML IV ONE (09:37)
[2020-11-30 09:53] LABS: BASOPHILS % (AUTO) 0.3 %; EOSINOPHILS # (AUTO) 0.1 10^3/uL (0.0-0.7); EOSINOPHILS % (AUTO) 0.5 %; HGB - HEMOGLOBIN 11.4 g/dL (12.0-16.0); LYMPHOCYTES % (AUTO) 20.3 %; MEAN CORPUSCULAR HEMOGLOBIN 23.8 pg (27.0-31.0); MEAN CORPUSCULAR HGB CONC 31.9 g/dL (32.0-36.0); MEAN CORPUSCULAR VOLUME 74.4 fL (81.0-99.0); MEAN PLATELET VOLUME 10.5 fL (7.9-10.8); MONOCYTES # (AUTO) 0.7 10^3/uL (0.0-1.0); MONOCYTES % (AUTO) 7.2 %; NEUTROPHILS # (AUTO) 7.1 10^3/uL (1.5-6.6); PLT - PLATELET COUNT 278 10^3/uL (130-450); RED CELL DISTRIBUTION WIDTH 14.8 % (12.0-15.0)
[2020-11-30] MEDS ORDERED: LACTATED RINGERS 1,000 ML IV SCH ×2 (10:00→14:00)
[2020-11-30 10:02] LABS: ALBUMIN 2.7 g/dL (3.2-5.5); ALBUMIN/GLOBULIN RATIO 0.8 (1.0-2.2); BILIRUBIN,TOTAL 0.4 mg/dL (0.2-1.0); CALCIUM 9.5 mg/dL (8.5-10.3); CREATININE 0.5 mg/dL (0.4-1.0); TOTAL PROTEIN 6.2 g/dL (6.7-8.2)
--- NOTE | 2020-11-30 10:15 | PREOP HISTORY & PHYSICAL ---
DATE OF SERVICE: 11/30/2020 Physician: Ángel Monk MD IDENTIFICATION: The patient is a 35-year-old G4, P3 female who is currently 37 weeks and 1 day. CHIEF COMPLAINT: 1. Gestational hypertension. 2. Previous section x3. 3. Undesired fertility. PRESENTING HISTORY: Patient started her OB care at 12 weeks EGA. She was noted to have preeclampsia with her previous twin gestation. For this reason, she was started on baby aspirin daily. She has had 3 previous sections. She is desiring salpingectomy. She is aware that this is a permanent procedure. Her course near the end of the showed blood pressures which were increasing. She was monitoring her blood pressure at home, was with limited activity at home. About the or 3rd, she was noticing blood pressures 160s over 100s at home. However, her blood pressures in the office were within normal limits with the exception on the 2nd her blood pressure was 144/86. She was sent to labor and delivery, at which time preeclamptic labs were drawn. Her uric acid was noted to be normal, her protein-creatinine ratio was 0.1, and her platelets were stable. She continued to do home blood pressure monitor and come in for NSTs. It was decided to proceed on with section because of her gestational hypertension. Patient has had an ultrasound, which showed the baby to be 99th percentile as well as a 75th percentile for MAGGIE. PAST MEDICAL HISTORY: Gestational hypertension, anxiety, hypothyroidism, Blanco's thyroiditis. PAST SURGICAL HISTORY: section x3, colposcopy with LEEP. ALLERGIES: NONE KNOWN. CURRENT MEDICATIONS: vitamins and baby aspirin daily. HABITS: The patient denies use of alcohol, tobacco or street or addictive drugs. SOCIAL HISTORY: The patient is active [employer], is also to active [employer]. FAMILY HISTORY: Positive for a mother who had endometrial cancer, father with AL at 55 years of age. IMPRESSION: 1. A 35-year-old G4, P3, at 37 weeks and 3 days with previous section. 2. Gestational hypertension. 3. Previous section. PLAN: After reviewing the data, it was decided to proceed on with a repeat low- transverse section. The risks and benefits were explained to the patient including those, but not limited to, bleeding, infection, injury to the pelvic organs. She is aware of the potential for DVT with PE as well as postoperative adhesions, which could cause pain, bowel obstruction, and infertility. She is also desirous of having her tubes removed. She is aware that this is a permanent procedure. We have also raised the concerns about since the baby is 37 weeks that there is an increased risk of the baby having TTNB or other respiratory issues. We will proceed on with section. We will have 2 large bore catheters in. We will have blood typed and crossed because of concerns about atony because of markedly dilated uterus. TD: 11/30/2020 09:34 EMPERATRIZ
[2020-11-30] MEDS ORDERED: BUPIVACAINE 0.5% PF 30 ML VIAL ONE (10:35)
[2020-11-30] MEDS ORDERED: LIDOCAINE 2%-EPI 1:100000 20 ML MDV ONE (10:35)
[2020-11-30 10:40] LABS: CREATININE,URINE 124.2 mg/dL; PROTEIN/CREATININE RATIO,URINE 0.1 (<=0.2)
[2020-11-30] MEDS ORDERED: fentaNYL 100 MCG/2 ML VIAL ONE (10:46)
[2020-11-30] MEDS ORDERED: OXYTOCIN 10 UNIT/ML VIAL ONE ×2 (10:47→12:37)
[2020-11-30] MEDS ORDERED: ROPIVACAINE 0.5% PF 20 ML AMPULE ONE (10:47)
[2020-11-30] MEDS ORDERED: DEXAMETHASONE 4 MG/ML VIAL ONE (10:47)
[2020-11-30] MEDS ORDERED: SODIUM CHLORIDE 0.9% 30 ML ONE (10:47)
[2020-11-30] MEDS ORDERED: ePHEDrine 50 MG/ML VIAL IVP ONE (10:49)
[2020-11-30] MEDS ORDERED: CARBOPROST TROMETHAMINE 250 MCG/ML AMP IM ONE (10:55)
[2020-11-30] MEDS ORDERED: BUPIVACAINE 0.5% PF 30 ML VIAL SUBQ ONE (11:18)
[2020-11-30] MEDS ORDERED: LIDOCAINE 2%-EPI 1:100000 20 ML MDV SUBQ ONE (11:18)
[2020-11-30] MEDS ORDERED: MIDAZOLAM 2 MG/2 ML VIAL ONE (12:22)
[2020-11-30] MEDS ORDERED: ONDANSETRON 4 MG/2 ML VIAL ONE (12:22)
[2020-11-30] MEDS ORDERED: PROPOFOL 200 MG/20 ML VIAL IVP ONE (12:54)
[2020-11-30] MEDS ORDERED: FERRIC GLUCONATE 125 MG in SODIUM CHLORIDE 0.9% 100ML 100 ML IV ONE (13:03)
[2020-11-30] MEDS ORDERED: SODIUM CHLORIDE FLUSH 0.9% 10 ML SYRINGE IVP PRN (13:03)
[2020-11-30] MEDS ORDERED: OXYTOCIN/SODIUM CHLORIDE 500 ML IV PRN (13:03)
--- NOTE | 2020-11-30 13:11 | OPERATIVE REPORT ---
Operative Report - General Admit Date: 11/30/20 Procedure Date: 11/30/20 Planned Procedure: PLTC/S with BS Pre-Op Diagnosis: 37 weeks, GHTN, requests TL Procedure Performed: RLTC/S with T incision and BS - Procedure Note Primary Surgeon: Ángel Monk MD Secondary Surgeon: Estephania Serrano MD Anesthesia Provider: Rosa Acevedo CRNA Anesthesia Technique: MAC, Spinal Estimated Blood Loss (mL): 1,000 Findings: baby transverse head to the Left hands down
--- NOTE | 2020-11-30 13:18 | ANESTHESIA POST OP EVALUATION ---
Anesthesia Post Eval - Post Anesthesia Eval Vitals: Last Vital Signs Temp 36.7 C 11/30/20 08:54 Pulse 86 11/30/20 08:54 Resp 20 11/30/20 08:52 BP 138/86 H 11/30/20 10:30 Pulse Ox 98 11/30/20 08:54 CV Function Including HR & BP: positive: Stable Pain Control: positive: Satisfactory Nausea & Vomiting: positive: Negative Mental Status: positive: Baseline Respiratory Status: Airway Patent Hydration Status: Satisfactory Anesthesia Complications: positive: None
[2020-11-30] MEDS: fentaNYL 100 MCG/2 ML VIAL IVP PRN ×2 (13:21→13:42)
[2020-11-30] MEDS: KETOROLAC 30 MG/ML VIAL IVP SCH ×2 (14:18→20:07)
[2020-11-30] MEDS: SODIUM CHLORIDE FLUSH 0.9% 10 ML SYRINGE IVP SCH ×2 (14:19→20:07)
[2020-11-30] MEDS: oxyCODONE 5 MG TABLET PO PRN ×2 (15:27→23:33)
[2020-11-30] MEDS: ACETAMINOPHEN 500 MG TABLET PO SCH ×2 (15:27→23:32)
--- NOTE | 2020-11-30 17:21 | OPERATIVE REPORT ---
DATE OF SERVICE: 11/30/2020 Physician: Ángel Monk MD PREOPERATIVE DIAGNOSES 1. 37 weeks and 1 day. 2. Gestational hypertension. 3. Previous section. 4. Undesired fertility. POSTOPERATIVE DIAGNOSES 1. 37 weeks and 1 day. 2. Gestational hypertension. 3. Previous section. 4. Undesired fertility. 5. Baby in transverse lie with head to the left. PROCEDURE PERFORMED: Repeat low transverse with T extension C Section. Bilateral Salpingectomy SURGEON: Ángel Monk MD. [employer] MACHINE OPERATOR: Estephania Serrano MD. STAKING PRESS OPERATOR: Shaheen PINEDA. ANESTHETIC: Spinal with IV sedation at the end. ESTIMATED BLOOD LOSS: 1000 mL. FINDINGS: Upon entering the abdominal cavity, there were copious amounts of amniotic fluid encountered. The was noted to be transverse lie with the extremities down. The head was to the patient's right. DESCRIPTION IN DETAIL: Following adequate spinal anesthesia, the patient was placed in the supine position with a roll under the right hip. She was then prepped and draped in the usual fashion. A timeout was performed, at which time concerns were addressed about hemorrhage because of the largely dilated uterus. The procedure was commenced at that time. A Pfannenstiel incision was carried down through the subcutaneous tissue to the fascia. The fascia was incised transversely, then using both blunt and sharp dissection it was freed from the rectus abdominis and pyramidalis. The abdomen was entered high secondary to scar tissue from her previous section. Care was taken to be very careful about skeletonizing over the bladder to decrease risks of injury to the bladder. A bladder retractor was placed and then a bladder flap was developed using both blunt and sharp dissection. A low transverse uterine incision was accomplished using a #10 blade. This was scored all the way down to the amniotic membranes, but not incising the membranes. Bandage scissors were used to extend this incision laterally; finger spread technique was carried the rest of the way. At this point, the membranes were ruptured. Copious amounts of clear amniotic fluid was encountered. At this point, a hand of the infant was felt to be in the incision. This was most likely the left hand. This was reduced and attempt was made to spin the baby to vertex. This was very difficult in that the uterus was in the middle of a contraction. At this point, the head was once again tried to be rotated, but it was unsuccessful. The incision was then T'd and then once again unsuccessful, so the feet of the were grasped and brought through the incision. The arms were swept down. The head was delivered. At this point, the cord was doubly clamped and divided, and the was handed to the nursery team that was standing by. A segment of cord was clamped and sent for cord gases. Blood samples were obtained. Placenta was then delivered with some difficulty in that the uterus was syed at this time. At this point, it was eventually delivered. The uterus was exteriorized, wrapped in a moist lap, and cleansed in the internal portion with a dry lap. At this point,, the T-incision was closed in 3 layers utilizing 0 Vicryl with running locking sutures on all layers with the exception of the peritoneal surface. The low transverse uterine incision was then closed with a running locking suture of 0 Vicryl with an imbricating layer of 0 Vicryl. Good hemostasis was observed. At this point, the cul-de-sac was cleaned of any clot and the estimated blood loss was made at this time. It was felt as though the predominant amount of the blood loss was secondary to amniotic fluid. The right fallopian tube was grasped with [place]cocks. Then, utilizing a LigaSure, the mesosalpinx was cauterized and transected sequentially all the way up to the cornua. Good hemostasis was observed at this time. The left fallopian tube was treated in an identical fashion. Both incisions were inspected for bleeding, none was noted. The uterus was attempted to be placed back in the abdominal cavity; however, because of uterine size, additional anesthesia had to be administered. The uterus was then reduced. The gutters were inspected for clots and none was noted. The fallopian tubes were both inspected and there incision sites appeared to be intact. The uterine incision noted to have no bleeding. The peritoneum was closed utilizing 2-0 Vicryl, rectus reapproximated with [id number] of 2-0 Vicryl as well as 0 Vicryl. There was no evidence of any bleeding, so the fascia was closed utilizing looped PDS. The subcutaneous tissue was closed using 2-0 Vicryl and subcuticular 4-0 Monocryl. Steri-Strips were applied and then a wound VAC was placed. The patient tolerated the procedure well and following this Anesthesia placed a TAP block. She was then taken to recovery in stable condition. Sponge and needle counts were correct. During the procedure Dr Serrano was indispensable with assistance with retraction, suction, fundal pressure and advice. TD: 11/30/2020 13:25 MTDD
[2020-11-30] MEDS: DOCUSATE SODIUM 100 MG CAPSULE PO SCH (20:52)
[2020-12-01] MEDS ORDERED: MORPHINE 2 MG/ML CARPUJECT IVP SCH (01:00)
[2020-12-01] MEDS ORDERED: oxyCODONE 5 MG TABLET PO PRN (01:00)
[2020-12-01] MEDS ORDERED: oxyCODONE 5 MG TABLET PO ONE (01:26)
[2020-12-01] MEDS: KETOROLAC 30 MG/ML VIAL IVP SCH ×2 (02:34→08:34)
[2020-12-01 05:28] LABS: BASOPHILS % (AUTO) 0.3 %; EOSINOPHILS % (AUTO) 0.1 %; HGB - HEMOGLOBIN 9.7 g/dL (12.0-16.0); LYMPHOCYTES % (AUTO) 12.6 %; MEAN CORPUSCULAR VOLUME 74.3 fL (81.0-99.0); MEAN PLATELET VOLUME 10.1 fL (7.9-10.8); MONOCYTES # (AUTO) 1.1 10^3/uL (0.0-1.0); MONOCYTES % (AUTO) 6.9 %; NEUTROPHILS # (AUTO) 12.4 10^3/uL (1.5-6.6); NEUTROPHILS % (AUTO) 79.2 %; PLT - PLATELET COUNT 294 10^3/uL (130-450); RED BLOOD COUNT 4.21 10^6/uL (4.20-5.40); RED CELL DISTRIBUTION WIDTH 14.8 % (12.0-15.0); WHITE BLOOD COUNT 15.7 x10^3/uL (4.8-10.8)
[2020-12-01] MEDS: oxyCODONE 5 MG TABLET PO PRN ×5 (05:38→20:18)
[2020-12-01] MEDS: DOCUSATE SODIUM 100 MG CAPSULE PO SCH ×2 (08:35→21:13)
[2020-12-01] MEDS: ACETAMINOPHEN 500 MG TABLET PO SCH ×2 (08:35→16:38)
--- NOTE | 2020-12-01 09:01 | PROVIDER PROGRESS NOTE ---
Subjective - General Admit Date: 11/30/20 Procedure Date: 11/30/20 Post Op Days: 1 Procedure Performed: RTC/S [facility] BS - Review of Systems Wound/Incisions: positive: Dressing dry and intact General: positive: No symptoms (PAIN 5/10) Pulmonary: positive: No symptoms, Shortness of breath, Pleuritic chest pain Cardiovascular: positive: No symptoms, Chest pain, Palpitations Gastrointestinal: positive: Flatus Genitourinary: positive: No symptoms Objective - Patient Data Reviewed Vital Signs: Yes Vital Signs: Vital Signs x48h Temp Pulse Resp BP Pulse Ox 12/01/20 08:01 137/88 H 12/01/20 07:40 36.8 C 99 18 158/93 H 100 12/01/20 04:30 36.7 C 83 16 125/64 99 12/01/20 02:44 16 Weight: Weight 11/29/20 11/30/20 12/01/20 23:59 23:59 23:59 Weight (kg) 123.831 kg Intake & Output: Intake and Output Totals x24h 11/29/20 11/30/20 12/01/20 23:59 23:59 23:59 Intake Total 3111.25 900 Output Total 3055 1140 Balance 56.25 -240 - Lab Results Lab Results: 12/01/20 05:24 11/30/20 09:30 Other Lab Results: Lab Results x24hrs 12/01/20 11/30/20 11/30/20 Range/Units 05:24 09:45 09:30 WBC 15.7 H (4.8-10.8) x10^3/uL RBC 4.21 (4.20-5.40) 10^6/uL Hgb 9.7 L (12.0-16.0) g/dL Hct 31.3 L (37.0-47.0) % MCV 74.3 L (81.0-99.0) fL MCH 23.0 L (27.0-31.0) pg MCHC 31.0 L (32.0-36.0) g/dL RDW 14.8 (12.0-15.0) % Plt Count 294 (130-450) 10^3/uL MPV 10.1 (7.9-10.8) fL Neut # (Auto) 12.4 H (1.5-6.6) 10^3/uL Lymph # (Auto) 2.0 (1.5-3.5) 10^3/uL [place] # (Auto) 1.1 H (0.0-1.0) 10^3/uL Eos # (Auto) 0.0 (0.0-0.7) 10^3/uL Baso # (Auto) 0.0 (0.0-0.1) 10^3/uL Absolute Nucleated RBC 0.00 x10^3/uL Nucleated RBC % 0.0 /100WBC Sodium 139 (135-145) mmol/L Potassium 3.9 (3.5-5.0) mmol/L Chloride 105 (101-111) mmol/L Carbon Dioxide 22 (21-32) mmol/L Anion Gap 12.0 (6-13) BUN 6 (6-20) mg/dL Creatinine 0.5 (0.4-1.0) mg/dL Estimated GFR (MDRD) 140 (>89) Glucose 80 (70-100) mg/dL Calcium 9.5 (8.5-10.3) mg/dL Total Bilirubin 0.4 (0.2-1.0) mg/dL AST 15 (10-42) IU/L ALT 14 (10-60) IU/L Alkaline Phosphatase 131 H (42-121) IU/L Total Protein 6.2 L (6.7-8.2) g/dL Albumin 2.7 L (3.2-5.5) g/dL Globulin 3.5 (2.1-4.2) g/dL Albumin/Globulin Ratio 0.8 L (1.0-2.2) Urine Creatinine 124.2 mg/dL Ur Total Protein Timed 12 mg/dL Protein/Creatinin Ratio 0.1 (<=0.2) Blood Type Antibody Screen Crossmatch IS Only 11/30/20 11/30/20 Range/Units 09:30 09:30 WBC 10.0 (4.8-10.8) x10^3/uL RBC 4.80 (4.20-5.40) 10^6/uL Hgb 11.4 L (12.0-16.0) g/dL Hct 35.7 L (37.0-47.0) % MCV 74.4 L (81.0-99.0) fL MCH 23.8 L (27.0-31.0) pg MCHC 31.9 L (32.0-36.0) g/dL RDW 14.8 (12.0-15.0) % Plt Count 278 (130-450) 10^3/uL MPV 10.5 (7.9-10.8) fL Neut # (Auto) 7.1 H (1.5-6.6) 10^3/uL Lymph # (Auto) 2.0 (1.5-3.5) 10^3/uL [place] # (Auto) 0.7 (0.0-1.0) 10^3/uL Eos # (Auto) 0.1 (0.0-0.7) 10^3/uL Baso # (Auto) 0.0 (0.0-0.1) 10^3/uL Absolute Nucleated RBC 0.00 x10^3/uL Nucleated RBC % 0.0 /100WBC Sodium (135-145) mmol/L Potassium (3.5-5.0) mmol/L Chloride (101-111) mmol/L Carbon Dioxide (21-32) mmol/L Anion Gap (6-13) BUN (6-20) mg/dL Creatinine (0.4-1.0) mg/dL Estimated GFR (MDRD) (>89) Glucose (70-100) mg/dL Calcium (8.5-10.3) mg/dL Total Bilirubin (0.2-1.0) mg/dL AST (10-42) IU/L ALT (10-60) IU/L Alkaline Phosphatase (42-121) IU/L Total Protein (6.7-8.2) g/dL Albumin (3.2-5.5) g/dL Globulin (2.1-4.2) g/dL Albumin/Globulin Ratio (1.0-2.2) Urine Creatinine mg/dL Ur Total Protein Timed mg/dL Protein/Creatinin Ratio (<=0.2) Blood Type B POSITIVE Antibody Screen NEGATIVE Crossmatch IS Only See Detail - Current Medications Current Medications: Current Medications Generic Name Dose Route Start Last Admin Trade Name Freq PRN Reason Stop Dose Admin Acetaminophen 1,000 mg 11/30/20 14:00 12/01/20 08:35 Acetaminophen 500 Mg Tablet PO 1,000 mg Q8H FELIZ Administration Docusate Sodium 100 mg 11/30/20 21:00 12/01/20 08:35 Docusate Sodium 100 Mg Capsule PO 100 mg BID FELIZ Administration Fentanyl 25 - 50 mcg 11/30/20 09:13 11/30/20 13:42 Fentanyl 100 Mcg/2 Ml Vial IVP 12/01/20 09:13 50 mcg Q5M PRN Administration BREAKTHROUGH PAIN (2nd Choice) Lactated Ringer's 1,000 mls @ 100 mls/hr 11/30/20 14:00 11/30/20 14:19 Lr IV 100 mls/hr .Q10H FELIZ Administration Oxytocin/Sodium Chloride 500 mls @ 999 mls/hr 11/30/20 13:03 11/30/20 17:00 Pitocin/Sodium Chloride IV 0 milliunit/min PRN PRN 0 mls/hr POST- HEMORR PREVENTION Titration Protocol 999 MILLIUNIT/MIN Morphine Sulfate 2 mg 12/01/20 01:00 12/01/20 01:15 Morphine 2 Mg/Ml Carpuject IVP 12/02/20 00:59 2 mg ONCE FELIZ Administration Ondansetron HCl 4 mg 11/30/20 09:13 11/30/20 14:19 Ondansetron 4 Mg/2 Ml Vial IVP 12/01/20 09:13 4 mg ONCE PRN Administration N/V (First Choice) Oxycodone HCl 5 mg 12/01/20 01:02 12/01/20 08:37 Oxycodone 5 Mg Tablet PO 5 mg Q4HR PRN Administration PAIN Sodium Chloride 10 ml 11/30/20 17:00 11/30/20 20:07 Sodium Chloride Flush 0.9% 10 Ml Syringe IVP 10 ml 0100,0900,1700 FELIZ Administration - Physical Exam Wound/Incisions: positive: Dressing dry and intact General Appearance: positive: No acute distress, Alert Eyes Bilateral: positive: PERRL Respiratory: positive: Chest non-tender, No respiratory distress, Breath sounds nml Cardiovascular: positive: Regular rate & rhythm, No murmur, No gallop Abdomen: positive: Non-tender Back: negative: CVA tenderness (R), CVA tenderness (L) Skin: positive: Color nml, No rash Extremities: negative: Calf tenderness, Sammy's sign/cords Impression/Plan - Problem List Problem List: pod #1 PROGRESSING IMPROVING
[2020-12-01] MEDS ORDERED: polyethylene glycoL 3350 17 GM PACKET PO PRN (16:31)
[2020-12-01] MEDS: IBUPROFEN 800 MG TABLET PO SCH (21:12)
[2020-12-02] MEDS: ACETAMINOPHEN 500 MG TABLET PO SCH ×2 (00:32→08:49)
[2020-12-02] MEDS: oxyCODONE 5 MG TABLET PO PRN ×3 (00:33→08:55)
[2020-12-02 08:47] VITALS: BP 138/76
[2020-12-02] MEDS: DOCUSATE SODIUM 100 MG CAPSULE PO SCH (08:49)
[2020-12-02] MEDS: IBUPROFEN 800 MG TABLET PO SCH (08:50)
--- NOTE | 2020-12-02 09:06 | PROVIDER PROGRESS NOTE ---
Subjective - General Admit Date: 11/30/20 Procedure Date: 11/30/20 Post Op Days: 2 Procedure Performed: RTC/S [facility] - Review of Systems Wound/Incisions: positive: Dressing dry and intact General: positive: No symptoms (PAIN 0-2/10) Pulmonary: positive: No symptoms, Shortness of breath, Pleuritic chest pain Cardiovascular: positive: No symptoms, Chest pain, Palpitations Gastrointestinal: positive: Flatus (NO STOOL YET) Genitourinary: positive: No symptoms Objective - Patient Data Reviewed Vital Signs: Yes Vital Signs: Vital Signs x48h Temp Pulse Resp BP Pulse Ox 12/02/20 08:41 36.6 C 93 16 138/76 H 100 12/02/20 04:50 37.1 C 87 18 130/70 99 Weight: Weight 11/30/20 12/01/20 12/02/20 23:59 23:59 23:59 Weight (kg) 123.831 kg Intake & Output: Intake and Output Totals x24h 11/30/20 12/01/20 12/02/20 23:59 23:59 23:59 Intake Total 3111.25 1400 900 Output Total 3055 1540 Balance 56.25 -140 900 - Lab Results Lab Results: 12/01/20 05:24 11/30/20 09:30 - Current Medications Current Medications: Current Medications Generic Name Dose Route Start Last Admin Trade Name Freq PRN Reason Stop Dose Admin Acetaminophen 1,000 mg 11/30/20 14:00 12/02/20 08:49 Acetaminophen 500 Mg Tablet PO 1,000 mg Q8H FELIZ Administration Docusate Sodium 100 mg 11/30/20 21:00 12/02/20 08:49 Docusate Sodium 100 Mg Capsule PO 100 mg BID FELIZ Administration Lactated Ringer's 1,000 mls @ 100 mls/hr 11/30/20 14:00 11/30/20 14:19 Lr IV 100 mls/hr .Q10H FELIZ Administration Oxytocin/Sodium Chloride 500 mls @ 999 mls/hr 11/30/20 13:03 12/02/20 07:39 Pitocin/Sodium Chloride IV Infused PRN PRN Titration POST- HEMORR PREVENTION Protocol 999 MILLIUNIT/MIN Ibuprofen 800 mg 12/01/20 21:00 12/02/20 08:50 Ibuprofen 800 Mg Tablet PO 800 mg BID FELIZ Administration Oxycodone HCl 5 mg 12/01/20 01:02 12/02/20 08:55 Oxycodone 5 Mg Tablet PO 5 mg Q4HR PRN Administration PAIN Oxycodone HCl 10 mg 12/01/20 02:13 12/01/20 20:18 Oxycodone 5 Mg Tablet PO 10 mg Q4HR PRN Administration Pain 5-10 per scale Polyethylene Glycol 17 gm 12/01/20 16:31 12/01/20 17:45 Polyethylene Glycol 3350 17 Gm Packet PO 17 gm DAILY PRN Administration Bowel Protocol Sodium Chloride 10 ml 11/30/20 17:00 11/30/20 20:07 Sodium Chloride Flush 0.9% 10 Ml Syringe IVP 10 ml 0100,0900,1700 [facility] Administration - Physical Exam Wound/Incisions: positive: Dressing dry and intact General Appearance: positive: No acute distress, Alert Respiratory: positive: Chest non-tender, No respiratory distress Cardiovascular: positive: Regular rate & rhythm, No murmur, No gallop Abdomen: positive: Non-tender, Nml bowel sounds Back: negative: CVA tenderness (R), CVA tenderness (L) Neurologic/Psychiatric: positive: Oriented x3 Impression/Plan - Problem List Problem List: POD # 2 Excellent progress. baby in nursery on CPAP. Send home. Discharge Meds Oxycodone 5 mg #15 motrin 800mg Miralax home supply
--- NOTE | 2020-12-02 09:08 | Discharge Plan ---
Discharge Plan Problem Reviewed?: Yes Disposition: Home, Self Care Condition: Good Diet: Regular Shower Restrictions: No Driving Restrictions: Yes (not while on narcotice) Weight Bearing: Full Weight No Smoking: If you smoke, Please STOP! Call for help. Follow-up with: RAIMUNDO SHEPPARD DO [Primary Care Provider] -
--- NOTE | 2020-12-16 12:32 | DISCHARGE SUMMARY ---
Physician: Ángel Monk MD DATE OF ADMISSION: 11/30/2020 DATE OF DISCHARGE: 12/02/2020 ADMITTING DIAGNOSES: 1. Thirty-seven weeks gestation. 2. Previous section. 3. Gestational hypertension. 4. Undesired fertility. DISCHARGE DIAGNOSES: 1. Thirty-seven weeks gestation. 2. Previous section. 3. Gestational hypertension. 4. Undesired fertility. 5. Transverse lie. PROCEDURES: 1. Repeat low transverse section with T-incision. 2. Bilateral salpingectomy. PRESENTING HISTORY: The patient is a 35-year-old G4, P3 female who presented at 37 weeks and 1 day. She had a history of having preeclampsia with the previous sections. For this reason, she was started on a baby aspirin on a daily basis. She was being followed with her blood pressure. She had been placed at home limited activity. Her blood pressures on the second and third shows blood pressures of 160/100 at home. However, upon presentation, her blood pressure is 144/86. She has had numerous visits. Her protein-creatinine ratio was 0.1. Her platelets were stable. She had an ultrasound which showed an ultrasound of a baby that was 99th percentile. Her MAGGIE was 75th percentile. LABORATORIES: On admission, her hemoglobin was 11.4, hematocrit was 35.7, platelets were 278. Postop, her hemoglobin fell to 9.7, platelets were at 294 and her white count increased to 15.7. Chemistries showed an elevated alkaline phosphatase. The creatinine was 0.5. Her protein-creatinine ratio was 0.1. HOSPITAL COURSE: The patient admitted, taken to the operating room, at which time upon incising the uterus, the infant was noted to be transverse with the extremities down. Multiple attempts were made to try and bring the hand and head to the incision. The incision was then T'd and then the feet were grasped and the was brought through the incision. The arms were swept, and the was delivered without difficulty. At this point, the placenta was manually delivered and then the uterus was closed. She had a tubal ligation as previously planned. Her postoperative course was unremarkable. Her pressures normalized. Her ; however, had to be sent to [place] because of respiratory concerns. She was discharged to home on the second day postop. DISCHARGE MEDICATIONS: Oxycodone 5 mg, #15, Motrin 800 mg, MiraLax home supply. The patient instructed to follow up in the clinic in 1 week. TD: 12/16/2020 08:07 EMPERATRIZ
== END 2020-12-02 09:45 | disposition home or self-care (01) | DRG 785 ==
LOC: FBP 07:52
PROVIDERS: ADMIT Obstetrics & Gynecology; ATTEND Obstetrics & Gynecology
PROC: 0UT70ZZ Resection of Bilateral Fallopian Tubes, Open Approach (ICD-10-PCS; 2020-11-30)
PROC: 10D00Z1 Extraction of Products of Conception, Low, Open Approach (ICD-10-PCS; principal; 2020-11-30 10:00)
DX: O13.4 Gestational [pregnancy-induced] hypertension without significant proteinuria, complicating childbirth (principal); Z3A.37 37 weeks gestation of pregnancy; Z37.0 Single live birth; O34.211 Maternal care for low transverse scar from previous cesarean delivery; O99.284 Endocrine, nutritional and metabolic diseases complicating childbirth; E03.9 Hypothyroidism, unspecified; Z30.2 Encounter for sterilization
CPT/HCPCS: 36415; 80053; 82570; 84156; 85025; 86850; 86900; 86901; 86920; A9270; J2916; J7120

== ENCOUNTER 2020-12-15 20:49 | Outpatient (CLI) | payer OTHER ==
--- NOTE | 2020-12-15 22:43 | Ultrasound Report ---
PROCEDURE: Duplex Ext Veins Right INDICATIONS: ACUTE DVT R LEG TECHNIQUE: Real-time imaging, as well as color and pulse Doppler interrogation, were performed of the lower extr emity deep veins from the inguinal ligament to the popliteal fossa. COMPARISON: None. FINDINGS: The deep veins are normally compressible, and free of intraluminal thrombus. Color and pu lse Doppler demonstrate normal phasic intraluminal flow. There is normal augmentation response to di stal compression maneuver. IMPRESSION: No DVT in the right lower extremity. Reviewed by: Olayinka Wallace MD on 12/15/2020 10:42 PM PST Approved by: Olayinka Wallace MD on 12/15/2020 10:42 PM PST Station ID: [id number]
== END 2020-12-15 20:50 | disposition home or self-care (01) ==
LOC: DI 20:49
PROVIDERS: ATTEND Obstetrics & Gynecology
DX: I82.401 Acute embolism and thrombosis of unspecified deep veins of right lower extremity (principal)

== ENCOUNTER 2021-05-19 18:37 | Emergency (ER) | payer OTHER ==
--- NOTE | 2021-05-19 19:49 | ED Physician Documentation ---
PD HPI URI - Stated complaint Stated Complaint: COUGH/SORE THROAT/HEADACHE/SOA - Chief complaint Chief Complaint: Heent - History obtained from History obtained from: Patient - History of Present Illness Timing - onset: Today Timing duration: Days (1) Timing details: Gradual onset Pain level max: 0 Pain level now: 0 Associated symptoms: Nasal congestion, Rhinorrhea, Productive cough Contributing factors: Sick contact Improves by: Rest Worsened by: Activity, Breathing - Additional information Additional information: Patient with rhinorrhea, congestion, sore throat, no fevers. Has been sick with same. Occasionally brings up clear mucus. She has had her Covid vaccination. She states she talked to the [facility] advice line who recommended she come here for Covid test. No difficulty breathing. 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: section (x3) - Present Medications Home Medications: Ambulatory Orders Medication Instructions Recorded Confirmed Levothyroxine Sodium [Synthroid] 175 mcg ORAL DAILY 06/19/17 04/12/20 predniSONE [Deltasone] 10 mg PO [id number] #42 tab 04/12/20 Benzonatate [Tessalon] 200 mg PO TID PRN #30 cap 05/19/21 Cetirizine HCl/Pseudoephedrine 1 each PO BID PRN #30 ea 05/19/21 [Zyrtec-D Tablet] - Allergies Allergies/Adverse Reactions: Allergies Allergy/AdvReac Type Severity Reaction Status Date / Time No Known Drug Allergies Allergy Verified 05/19/21 18:57 - Social History Does the pt smoke?: No Smoking Status: Never smoker Does the pt drink ETOH?: No Does the pt have substance abuse?: No - Immunizations Immunizations are current?: Yes - POLST Patient has POLST: No PD ED PE NORMAL - Vitals Vital signs reviewed: Yes - General General: Alert and oriented X 3, No acute distress - HEENT HEENT: Ears normal, Moist mucous membranes, Other (Mild posterior pharyngeal erythema without tonsillar exudates. Normal phonation. No trismus.) - Neck Neck: Supple, no meningeal sign - Cardiac Cardiac: RRR, Strong equal pulses - Respiratory Respiratory: No respiratory distress, Clear bilaterally - Abdomen Abdomen: Soft, Non tender, Non distended - Derm Derm: Warm and dry, No rash - Extremities Extremities: No edema - Neuro Neuro: Alert and oriented X 3 - Psych Psych: Normal mood, Normal affect Results - Vitals Vitals: Vital Signs - 24 hr 05/19/21 05/19/21 18:52 20:08 Temperature 36.8 C Heart Rate 57 L 80 Respiratory 14 16 Rate Blood Pressure 157/104 H 150/101 H O2 Saturation 97 98 Oxygen O2 Source Room air PD MEDICAL DECISION MAKING - ED course Complexity details: considered differential, d/w patient ED course: Patient is well-appearing, nontoxic. Afebrile. Appears to have a viral URI. Rhinovirus is present in the community currently. Covid test sent. We will co ntinue supportive care and have her follow-up with her doctor. Patient counseled regarding signs and symptoms for which I believe and urgent re- evaluation would be necessary. Patient with good understanding of and agreement to plan and is comfortable going home at this time This document was made in part using voice recognition software. While efforts are made to proofread this document, sound alike and grammatical errors may occur. Departure - Departure Disposition: 01 Home, Self Care Clinical Impression: Viral URI with cough Condition: Good Instructions: ED Viral Syndrome Follow-Up: RAIMUNDO SHEPPARD DO [Primary Care Provider] - As Needed Prescriptions: Benzonatate [Tessalon] 200 mg PO TID PRN #30 cap PRN Reason: Cough Cetirizine HCl/Pseudoephedrine [Zyrtec-D Tablet] 1 each PO BID PRN #30 ea PRN Reason: nasal congestion Comments: Use the medications as prescribed. Return if you worsen. This is likely rhinovirus as this is prevalent in the community currently. A Covid test was sent as well. Discharge Date/Time: 05/19/21 20:08
[2021-05-19 20:12] VITALS: BP 150/101
== END 2021-05-19 20:08 | disposition home or self-care (01) ==
LOC: ED 18:37
DX: J06.9 Acute upper respiratory infection, unspecified (principal); I10 Essential (primary) hypertension; Z20.822 Contact with and (suspected) exposure to COVID-19
CPT/HCPCS: 99283; 99284

== ENCOUNTER 2022-04-13 09:43 | Emergency (ER) | payer OTHER ==
[2022-04-13 10:25] LABS: BASOPHILS % (AUTO) 0.5 %; EOSINOPHILS % (AUTO) 0.5 %; HCT - HEMATOCRIT 43.1 % (37.0-47.0); LYMPHOCYTES # (AUTO) 2.2 10^3/uL (1.5-3.5); LYMPHOCYTES % (AUTO) 27.1 %; MEAN CORPUSCULAR HGB CONC 30.2 g/dL (32.0-36.0); MEAN CORPUSCULAR VOLUME 72.9 fL (81.0-99.0); MEAN PLATELET VOLUME 9.1 fL (7.9-10.8); MONOCYTES # (AUTO) 0.4 10^3/uL (0.0-1.0); MONOCYTES % (AUTO) 4.6 %; NEUTROPHILS # (AUTO) 5.4 10^3/uL (1.5-6.6); NEUTROPHILS % (AUTO) 66.8 %; PLT - PLATELET COUNT 404 10^3/uL (130-450); RED BLOOD COUNT 5.91 10^6/uL (4.20-5.40); RED CELL DISTRIBUTION WIDTH 15.7 % (12.0-15.0); WHITE BLOOD COUNT 8.1 x10^3/uL (4.8-10.8)
[2022-04-13 10:37] LABS: HCG UR QUAL NEGATIVE
[2022-04-13 10:50] LABS: ALBUMIN 4.2 g/dL (3.2-5.5); ALBUMIN/GLOBULIN RATIO 1.2 (1.0-2.2); BILIRUBIN,TOTAL 0.4 mg/dL (0.2-1.0); CALCIUM 9.5 mg/dL (8.5-10.3); CREATININE 0.7 mg/dL (0.4-1.0); POTASSIUM 4.1 mmol/L (3.5-5.0); TOTAL PROTEIN 7.6 g/dL (6.7-8.2)
--- NOTE | 2022-04-13 11:13 | ED Physician Documentation ---
PD HPI HEENT - Stated complaint Stated Complaint: DIZZINESS,LIGHT HEADDED - Chief complaint Chief Complaint: Neuro - History obtained from History obtained from: Patient - History of Present Illness Timing - onset: Today Timing - duration: Hours (1) Timing - details: Abrupt onset, Still present (She got up from sitting at desk at work and had onset of vertigo. With the spinning and nausea, she then felt lightheaded. No headache. Feeling general weakness as well. No focal weakness.) Location: Other (has frequent tinnitus left ear.) Worsens: Position (marked vertigo with head movement at all.) Associated symptoms: Congestion (hd COVID about 10 days ago with mostly URI symt posm. Minimal cough. Still feels congestion.). No: Fever Similar symptoms before: Diagnosis (has had vertigo in the past.) Recently seen: Not recently seen Review of Systems Constitutional: reports: Myalgias, Fatigue (for the past 10 days, improving.). denies: Fever, Chills (chills 10 days ago for few days, improved. Still with congestion.) Eyes: denies: Loss of vision, Photophobia Ears: reports: Tinnitus/ringing (for long time) Nose: reports: Rhinorrhea / runny nose, Congestion Throat: denies: Sore throat Cardiac: denies: Chest pain / pressure, Palpitations Respiratory: denies: Dyspnea, Cough GI: reports: Abdominal Pain (RUQ intermittently, more after eating, for the past 3-4 weeks.), Nausea. 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 - Past Surgical History Past Surgical History: Yes /CLOCK SMITH: section (x3) - Present Medications Home Medications: Ambulatory Orders Medication Instructions Recorded Confirmed Levothyroxine Sodium [Synthroid] 225 mcg ORAL DAILY 06/19/17 04/13/22 Cetirizine [ZyrTEC] 10 mg PO DAILY #15 tablet 04/13/22 HYDROcod/ACETAM 5/325 [[place] 5/325] 1 ea PO Q6H PRN #10 tablet 04/13/22 Meclizine HCl [Motion Sickness] 25 mg PO Q6H PRN #30 tablet 04/13/22 Pantoprazole [Protonix] 40 mg PO DAILY 30 Days #30 tablet 04/13/22 Sucralfate [Carafate] 1 gm PO BID #20 tablet 04/13/22 dexAMETHasone [Decadron] 4 mg PO DAILY #5 tablet 04/13/22 - Allergies Allergies/Adverse Reactions: Allergies Allergy/AdvReac Type Severity Reaction Status Date / Time No Known Drug Allergies Allergy Verified 04/14/22 18:06 - Social History Does the pt smoke?: No Smoking Status: Never smoker Does the pt drink ETOH?: No Does the pt have substance abuse?: No - Immunizations Immunizations are current?: Yes - POLST Patient has POLST: No PD ED PE NORMAL - Vitals Vital signs reviewed: Yes - General General: Alert and oriented X 3, Well developed/nourished, Other (holding head still. vertigo with slight movement. Nystagnus to the left. ) - HEENT HEENT: Atraumatic, Pharynx benign. No: Ears normal (no redness but does have fluid fullness behind TMs, left more than right. Serous otitis appearance. ) - Neck Neck: Supple, no meningeal sign, No adenopathy - Cardiac Cardiac: RRR, No murmur - Respiratory Respiratory: Clear bilaterally - Abdomen Abdomen: Normal bowel sounds, Soft, Non distended, No organomegaly, Other (tender without guarding RUQ. No percussion nor rebound tender. 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, No motor deficit, No sensory deficit, Normal speech, Other Eye Opening: Spontaneous Motor: Obeys Commands Verbal: Oriented GCS Score: 15 Results - Vitals Vitals: Oxygen O2 Source Room air - EKG (time done) 10:07 Rate: Rate (enter#) (63) - Labs Labs: Laboratory Tests 04/13/22 04/13/22 04/13/22 10:19 10:19 10:19 WBC 8.1 RBC 5.91 H Hgb 13.0 Hct 43.1 MCV 72.9 L MCH 22.0 L MCHC 30.2 L RDW 15.7 H Plt Count 404 MPV 9.1 Neut # (Auto) 5.4 Lymph # (Auto) 2.2 [place] # (Auto) 0.4 Eos # (Auto) 0.0 Baso # (Auto) 0.0 Absolute Nucleated RBC 0.00 Nucleated RBC % 0.0 Sodium 138 Potassium 4.1 Chloride 102 Carbon Dioxide 26 Anion Gap 10.0 BUN 12 Creatinine 0.7 Estimated GFR (MDRD) 94 Glucose 94 Calcium 9.5 Total Bilirubin 0.4 AST 23 ALT 40 Alkaline Phosphatase 105 Troponin I High Sens < 2.3 L Total Protein 7.6 Albumin 4.2 Globulin 3.4 Albumin/Globulin Ratio 1.2 Lipase 33 Urine HCG, Qual 04/13/22 10:28 WBC RBC Hgb Hct MCV MCH MCHC RDW Plt Count MPV Neut # (Auto) Lymph # (Auto) [place] # (Auto) Eos # (Auto) Baso # (Auto) Absolute Nucleated RBC Nucleated RBC % Sodium Potassium Chloride Carbon Dioxide Anion Gap BUN Creatinine Estimated GFR (MDRD) Glucose Calcium Total Bilirubin AST ALT Alkaline Phosphatase Troponin I High Sens Total Protein Albumin Globulin Albumin/Globulin Ratio Lipase Urine HCG, Qual NEGATIVE - Rads (name of study) No standard instances Radiology: Prelim report reviewed (fatty liver. Normal gallbladder and CBD.), See rad report PD MEDICAL DECISION MAKING - ED course Complexity details: reviewed results, re-evaluated patient (less nausea. Veertigo decreased but not gone. Able to sit up and turn head though. ), considered differential (Several components of symptoms with mainly positional vertigo. However also several weeks of right upper quadrant abdominal pain with last p.o. intake and feeling this morning weak and lightheaded.), d/w patient Departure - Departure Disposition: 01 Home, Self Care Clinical Impression: Positional vertigo, Sinus congestion, Light-headed feeling, Right upper quadrant abdominal pain Condition: Stable Record reviewed to determine appropriate education?: Yes Instructions: ED Cephalgia Unspecified, ED Vertigo Unspecified Follow-Up: RAIMUNDO SHEPPARD DO [Primary Care Provider] - Prescriptions: Sucralfate [Carafate] 1 gm PO BID #20 tablet dexAMETHasone [Decadron] 4 mg PO DAILY #5 tablet Meclizine HCl [Motion Sickness] 25 mg PO Q6H PRN #30 tablet PRN Reason: Vertigo HYDROcod/ACETAM 5/325 [[place] 5/325] 1 ea PO Q6H PRN #10 tablet PRN Reason: Pain Pantoprazole [Protonix] 40 mg PO DAILY 30 Days #30 tablet Cetirizine [ZyrTEC] 10 mg PO DAILY #15 tablet Comments: Rested to home today and tomorrow. Regarding the vertigo symptoms, you can use meclizine every 8 hours for the vertigo. I presume this relates to some inflammation of the inner ear from the recent viral illness and congestion. As such I would also suggest cetirizine antihistamine twice daily for a few days and then once daily after that for a week or 2. Also Decadron steroid for inflammation of the sinuses and in her ear to help with symptoms as well. Regarding the lightheaded feeling, not clear on the cause of that per se. Your basic blood tests vital signs blood pressure etc. appear normal. Your electrolytes and blood sugar are good as well. Stay well-hydrated and see how you do regarding the symptoms. For your upper abdominal pain that you have been having, your ultrasound is normal with just some mild fatty liver shown which is fairly common. Your blood test did not show any inflammation of pancreas or liver. I therefore would assume you are having the pain there more from stomach or duodenal irritation. I would treat that with acid reducing medicine daily for the next month combined with sacral fate to coat the stomach twice daily for the next 7 to 10 days. Tylenol if needed for pains. Add hydrocodone if needed for worse pain or headache etc. I wrote prescriptions for the above medications. Transmitted them to your pharmacy. I am prescribing a short course of narcotic pain medication for you. These are potentially dangerous and addictive medications that should be used carefully. These medications may constipate you. Take an [id number] stool softener such as docusate twice daily with plenty of water while taking these medications. If you go 24 hours without a bowel movement, take [id number] MiraLAX, per package instructions. Do not drink or drive while taking these medications. If you received narcotic or sedating medications while in the emergency department do not drive for 24 hours. Store this medication in a safe, secure place and out of reach of children. It is a violation of federal law to give or sell this medication to another person or to use in a manner other than prescribed. The ED will not refill narcotic prescriptions, including prescriptions lost or stolen. You can dispose of unwanted medications at the [facility]'s office or at several pharmacies such as [facility]. Forms: Activity restrictions Discharge Date/Time: 04/13/22 15:00
[2022-04-13] MEDS ORDERED: SODIUM CHLORIDE 0.9% 1,000 ML IV STA (11:33)
[2022-04-13] MEDS ORDERED: DEXAMETHASONE 10 MG/ML VIAL IVP STA (11:33)
[2022-04-13] MEDS ORDERED: diazePAM INJ 5 MG/ML SYRINGE IVP STA (11:33)
[2022-04-13] MEDS ORDERED: MECLIZINE 12.5 MG TABLET PO STA (11:33)
[2022-04-13] MEDS ORDERED: ONDANSETRON 4 MG/2 ML VIAL IVP STA (11:34)
[2022-04-13] MEDS ORDERED: KETOROLAC 15 MG/ML VIAL IVP STA (13:25)
--- NOTE | 2022-04-13 13:40 | Ultrasound Report ---
PROCEDURE: Abdomen Limited INDICATIONS: intermittent RUQ pain after eating for month TECHNIQUE: Real-time scanning was performed of the abdominal and retroperitoneal organs, with image documentatio n. COMPARISON: None. FINDINGS: Liver: Liver is normal in size and increased in echotexture. Gallbladder: No stones. Wall thickening is normal measuring 1.0 mm. Biliary ducts: Intrahepatic bile ducts are non-dilated. Extrahepatic bile duct caliber measures 3.7 mm. Normal is 6-7 mm or less in diameter, or 10 mm or less post-cholecystectomy. Pancreas: Visualized portions of the pancreas are sonographically normal. Kidneys: Right kidney measures 12.7 cm long. No hydronephrosis or nephrolithiasis. No solid masses . IMPRESSION: Unremarkable exam. Reviewed by: Keke Torres MD on 04/13/2022 1:39 PM PDT Approved by: Keke Torres MD on 04/13/2022 1:39 PM PDT Station ID: [id number]
[2022-04-13] MEDS ORDERED: HYDROmorphone 1 MG/ML CARPUJECT IVP STA ×2 (14:06→14:54)
[2022-04-13 14:30] VITALS: BP 136/88
== END 2022-04-13 15:00 | disposition home or self-care (01) ==
LOC: ED 09:43
DX: H81.10 Benign paroxysmal vertigo, unspecified ear (principal); R09.81 Nasal congestion; R10.11 Right upper quadrant pain; I10 Essential (primary) hypertension
CPT/HCPCS: 36415; 76705; 80053; 81025; 83690; 84484; 85025; 93005; 96374; 96375; 96376; 99284; 99285; A9270; J1170

== ENCOUNTER 2022-06-28 11:03 | Emergency (ER) | payer OTHER ==
[2022-06-28] MEDS ORDERED: diphenhydrAMINE INJ 50 MG/ML VIAL IM STA (12:37)
[2022-06-28] MEDS ORDERED: KETOROLAC 60 MG/2 ML VIAL IM STA (12:37)
[2022-06-28] MEDS ORDERED: DROPERIDOL 5 MG/2 ML VIAL IM STA (12:37)
--- NOTE | 2022-06-28 12:55 | ED Physician Documentation ---
PD HPI HEADACHE - Stated complaint Stated Complaint: MIGRAINE - Chief complaint Chief Complaint: Neuro - History obtained from History obtained from: Patient - History of Present Illness Timing - onset: Today Timing - onset during: Rest Timing - duration: Days (1) Timing - details: Gradual onset Pain level max: 9 Pain level now: 9 Location: Front Quality: Throbbing, Aching Associated symptoms: Nausea. No: Fever, Vomiting, Weakness, Numbness, Syncope, Seizure, Eye pain, Vision changes Improved by: Rest, Dark room Worsened by: Light, Noise Contributing factors: No: Anticoagulated - Additional information Additional information: 36-year-old female with a history of chronic migraine headaches presents to the emergency department complaining of worsening headache today. She states that she has headaches 3-4 times per week. Is on rizatriptan at home. States her migraine medication did not work today so came in for evaluation. No fevers. No chills. No trauma. Review of Systems Ten Systems: 10 systems reviewed and negative Constitutional: denies: Fever, Chills Ears: denies: Ear pain Nose: denies: Rhinorrhea / runny nose, Congestion Respiratory: denies: Cough GI: denies: Vomiting, Diarrhea Skin: denies: Rash Musculoskeletal: denies: Neck pain, Back pain Neurologic: denies: Headache PD PAST MEDICAL HISTORY - Past Medical History Past Medical History: Yes Cardiovascular: Hypertension Respiratory: None Neuro: Migraines Endocrine/Autoimmune: HyPOthyroidism GI: None SUBSTATION WIREMAN: Ovarian cysts : None HEENT: None Psych: None Musculoskeletal: None Derm: None - Past Surgical History Past Surgical History: Yes /SUBSTATION WIREMAN: section - Present Medications Home Medications: Ambulatory Orders Medication Instructions Recorded Confirmed Levothyroxine Sodium [Synthroid] 225 mcg ORAL DAILY 06/19/17 04/14/22 Cetirizine [ZyrTEC] 10 mg PO DAILY #15 tablet 04/13/22 04/14/22 HYDROcod/ACETAM 5/325 [Foster 5/325] 1 ea PO Q6H PRN #10 tablet 04/13/22 04/14/22 Meclizine HCl [Motion Sickness] 25 mg PO Q6H PRN #30 tablet 04/13/22 04/14/22 Pantoprazole [Protonix] 40 mg PO DAILY 30 Days #30 tablet 04/13/22 04/14/22 Sucralfate [Carafate] 1 gm PO BID #20 tablet 04/13/22 04/14/22 dexAMETHasone [Decadron] 4 mg PO DAILY #5 tablet 04/13/22 04/14/22 - Allergies Allergies/Adverse Reactions: Allergies Allergy/AdvReac Type Severity Reaction Status Date / Time No Known Drug Allergies Allergy Verified 06/28/22 11:10 - Social History Does the pt smoke?: No Smoking Status: Never smoker Does the pt drink ETOH?: No Does the pt have substance abuse?: No - Immunizations Immunizations are current?: Yes - POLST Patient has POLST: No PD ED PE NORMAL - Vitals Vital signs reviewed: Yes - General General: Alert and oriented X 3, No acute distress, Other (Lying in a dark room.) - HEENT HEENT: Atraumatic, PERRL, EOMI, Moist mucous membranes - Neck Neck: Supple, no meningeal sign - Cardiac Cardiac: RRR - Respiratory Respiratory: No respiratory distress, Clear bilaterally - Abdomen Abdomen: Soft, Non tender, Non distended - Derm Derm: Warm and dry - Extremities Extremities: No edema - Neuro Neuro: Alert and oriented X 3, staff internist office based only 2-12 intact, No motor deficit, No sensory deficit, Normal speech - Psych Psych: Normal mood, Normal affect Results - Vitals Vitals: Vital Signs - 24 hr 06/28/22 06/28/22 11:06 13:10 Temperature 36.4 C L Heart Rate 90 80 Respiratory 16 16 Rate Blood Pressure 144/88 H 153/81 H O2 Saturation 94 99 Oxygen O2 Source Room air PD MEDICAL DECISION MAKING - ED course Complexity details: re-evaluated patient, considered differential, d/w patient, d/w family ED course: 36-year-old female with her usual migraine headache. Given Toradol, droperidol, Benadryl. Headache fully resolved. Patient is asymptomatic. No indication for emergent neuroimaging. Patient counseled regarding signs and symptoms for which I believe and urgent re-evaluation would be necessary. Patient with good understanding of and agreement to plan and is comfortable going home at this time This document was made in part using voice recognition software. While efforts are made to proofread this document, sound alike and grammatical errors may occur. Departure - Departure Disposition: 01 Home, Self Care Clinical Impression: Migraine headache Qualifiers: Migraine type: unspecified Status migrainosus presence: without status migrainosus Intractability: not intractable Qualified Code(s): G43.909 - Migraine, unspecified, not intractable, without status migrainosus Condition: Good Instructions: ED Headache Migraine Follow-Up: RAIMUNDO SHEPPARD DO [Primary Care Provider] - Within 1 week Comments: Please follow-up with your doctor for further care. Return if you worsen. Do not drive or operate heavy machinery for the next 6 to 8 hours. Discharge Date/Time: 06/28/22 13:48
[2022-06-28 13:13] VITALS: BP 153/81
== END 2022-06-28 13:48 | disposition home or self-care (01) ==
LOC: ED 11:03
DX: G43.909 Migraine, unspecified, not intractable, without status migrainosus (principal); I10 Essential (primary) hypertension
CPT/HCPCS: 96372; 99283; 99284; J1200

== ENCOUNTER 2022-10-26 08:30 | Outpatient (CLI) | payer OTHER ==
[2022-10-26 09:12] VITALS: BP 122/68
--- NOTE | 2022-10-26 09:12 | SLEEP CARE CONSULTATION ---
Information from patient questionnaire entered by Leonel Lopez. I have reviewed and concur with the information entered by Leonel Lopez. This document represents the service I personally performed and the decisions made by me, Britta Bryan ARNP. History of Present Illness Service Date and Time: 10/26/2022 0830 Reason for Visit: New patient Chief Complaint: reports: Unrefreshed sleep, Snoring, Excessive daytime sleepiness, Observed pauses in breathing, Fatigue, Frequent awakenings at night Date of Onset: AT LEAST 2 YRS Usual bedtime: 8-9PM Time it takes to fall asleep: ALMOST IMMEDIATELY Snores at night: Yes Observed to quit breathing while asleep: Yes Sleeps alone due to snoring: Yes Number of times waking at night: 5+ Reasons for waking at night: reports: Snoring, Gasping for air, Bathroom, Other (NOISE) Toss, Turn, or Twitch while sleeping: Yes Recalls having dreams: Yes Usually gets out of bed at: 5-6AM Feels refreshed in the morning: No Morning headache: Yes (3-5 days a week; RESOLVES AFTER HEADACHE POWDER ) Sleepy or fatigued during the day: Yes Ever fallen asleep while driving: No Takes day naps: Yes (2-3 days a week; last 1-2 hours) Dreams during day naps: No Prior sleep studies: No Additional HPI information: I had the pleasure of seeing SEAN SRINIVASAN today regarding the possibility of her having a sleep disorder. Her current complaints are excessive daytime sleepiness, fatigue, frequent night awakenings, observed pauses in breathing, snoring and unrefreshed sleep. She had a colonoscopy 2 years ago and was told that she had sleep apnea. She did not think much of this until she had to have another procedure after her daughter was delivered and was told the same thing. She is snoring louder and having a lot of daytime sleepiness. She is waking up gasping for air and her has told her that it sometimes sounds like she is choking. She is waking several times a night and ends up napping a lot during the day. She will sometimes fall asleep unintentionally when sitting still on couch. - Parasomnia Symptoms Ever been unable to move upon waking from sleep: No Walks in sleep: No Talks in sleep: Yes Ever acted out dreams in sleep: No Ever felt weak in the knees when startled or emotional: No Bothered by creepy, crawly, restless sensations in legs: No Problems with memory or concentration: Yes (both; memory "terrible"; hard time focusing on one task) Subjective Initial [place] Sleepiness Scale score: 20 (10/26/22) Past Medical History Past Medical History: reports: Hypertension, Hypothyroidism, Anemia, Anxiety, Depression, Other (CHRONIC MIGRAINES, POLYPS IN COLON ) Social History 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 Patient is and lives in [place]. Have you smoked in the past 12 months: Yes (for 3 months) Cigarettes per day (20/pack): 10 Alcohol use: Yes Alcohol amount and frequency: 1-2 DRINKS 1-2 TIMES A YEAR Caffeine use: Yes Caffeine amount and frequency: 1 COFFEE OR SODA 2-3 TIMES A WEEK Family History Family history of sleep disordered breathing: No Allergies and Home Medications Known drug allergies: No Drug allergies reviewed: Yes (NKDA) Home medication list reviewed: Yes Allergy and home medication list: Medications: Synthroid 200 mcg HCTZ 12.5 mg Rizatriptan, prn migraines Iron supplement, MWF Metamucil powder daily Review of Systems Cardiovascular: reports: high blood pressure Gastrointestinal: reports: heartburn Neurological: reports: headaches Psychiatric: reports: anxiety, depression Ear/Nose/Throat: reports: wisdom teeth removed. denies: tonsillectomy Endocrine: reports: thyroid disease Musculoskeletal: reports: neck pain, back pain Physical Exam Vital signs obtained and entered by: LEONEL Corbin MA Blood Pressure: 122/68 (LEFT ARM) Cuff size: regular Heart Rate: 73 O2 Saturation: 96 Height: 5 ft 6 in Weight: 247 lb 6.4 oz Body Mass Index: 39.9 BMI Classification: Obese Neck circumference: 17 Mouth and throat: narrow oropharynx Soft palate: normal Hard palate: normal Uvula: normal, long Uvula visualization: 0% Mallampati Class IV Tongue: normal in size Tonsils: 3+/kissing Neck: normal w/o lymphadenopathy or thyromegaly Heart: regular rate and rhythm Lungs: clear bilaterally Impression and Plan 1. Suspected Obstructive Sleep Apnea-Hypopnea Syndrome, as suggested by a history of loud and irregular snoring, observed cessation of breath while asleep, gasping or choking in sleep, morning headache, frequent awakening during the night, unrefreshed sleep, cognitive impairment, and excessive daytime sleepiness. Narrow oropharynx and obesity are common predisposing factors for obstructive sleep apnea-hypopnea syndrome. I recommend proceeding to polysomnography to confirm the diagnosis and to assess severity. If the patient has significant sleep disordered breathing, a manual CPAP titration study will also be performed to find the optimal treatment pressure. I informed the patient of what the sleep studies involve and after some discussion, obtained agreement to proceed. The pathophysiology of obstructive sleep apnea-hypopnea syndrome was discussed with the patient and health risks of cardiovascular and cerebrovascular disease if not treated. Risks of drowsy driving discussed in detail and patient advised to avoid long distance driving and to ladle puller at the first sign of drowsiness. Patient agreed to plan. * Schedule polysomnography * Avoid long distance driving or driving when feeling sleepy. * Avoid alcohol, sedative and muscle relaxant around bedtime. * Attempt to lose weight. * Review instructions provided by trained office staff on how to prepare for the sleep study. * Return for follow-up after sleep study completed. Counseling Topics: Weight loss health impact Visit Type: In Office Time Spent with Patient (minutes): 31 Provider Statement: I spent 100% of the Face to Face Visit with the patient with greater than 50% spent counseling the patient and coordination of care.
== END 2022-10-26 08:31 | disposition home or self-care (01) ==
LOC: SC 08:30
PROVIDERS: ATTEND Nurse Practitioner Family
DX: R06.83 Snoring (principal); R06.81 Apnea, not elsewhere classified; G47.8 Other sleep disorders; R51.9 Headache, unspecified; R41.89 Other symptoms and signs involving cognitive functions and awareness; G47.10 Hypersomnia, unspecified; F17.200 Nicotine dependence, unspecified, uncomplicated; E66.9 Obesity, unspecified; Z68.39 Body mass index [BMI] 39.0-39.9, adult
CPT/HCPCS: 99203; 99212

== ENCOUNTER 2022-10-29 19:30 | Outpatient (CLI) | payer OTHER | END 2022-10-29 19:31 | disposition home or self-care (01) | LOC: SC 19:30 | PROVIDERS: ATTEND Nurse Practitioner Family | DX: G47.33 Obstructive sleep apnea (adult) (pediatric) (principal) | CPT/HCPCS: 95810 ==

== ENCOUNTER 2023-02-16 11:35 | Day surgery (SDC) | payer OTHER ==
[2023-02-16] MEDS ORDERED: CEFAZOLIN 2G/50ML 0.9% NS 2 GM/50 ML BAG IV ONE (11:47)
[2023-02-16 11:58] LABS: HCG UR QUAL NEGATIVE
[2023-02-16] MEDS ORDERED: LACTATED RINGERS 1,000 ML IV ONE ×2 (12:10→15:54)
--- NOTE | 2023-02-16 12:13 | ANESTHESIA ---
Pre-Anesthesia VS, & Labs - Diagnosis umbilical hernia - Procedure open umbilical hernia repair with mesh Vital Signs: Temp Pulse Resp BP Pulse Ox O2 Flow Rate 36.2 C L 62 16 131/86 H 98 02/16/23 11:49 02/16/23 11:49 02/16/23 11:49 02/16/23 11:49 02/16/23 11:49 Height: 5 ft 6 in Weight (kg): 107 kg Body Mass Index: 38.0 BMI Classification: Obese - NPO >8 hours - Is Patient ?: No - Lab Results Lab results reviewed: Yes Home Medications and Allergies Home Medications: Ambulatory Orders Aspirin/Acetaminophen [Goody's Back-Body Pain Pwd Pkt] 1 each PO PRN PRN 02/06/23 Levothyroxine Sodium [Synthroid] 175 mcg PO DAILY 02/06/23 hydroCHLOROthiazide [Hydrodiuril] 25 mg PO DAILY 02/06/23 Pantoprazole [Protonix] 40 mg PO DAILY 02/16/23 Sertraline [Zoloft] 25 mg PO DAILY 02/16/23 Aspirin/Acetaminophen [Goody's Back-Body Pain Pwd Pkt] 1 each PO PRN PRN 02/06/23 Levothyroxine Sodium [Synthroid] 175 mcg PO DAILY 02/06/23 hydroCHLOROthiazide [Hydrodiuril] 25 mg PO DAILY 02/06/23 Pantoprazole [Protonix] 40 mg PO DAILY 02/16/23 Sertraline [Zoloft] 25 mg PO DAILY 02/16/23 Allergies/Adverse Reactions: Allergies Allergy/AdvReac Type Severity Reaction Status Date / Time No Known Drug Allergies Allergy Verified 11/21/22 09:51 Anes History & Medical History - Anesthetic History Anesthesia Complications: reports: No previous complications Family history of Anesthesia Complications: Denies Family history of Malignant Hyperthermia: Denies - Medical History Cardiovascular: reports: Hypertension Pulmonary: reports: Sleep apnea, CPAP use Gastrointestinal: reports: None Urinary: reports: None Neuro: reports: Migraines Musculoskeletal: reports: None Endocrine/Autoimmune: reports: HyPOthyroidism Blood Disorders: reports: None Skin: reports: None Smoking Status: Never smoker History of Cancer?: No - Surgical History General: reports: Colonoscopy Gynecologic: reports: section Exam General: Alert, Oriented x3, Cooperative Dental: WNL Mouth Openin Fingerbreadth Neck Mobility: Normal Mallampati classification: II Respiratory: Lungs clear, Normal breath sounds, No respiratory distress Cardiovascular: Regular rate Neurological: Normal speech Mental/Cognitive Status: Alert/Oriented X3, Normal for patient Cognitive Status: Within normal limits Plan Anesthesia Type: General Consent for Procedure(s) Verified and Reviewed: Yes Code Status: Attempt Resuscitation ASA classification: 3-Severe systemic disease Is this case an emergency?: No
[2023-02-16] MEDS ORDERED: fentaNYL 100 MCG/2 ML VIAL IVP PRN (12:24)
[2023-02-16] MEDS ORDERED: HYDROmorphone 0.5 MG/0.5 ML SYRINGE IVP PRN ×2 (12:24→16:07)
[2023-02-16] MEDS ORDERED: NALOXONE 0.4 MG/ML VIAL IVP PRN (12:24)
[2023-02-16] MEDS ORDERED: MORPHINE 2 MG/ML CARPUJECT IVP PRN (12:24)
[2023-02-16] MEDS ORDERED: ATROPINE ABBOJECT 1 MG/10 ML SYRINGE IVP PRN (12:24)
[2023-02-16] MEDS ORDERED: ONDANSETRON 4 MG/2 ML VIAL IVP PRN ×2 (12:24→16:07)
[2023-02-16] MEDS ORDERED: ePHEDrine 50 MG/ML VIAL IVP PRN (12:24)
[2023-02-16] MEDS ORDERED: LACTATED RINGERS 1,000 ML IV SCH (13:00)
[2023-02-16] MEDS ORDERED: PROPOFOL 200 MG/20 ML VIAL IVP ONE ×2 (13:12→15:41)
[2023-02-16] MEDS ORDERED: ROCURONIUM 50 MG/5 ML VIAL ONE (13:13)
[2023-02-16] MEDS ORDERED: LIDOCAINE-PF 2% 10 ML AMP SUBQ ONE (13:13)
[2023-02-16] MEDS ORDERED: fentaNYL 100 MCG/2 ML VIAL ONE (13:17)
[2023-02-16] MEDS ORDERED: MIDAZOLAM 2 MG/2 ML VIAL ONE (13:17)
[2023-02-16] MEDS ORDERED: BUPIVACAINE 0.25% PF 30 ML VIAL ONE (13:31)
--- NOTE | 2023-02-16 14:18 | HISTORY & PHYSICAL EXAMINATION ---
Chief Complaint - Chief Complaint Chief Complaint: painful bulge umbilicus History of Present Illness - History Obtained From Records Reviewed: yes History obtained from: pt Exam Limitations: none - History of Present Illness HPI Comment/Other: hernia umbilicus. 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: reports: Ovarian cysts : reports: None HEENT: reports: Chronic vision loss Psych: reports: None, Anxiety, Panic attacks, Post traumatic stress disorder Musculoskeletal: reports: None Derm: reports: None MRSA Hx?: No - Past Surgical History General: reports: Colonoscopy /LAYOUT TECHNICIAN: reports: section - POLST Patient has POLST: No Meds/Allgy - Home Medications Home Medications: Ambulatory Orders Medication Instructions Recorded Confirmed Aspirin/Acetaminophen [Goody's 1 each PO PRN PRN 02/06/23 02/06/23 Back-Body Pain Pwd Pkt] Levothyroxine Sodium [Synthroid] 175 mcg PO DAILY 02/06/23 02/16/23 hydroCHLOROthiazide [Hydrodiuril] 25 mg PO DAILY 02/06/23 02/06/23 Pantoprazole [Protonix] 40 mg PO DAILY 02/16/23 02/16/23 Sertraline [Zoloft] 25 mg PO DAILY 02/16/23 02/16/23 - Allergies Allergies/Adverse Reactions: Allergies Allergy/AdvReac Type Severity Reaction Status Date / Time No Known Drug Allergies Allergy Verified 11/21/22 09:51 Review of Systems - Other Findings Other Findings: 10 pt ros as above otherwise unremarkable Exam - Vital Signs Reviewed Vital Signs: Yes Vital Signs: Vital Signs x48h Temp Pulse Resp BP Pulse Ox 02/16/23 11:49 36.2 C L 62 16 131/86 H 98 - Physical Exam General Appearance: positive: No acute distress, Alert Eyes Bilateral: positive: EOMI Neck: positive: No JVD, Trachea midline Respiratory: positive: Breath sounds nml Cardiovascular: positive: Regular rate & rhythm Abdomen: positive: Other (umbilical hernia present) Neurologic/Psychiatric: positive: Oriented x3 Conclusion/Plan - Problem List (1) Umbilical hernia Conclusion/Plan: plan open repair with mesh. parq held and consent obtained - Lab Results Lab results reviewed: Yes
[2023-02-16] MEDS ORDERED: ePHEDrine 50 MG/ML VIAL IVP ONE (14:28)
[2023-02-16] MEDS ORDERED: DEXAMETHASONE 4 MG/ML VIAL ONE (14:35)
[2023-02-16] MEDS ORDERED: ONDANSETRON 4 MG/2 ML VIAL ONE (14:35)
[2023-02-16] MEDS ORDERED: BUPIVACAINE 0.25% PF 30 ML VIAL SUBQ ONE (14:37)
[2023-02-16] MEDS ORDERED: SUGAMMADEX 200 MG/2 ML VIAL IVP ONE (15:06)
[2023-02-16] MEDS ORDERED: ACETAMINOPHEN 1,000 MG/100 ML 1,000 MG/100 ML BAG IV ONE (15:35)
[2023-02-16] MEDS ORDERED: HYDROcod/ACETAM 5/325 MG TABLET PO PRN (16:07)
--- NOTE | 2023-02-16 16:15 | OPERATIVE REPORT ---
Operative Report - General Procedure Date: 02/16/23 Planned Procedure: umbilical hernia repair with mesh Pre-Op Diagnosis: incarcerated umbilical hernia Procedure Performed: open repair incarcerated 4 cm umbilical hernia Post Op Diagnosis: same - Procedure Note Primary Surgeon: sweetie lloyd Anesthesia Technique: General ET tube, Local Pathology: none Estimated Blood Loss (mL): 5 Drain/Tube Type: Other (none) Indications: painful hernia bulge Findings: as above Complications: none - Other Other Information/Narrative: The patient was properly identified brought to the operating room and placed in supine position. Sequential compression devices were placed she was prepped and draped in a sterile fashion and given preoperative antibiotics. She had a large incarcerated umbilical hernia a 3 cm vertical incision was made cephalad of the umbilicus and extended left lateral of the umbilicus. Dissection proceeded sharply. Umbilical skin was sharply excised away from the hernia sac. She had approximately 4 x 5 cm of herniated and incarcerated preperitoneal adipose tissue. The hernia sac was carefully released along the fascial defect edge the fascial defect measured 4 cm in diameter. The preperitoneal space was carefully developed largely with blunt dissection. Incarcerated preperitoneal adipose tissue was eventually reduced. The preperitoneal space was further developed. Hemostasis was assured. Approximately 1-1/2 x 3-1/2 inch tall polypropylene mesh was placed preperitoneal. It was secured with a approximately a dozen interrupted 0 Ethibond sutures. Fascia was closed over the mesh with three- point interrupted 0 Ethibond suture. No apparent complications. Umbilical skin was tacked back down to fascia with interrupted 2-0 Vicryl suture. Subcutaneous tissue was closed with interrupted 2-0 Vicryl suture. Buried interrupted subdermal 3-0 Vicryl sutures were then placed. Skin was closed with a running 4-0 Monocryl subcuticular suture. Dressing was applied. She tolerated the procedure well was awakened and brought to recovery in good condition.
--- NOTE | 2023-02-16 16:16 | ANESTHESIA POST OP EVALUATION ---
Anesthesia Post Eval - Post Anesthesia Eval Vitals: Last Vital Signs Temp 36.4 C L 02/16/23 16:10 Pulse 63 02/16/23 16:10 Resp 18 02/16/23 16:10 BP 116/71 02/16/23 16:10 Pulse Ox 97 02/16/23 16:10 O2 Flow Rate CV Function Including HR & BP: Stable Pain Control: Satisfactory Nausea & Vomiting: Negative Mental Status: Baseline Respiratory Status: Airway Patent Hydration Status: Satisfactory Anesthesia Complications: None
[2023-02-16] MEDS ORDERED: HYDROcod/ACETAM 5/325 MG TABLET ONE (16:34)
[2023-02-16 17:01] VITALS: BP 112/68
== END 2023-02-16 11:36 | disposition home or self-care (01) ==
LOC: SDS 11:35
PROVIDERS: ATTEND Surgery
DX: K42.0 Umbilical hernia with obstruction, without gangrene (principal); I10 Essential (primary) hypertension; G47.30 Sleep apnea, unspecified; E66.9 Obesity, unspecified; Z32.02 Encounter for pregnancy test, result negative; Z68.38 Body mass index [BMI] 38.0-38.9, adult
CPT/HCPCS: 49594; 81025; A9270; C1781; J0131; J0690; J7120

== ENCOUNTER 2023-06-15 09:45 | Emergency (ER) | payer OTHER ==
[2023-06-15] MEDS ORDERED: SODIUM CHLORIDE 0.9% 1,000 ML IV STA (10:21)
[2023-06-15] MEDS ORDERED: KETOROLAC 30 MG/ML VIAL IVP STA (10:22)
[2023-06-15] MEDS ORDERED: HYDROmorphone 0.5 MG/0.5 ML SYRINGE IVP STA ×2 (10:22→11:56)
[2023-06-15] MEDS ORDERED: PROMETHAZINE INJ 25 MG in SODIUM CHLORIDE 0.9% 50 ML IV STA (10:22)
--- NOTE | 2023-06-15 10:29 | ED Physician Documentation ---
History of Present Illness - Stated complaint Stated Complaint: MIGRAINE - Chief complaint Chief Complaint: General - History obtained from History obtained from: Patient - Additonal information Additional information: The patient comes to the emergency department chief complaint of migraine headache for the last few days. She has a history of migraines and takes rizatriptan, as well as Goody's headache powder which contains aspirin, acetaminophen, and caffeine. She states that the headache is better today than it was the last couple days, and that her vomiting has resolved, but the patient states that she just cannot seem to quite get under control with home meds. She states the headache is typical of her usual migraines. No fevers or chills. No neck pain, but does state that her muscles feel little tight. No other complaints at this time. PD PAST MEDICAL HISTORY - Past Medical History Cardiovascular: Hypertension Respiratory: Sleep apnea, CPAP use Neuro: Migraines Endocrine/Autoimmune: HyPOthyroidism GI: None VISION MIXER: Ovarian cysts : None HEENT: Chronic vision loss Psych: None, Anxiety, Panic attacks, Post traumatic stress disorder Musculoskeletal: None Derm: None - Past Surgical History Past Surgical History: Yes General: Colonoscopy /VISION MIXER: section - Present Medications Home Medications: Ambulatory Orders Medication Instructions Recorded Confirmed Aspirin/Acetaminophen [Goody's 1 each PO PRN PRN 02/06/23 06/15/23 Back-Body Pain Pwd Pkt] Levothyroxine Sodium [Synthroid] 175 mcg PO DAILY 02/06/23 06/15/23 hydroCHLOROthiazide [Hydrodiuril] 25 mg PO DAILY 02/06/23 06/15/23 Pantoprazole [Protonix] 40 mg PO DAILY 02/16/23 06/15/23 Sertraline [Zoloft] 25 mg PO DAILY 02/16/23 06/15/23 Ondansetron Odt [Zofran] 4 mg TL Q6H PRN #10 tablet 06/15/23 - Allergies Allergies/Adverse Reactions: Allergies Allergy/AdvReac Type Severity Reaction Status Date / Time No Known Drug Allergies Allergy Verified 06/15/23 09:54 - Social History Does the pt smoke?: No Smoking Status: Never smoker Does the pt drink ETOH?: No Does the pt have substance abuse?: No - Immunizations Immunizations are current?: Yes - POLST Patient has POLST: No PD ED PE NORMAL - Vitals Vital signs reviewed: Yes - General General: Alert and oriented X 3, No acute distress, Well developed/nourished - HEENT HEENT: Atraumatic, PERRL, EOMI, Moist mucous membranes - Neck Neck: Supple, no meningeal sign - Cardiac Cardiac: RRR, No murmur, Strong equal pulses - Respiratory Respiratory: No respiratory distress, Clear bilaterally - Abdomen Abdomen: Soft, Non tender, Non distended - Derm Derm: Normal color, Warm and dry, No rash - Extremities Extremities: No deformity - Neuro Neuro: Alert and oriented X 3, process engineer 2-12 intact, Normal speech - Psych Psych: Normal mood, Normal affect Results - Vitals Vitals: Oxygen O2 Source Room air PD Medical Decision Making - ED course Complexity details: considered differential, d/w patient, d/w family ED course: The patient was treated symptomatically with IV fluids, Phenergan, Toradol, and a small dose of Dilaudid. The patient was feeling better after symptomatic management and I felt she was stable for discharge home. We have discussed the usual indications for follow-up and return. We have also discussed symptomatic management at home. Departure - Departure Disposition: , Self Care Clinical Impression: Migraine headache Qualifiers: Migraine type: unspecified Status migrainosus presence: without status migrainosus Intractability: not intractable Qualified Code(s): G43.909 - Migraine, unspecified, not intractable, without status migrainosus Condition: Stable Instructions: ED Headache Migraine Prescriptions: Ondansetron Odt [Zofran] 4 mg TL Q6H PRN #10 tablet PRN Reason: Nausea / Vomiting Comments: You have been treated today in the emergency department for migraine headache with IV fluids and medication. You may continue to take your home meds, as well as the nausea medication that has been prescribed. The prescription for this has been electronically transmitted to the [facility] in [place]. Please follow-up with your primary doctor for further concerns. Forms: PCP List Discharge Date/Time: 06/15/23 12:40
[2023-06-15 12:19] VITALS: BP 118/84; O2SAT 98
== END 2023-06-15 12:40 | disposition home or self-care (01) ==
LOC: ED 09:45
DX: G43.909 Migraine, unspecified, not intractable, without status migrainosus (principal); I10 Essential (primary) hypertension; E03.9 Hypothyroidism, unspecified; Z79.899 Other long term (current) drug therapy
CPT/HCPCS: 96365; 96375; 96376; 99283; 99284; J1170; J7040